=== PATIENT | female | born 1940 | race Caucasian/White ===

== ENCOUNTER 2018-05-04 11:16 | Emergency (ER) | payer OTHER, SELFPAY ==
[2018-05-04 11:30] VITALS: BP 158/88; PULSE 80; RESP 14; TEMP 37.4; O2SAT 98; BMI 21.2
--- NOTE | 2018-05-04 12:11 | ED.WEAKNESS ---
HPI - Weakness General Chief complaint: Weakness Stated complaint: tremors/weakness Time Seen by Provider: 05/04/18 12:08 Source: patient and family Mode of arrival: ambulatory Limitations: no limitations History of Present Illness HPI Narrative: Patient is a 77-year-old female here for evaluation of multiple issues. She states that she has been feeling very fatigued and not having a whole lot energy for several days now. She also has complaints of a tremor in her right upper extremity that she states has been there for a month and also here for evaluation of a sore on her left foot that has also been a 4 month. She does not have a primary care doctor. Has not tried anything for any of the symptoms prior to arrival. Related Data Home Medications Medication Instructions Recorded Confirmed latanoprost 1 drp EYE-BOTH BEDTIME 05/04/18 05/04/18 Previous Rx's Medication Instructions Recorded ciprofloxacin HCl [Cipro] 250 mg PO BID 3 Days #6 tab 05/04/18 Allergies Allergy/AdvReac Type Severity Reaction Status Date / Time Penicillins Allergy Unknown Verified 05/04/18 11:42 Review of Systems Constitutional Denies chills, Reports fatigue, Denies fever(s), Denies frequent falls, Reports lethargy and Reports malaise ENT Ears, Nose, Mouth, and Throat: Denies dizziness Cardiovascular Denies chest pain and Denies dyspnea Respiratory Denies dyspnea Gastrointestinal Gastrointestinal: Denies abdominal pain, Denies diarrhea, Denies nausea and Denies vomiting Genitourinary Reports urinary frequency, Denies dysuria, Denies urinary hesitancy and Reports urinary urgency Comments: Musculoskeletal Denies myalgias, Denies arthralgias, Denies numbness and Denies tingling Comments: Tremor in her right arm Integumentary/Breasts Reports lesions (Outside of her left foot) and Denies rash Neurologic Denies dizziness, Denies frequent falls, Denies memory loss, Denies numbness, Denies sensory deficit, Denies tingling and Reports tremor(s) (Right arm) Psychiatric Denies memory loss Endocrine Reports fatigue [facility] Medical History Healthy adult (Acute) Surgical History No pertinent past surgical history (Acute) Social History Smoking Status: Never smoker Exam Initial Vital Signs Initial Vital Signs: Vital Signs Temperature 99.3 F 05/04/18 11:30 Pulse Rate 80 05/04/18 11:30 Respiratory Rate 14 05/04/18 11:30 Blood Pressure 158/88 H 05/04/18 11:30 Pulse Oximetry 98 05/04/18 11:30 Const General: cooperative, comfortable, well developed, well groomed and No acute distress Orientation: alert, awake and oriented x3 HENMT Head: normal to inspection and normocephalic Resp Effort & Inspection: normal respiratory effort Auscultation: clear to auscultation bilaterally Cardio Rate: regular rate Rhythm: regular rhythm Pulses: radial pulses present GI Inspection: non-distended Palpation: soft, No firm and No tender Back/Spine/Pelvis Back: normal to inspection and No CVA tenderness Skin Other: Patient with a lump at the base of her 5th toe on her left foot. No surrounding erythema. No infection. No ulceration. Does appear to be a thickened callus that is tender. Neuro General: alert, awake and oriented x3 Cranial Nerves: CN's II-XI intact bilaterally Cognition: normal cognition Speech: speech normal Motor: muscle tone normal throughout Sensory Exam: no sensory deficits noted Other: Patient with a tremor in her right upper extremity that she is able to suppress very easily. Is rhythm make. Not pill rolling. Extrem General: normal to inspection and capillary refill normal Course Orders Ordered: ED Orders 05/04/18 11:48 Urine Culture Stat Urine Microscopic Stat 05/04/18 12:06 EKG-12 Lead Stat 05/04/18 12:50 Complete Blood Count AUTO DIFF Stat Comprehensive Metabolic Panel Stat Lipase Stat Partial Thromboplastin Time Stat Prothrombin Time INR Stat Troponin & CK Cardiac Panel Stat Vital Signs - 8 hr 05/04/18 11:30 05/04/18 13:28 05/04/18 14:50 Temperature 99.3 F 97.4 F L Pulse Rate 80 85 76 Respiratory Rate 14 14 15 Blood Pressure 158/88 H Blood Pressure [Left Arm] 148/81 H 144/87 H Pulse Oximetry 98 97 99 MDM - Weakness Lab Data Attestation: I reviewed the patient's lab results. Result diagrams: 05/04/18 12:50 05/04/18 12:50 Lab Results 0905/04/18 05/04/18 Range/Units 11:48 12:50 12:50 WBC 5.6 (4.5-11.0) X10^3/uL RBC 4.36 (4.0-5.2) X10^6/uL Hgb 13.7 (12.0-16.0) g/dL Hct 39.2 (36-46) % MCV 89.8 (80-100) fL MCH 31.4 (26-34) PG MCHC 35.0 (30-36) % RDW 13.7 (11.6-14.8) % Plt Count 188 (150-400) X10^3/uL Neut % (Auto) 71.5 (50-75) % Lymph % (Auto) 20.8 L (25-40) % [place] % (Auto) 7.0 (3-14) % Eos % (Auto) 0.3 L (2-4) % Baso % (Auto) 0.4 (0-2) % Neut # (Auto) 4000 (7649-2098) /uL PT 11.5 (10.1-12.7) SECONDS INR 1.1 (0.9-1.3) APTT 31 (26.4-36.2) SECONDS Sodium (137-145) mmol/L Potassium (3.4-5.1) mmol/L Chloride (98-107) mmol/L Carbon Dioxide (22-32) mmol/L BUN (7-17) mg/dL Creatinine (0.52-1.04) mg/dL Estimated GFR (>60) mL/min BUN/Creatinine Ratio (6-22) Glucose (80-110) mg/dL Calcium (8.4-10.2) mg/dL Total Bilirubin (0.2-1.3) mg/dL AST (14-36) IU/L ALT (9-52) IU/L Alkaline Phosphatase (38-126) U/L Total Creatine Kinase (30-135) U/L CK-MB (CK-2) (<2.37) ng/mL CK-MB (CK-2) Rel Index (1.5-5.0) % Troponin I (0.01-0.034) ng/mL Total Protein (6.3-8.2) g/dL Albumin (3.5-5.0) g/dL Globulin (1.7-4.1) g/dL Albumin/Globulin Ratio (1.0-2.8) Lipase (23-300) U/L Urine RBC 1-5/hpf (0-5/HPF) Urine WBC 5-10/hpf H (0-5/HPF) Ur Squamous Epith Cells 1-5 /hpf Urine Bacteria Many (>30) H (None) Ur Culture Indicated? Not Reportable Micro UA Comment Not Reportable 05/04/18 05/04/18 Range/Units 12:50 12:50 WBC (4.5-11.0) X10^3/uL RBC (4.0-5.2) X10^6/uL Hgb (12.0-16.0) g/dL Hct (36-46) % MCV (80-100) fL MCH (26-34) PG MCHC (30-36) % RDW (11.6-14.8) % Plt Count (150-400) X10^3/uL Neut % (Auto) (50-75) % Lymph % (Auto) (25-40) % [place] % (Auto) (3-14) % Eos % (Auto) (2-4) % Baso % (Auto) (0-2) % Neut # (Auto) (9720-4198) /uL PT (10.1-12.7) SECONDS INR (0.9-1.3) APTT (26.4-36.2) SECONDS Sodium 147 H (137-145) mmol/L Potassium 4.6 (3.4-5.1) mmol/L Chloride 104 (98-107) mmol/L Carbon Dioxide 32 (22-32) mmol/L BUN 19 H (7-17) mg/dL Creatinine 0.70 (0.52-1.04) mg/dL Estimated GFR > 60.0 (>60) mL/min BUN/Creatinine Ratio 27.1 H (6-22) Glucose 100 (80-110) mg/dL Calcium 9.8 (8.4-10.2) mg/dL Total Bilirubin 1.0 (0.2-1.3) mg/dL AST 28 (14-36) IU/L ALT 26 (9-52) IU/L Alkaline Phosphatase 73 (38-126) U/L Total Creatine Kinase 108 (30-135) U/L CK-MB (CK-2) 3.29 H (<2.37) ng/mL CK-MB (CK-2) Rel Index 3.0 (1.5-5.0) % Troponin I < 0.012 (0.01-0.034) ng/mL Total Protein 7.8 (6.3-8.2) g/dL Albumin 4.7 (3.5-5.0) g/dL Globulin 3.1 (1.7-4.1) g/dL Albumin/Globulin Ratio 1.5 (1.0-2.8) Lipase 253 (23-300) U/L Urine RBC (0-5/HPF) Urine WBC (0-5/HPF) Ur Squamous Epith Cells Urine Bacteria (None) Ur Culture Indicated? Micro UA Comment Urine Dip Bedside Urine Glucose Negative Bedside Urine Bilirubin - Negative Bedside Urine Ketone - Negative Urine Specific [place] 1.010 Bedside Urine Occult Blood + Bedside Urine pH 6.0 Bedside Urine Protein - Negative Bedside Urine Urobilinogen - Negative Bedside Urine Nitrite + Positive Bedside Urine Leukocytes + 70 Esterase ECG Data Attestation: I personally reviewed and interpreted this ECG as follows: Prior ECG tracings: not available for review Interpretation: Sinus rhythm Ventricular rate 80 for Left axis deviation Incomplete right bundle branch block Normal QRS Normal QTC MDM Narrative Medical decision making narrative: Patient's electrolytes were unremarkable. EKG is unremarkable. Does have nitrite positive urinalysis also with bacteria and white blood cells. Also complaining of urinary urgency and frequency. Her fatigue over the past couple days could be secondary to this urinary tract infection. Will send home with prescription for antibiotics. Patient has had a chronic right upper extremity tremor. Informed her that this is something that needs to be followed up by her primary care doctor. She does have what appears to be a thickened callus on the lateral aspect of her left foot. This appears to be worsened when she wear shoes and pressure over the area. We did discuss symptomatic treatment such as corn pads and items such as that. No signs of infection. No signs for antibiotics. No indication for acute admission to the hospital. We did discuss the importance of her finding a primary care doctor to discuss her chronic medical conditions. We did discuss return precautions. She expressed understanding and agreement with plan. Discharge Plan Departure Patient Disposition: Home Clinical Impression: Urinary tract infection, Tremor, Fatigue Discharge Date/Time: 05/04/18 15:27 Instructions: Benign Essential Tremor, DI for Urinary Tract Infection (UTI), DI for Fatigue Activity Restrictions/Additional Instructions: Highly recommend that you may contact with a primary care group here in town. Take the antibiotics as directed. Make sure your increasing your fluid intake. Return to the emergency department for any new or worsening symptoms Prescriptions: New ciprofloxacin HCl [Cipro] 250 mg tablet 250 mg PO BID 3 Days Qty: 6 RF: 0 No Action latanoprost 0.005 % Drops 1 drp EYE-BOTH BEDTIME RF: 0 Stand Alone Forms: Work/School Restrictions
[2018-05-04 13:03] LABS: Add Manual Diff / Slide Review NO; Basophils Percent Auto 0.4 % (0-2); Eosinophils Percent Auto 0.3 % (2-4); Hematocrit 39.2 % (36-46); Hemoglobin 13.7 g/dL (12.0-16.0); Lymphocytes Percent Auto 20.8 % (25-40); Mean Corpuscular Hemoglobin 31.4 PG (26-34); Mean Corpuscular Volume 89.8 fL (80-100); Neutrophils Absolute Auto 4000 /uL (3000-5900); Neutrophils Percent Auto 71.5 % (50-75); Platelet Count 188 X10^3/uL (150-400); Red Blood Cell Count 4.36 X10^6/uL (4.0-5.2); Red Cell Distribution Width 13.7 % (11.6-14.8); White Blood Cell Count 5.6 X10^3/uL (4.5-11.0)
[2018-05-04 13:11] LABS: INR 1.1 (0.9-1.3); Prothrombin Time 11.5 SECONDS (10.1-12.7)
[2018-05-04 13:13] LABS: Creatine Kinase 108 U/L (30-135); PTT Partial Thromboplastin Tim 31 SECONDS (26.4-36.2)
[2018-05-04 13:14] LABS: Alanine Aminotransferase 26 IU/L (9-52); Albumin 4.7 g/dL (3.5-5.0); Albumin Globulin Ratio 1.5 (1.0-2.8); Alkaline Phosphatase 73 U/L (38-126); Aspartate Aminotransferase 28 IU/L (14-36); BUN Creatinine Ratio 27.1 (6-22); Blood Urea Nitrogen 19 mg/dL (7-17); Calcium 9.8 mg/dL (8.4-10.2); Carbon Dioxide 32 mmol/L (22-32); Chloride 104 mmol/L (98-107); Estimated Glomerular Filt Rate > 60.0 mL/min (>60); Globulin 3.1 g/dL (1.7-4.1); Glucose 100 mg/dL (80-110); HEMOLYSIS 18 (0-50); Lipase 253 U/L (23-300); Potassium 4.6 mmol/L (3.4-5.1); Sodium 147 mmol/L (137-145); Total Protein 7.8 g/dL (6.3-8.2)
[2018-05-04 13:28] VITALS: BP 148/81; PULSE 85; RESP 14; O2SAT 97
[2018-05-04 13:29] LABS: Creatine Kinase MB 3.29 ng/mL (<2.37); Troponin I < 0.012 ng/mL (0.01-0.034)
[2018-05-04 14:11] LABS: Bacteria Urine Many (>30); RBC Urine 1-5/HPF (0-5/HPF); Squamous Epithelial Cell Urine 1-5 /HPF; WBC Urine 5-10/HPF (0-5/HPF)
[2018-05-04 14:50] VITALS: BP 144/87; PULSE 76; RESP 15; TEMP 36.3; O2SAT 99
== END 2018-05-04 15:27 | disposition home or self-care (01) ==
PROVIDERS: Nurse Practitioner Family; Emergency Provider Emergency Medicine
DX: N39.0 Urinary tract infection, site not specified (principal); R25.1 Tremor, unspecified; R53.83 Other fatigue
CPT/HCPCS: 36591; 80053; 81003; 81015; 82550; 82553; 83690; 84484; 85025; 85610; 85730; 87077; 87086; 87186; 93005; 93010; 99282; 99284

== ENCOUNTER → 2018-05-12 19:17 | Outpatient (CLI) | payer OTHER, SELFPAY | PROVIDERS: Visit Provider Physician Assistant | DX: N39.0 Urinary tract infection, site not specified (principal) | CPT/HCPCS: 87086 ==

== ENCOUNTER → 2020-12-30 08:41 | Outpatient (CLI) | payer OTHER, MEDICARE, SELFPAY ==
--- NOTE | 2020-12-30 | DI.MRI.S_ITS ---
PROCEDURE: MR HEAD/BRAIN WO CON INDICATIONS: Parkinson's disease. Abnormal weight loss TECHNIQUE: Non-contrast axial T1 spin echo, axial T2 fast spin echo, sagittal and axial FLAIR, coronal T2 fast spin echo, axial gradient echo, axial diffusion and ADC through the brain. COMPARISON: None. FINDINGS: Image quality: Diagnostic, with note made of motion artifact. CSF spaces: Ventricles appear symmetric in size and shape. Basal cisterns are patent. No extra-axial fluid collections. Brain: No intracranial bleeds or mass effects. There is cerebral volume loss for age. There are periventricular and deep white matter chronic small vessel ischemic changes. Brainstem appears normal. Diffusion-weighted images show no acute ischemic insults. No chronic ischemic insults. Normal intravascular flow voids are present. Note is made of a cavum septum pellucidum. When discovered in isolation, this is considered to be a developmental variant of no clinical consequence. Skull and face: Calvarial bone marrow is normal in signal. Orbits are normal. Note is made of bilateral lens replacements. Sinuses: Moderate mucosal thickening is seen within the posterior maxillary sinuses. Mild mucosal thickening is seen elsewhere within the paranasal sinuses. No abnormal fluid is seen within the mastoid air cells. IMPRESSION: Intracranial study within normal limits for age. No masses or mass effect. No findings of acute or subacute infarction can be seen. Paranasal sinus disease incidentally noted. Dictated by: Reilly Alfredo M.D. on 12/30/2020 at 8:50 Approved by: Reilly Alfredo M.D. on 12/30/2020 at 8:52
--- NOTE | 2020-12-30 | DI.CT.S_ITS ---
PROCEDURE: CT CHEST ABD PEL WO CON INDICATIONS: Parkinson's disease Abnormal weight loss TECHNIQUE: After the administration of oral contrast, 5 mm thick sections acquired from the lung apices to the symphysis pubis. 5 mm thick coronal and sagittal reformats acquired, with additional 7 mm coronal MIP reformats through the lungs. For radiation dose reduction, the following was used: automated exposure control, adjustment of mA and/or kV according to patient size. COMPARISON: None. FINDINGS: Image quality: Excellent. CHEST: Lungs and pleura: No acute pulmonary opacities. There is mild biapical pleural parenchymal scarring. Mild linear and dependent atelectasis or scarring is seen in the left lung base. No pleural effusions or pneumothorax. Central and peripheral airways are patent are normal in caliber. Mediastinum: Heart size is normal. Trace pericardial effusion is most likely physiologic. Moderate coronary artery atherosclerotic calcifications are seen. No mediastinal adenopathy by CT size criteria. Thoracic aorta and central pulmonary arteries are normal in size. Mild aortic atherosclerotic calcifications. Esophagus is mildly patulous. No hiatal hernia. Chest wall: No axillary or supraclavicular adenopathy by size criteria. Thyroid gland is unremarkable. ABDOMEN: Solid organs: Liver is normal in size. Multiple hypodense lesions are seen throughout the liver. The largest of which is seen in the superior right hepatic lobe and measures 2.4 cm with fluid attenuation, compatible with a cyst. Nonspecific coarse calcifications are seen in the left hepatic lobe near the hilum. Trace dependent calcifications in the gallbladder most likely represent tiny gallstones. A few scattered coarse calcifications in the pancreas that are more numerous in the tail may indicate chronic pancreatitis. Spleen is normal in size. No adrenal nodules. Both kidneys are normal in size, without hydronephrosis or nephrolithiasis. A 4.7 cm simple cyst is seen in the interpolar region of the right kidney. Peritoneum and bowel: Numerous diverticula are seen in the sigmoid colon without signs of acute diverticulitis. Surgical clips are seen in the right lower quadrant. The appendix is not definitely visualized. No ascites or pneumoperitoneum. Nodes and vessels: No retroperitoneal or mesenteric adenopathy by size criteria. Aorta and inferior vena cava are normal in size. Moderate aortic atherosclerotic calcifications. Miscellaneous: No ventral hernias. PELVIS: Genitourinary: Bladder wall thickness is normal. A coarse calcification in the uterus is most likely a degenerated fibroid. No suspicious adnexal mass is seen. Miscellaneous: No inguinal hernias or adenopathy. Bones: No suspicious bony lesions. No vertebral body compression fractures. There is levoconvex curvature of the lumbar spine. Multilevel degenerative changes are seen. IMPRESSION: 1. No acute abnormality. No explanation for patient's weight loss identified in the chest, abdomen, or pelvis. 2. A few coarse calcifications are seen in the pancreas that may represent mild chronic pancreatitis. Dedicated pancreatic MRI may be obtained if there is suspicion for a pancreatic neoplasm. 3. Cholelithiasis. 4. Sigmoid colonic diverticulosis. Dictated by: Andre Mehta M.D. on 12/30/2020 at 10:03 Approved by: Andre Mehta M.D. on 12/30/2020 at 10:22
== END ==
PROVIDERS: PCP Physician Assistant; Referring Provider Psychiatry & Neurology Neuromuscular Medicine; Visit Provider Psychiatry & Neurology Neuromuscular Medicine
DX: G20 Parkinson's disease (principal); R63.4 Abnormal weight loss; K80.20 Calculus of gallbladder without cholecystitis without obstruction; K57.30 Diverticulosis of large intestine without perforation or abscess without bleeding; J32.8 Other chronic sinusitis
CPT/HCPCS: 70551; 71250; 74176

== ENCOUNTER → 2021-03-24 09:42 | Outpatient (CLI) | payer OTHER, SELFPAY ==
--- NOTE | 2021-03-24 | DI.MRI.S_ITS ---
PROCEDURE: MR ABDOMEN WO/W CON INDICATIONS: Other specified diseases of pancreas TECHNIQUE: Coronal HASTE, axial 2D FLASH in- and [id number]; axial breath-hold T2 FSE with fat saturation from the hepatic dome to the iliac crests. Oblique coronal thin-slice and radial thick slab HASTE through the biliary system. Dynamic axial VIBE during administration of contrast. Post-contrast coronal VIBE or 2D FLASH with fat saturation from the hepatic dome to the iliac crests. Optional diffusion weighted imaging and ADC may be performed. COMPARISON: [facility], CT, CT CHEST ABD PEL WO CON, 12/30/2020, 9:51. FINDINGS: Image quality: There is motion artifact limiting evaluation. Pancreas and biliary system: No discrete solid pancreatic mass identified. The pancreatic duct is normal in caliber. Along the anterior aspect of the pancreatic head, there is a small thin-walled cyst measuring up to 0.9 x 0.6 cm in transverse dimension on series 4, image 22. More inferiorly within the pancreatic head, there is a smaller cyst measuring up to 0.6 x 0.6 cm in transverse dimension on series 6, image 19. These demonstrate no discrete solid internal components or internal enhancement following contrast administration. Solid organs: Multiple hepatic cysts are demonstrated in the liver. No discrete solid mass or definite suspicious enhancement. Spleen is normal in size and enhancement. No adrenal nodules. Kidneys demonstrate no hydronephrosis. Multiple bilateral renal cysts are demonstrated. Nodes and vessels: No retroperitoneal or mesenteric adenopathy by size criteria. Aorta and inferior vena cava are normal in size. Bowel and peritoneum: Visualized bowel loops are normal in caliber throughout. No free fluid. Lung bases: No basal pleural effusions. There is mild atelectasis in the left lower lobe. Heart size is normal. Bones and soft tissues: No ventral hernias. Bone marrow is normal in overall signal. IMPRESSION: 1. No discrete solid pancreatic mass identified. 2. Small thin-walled cystic lesions within the pancreatic head as described. 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 A follow-up study is recommended to demonstrate stability in 2 years if clinically indicated. Dictated by: Wilfredo Henning M.D. on 03/24/2021 at 15:06 Approved by: Wilfredo Henning M.D. on 03/24/2021 at 15:18
== END ==
PROVIDERS: Family Provider Physician Assistant; PCP Physician Assistant; Referring Provider Physician Assistant; Visit Provider Physician Assistant
DX: K86.89 Other specified diseases of pancreas (principal); R93.3 Abnormal findings on diagnostic imaging of other parts of digestive tract
CPT/HCPCS: 74183; A9579

== ENCOUNTER 2021-04-25 11:00 | Outpatient (RCR) | payer OTHER, MEDICARE, SELFPAY ==
--- NOTE | 2021-02-10 16:01 | PT.OIE ---
Current Diagnoses Parkinson's disease (02/10/21) Lumbago with sciatica, right side (02/10/21) Other abnormalities of gait and mobility (02/10/21) Past Medical History (Last Reviewed 05/04/18 @ 16:18 by Maximiliano White DO) Healthy adult Past Surgical History (Last Reviewed 05/04/18 @ 16:18 by Maximiliano White DO) No pertinent past surgical history Visit Care Team Role Provider Type Laney Damon PA-C Family Provider Non-Staff Primary Care Provider Specialty: Medical Address: [address] [place] [address], [id number] Email: Macho Silva MD Attending Provider Non-Staff Referring Provider Specialty: Neurology Psychiatry Address: [address] [place] [address] [place], [address] Email: Physical Therapy Initial Evaluation PT-OP-A Visit Information Start: 02/10/21 10:31 Freq: Status: Active Protocol: Document 02/10/21 11:00 AMB (Rec: 02/10/21 15:42 AMB [email or web address]) Out-Patient Physical Therapy Visit Information Visit Information Visit Type Initial Evaluation Visit Start Time 11:00 Visit Stop Time 12:00 Total Visit Minutes 60 Visit Number 1 PT-OP-B Current Condition Start: 02/10/21 10:31 Freq: Status: Active Protocol: Document 02/10/21 11:00 AMB (Rec: 02/10/21 11:21 AMB [id number]) Current Condition History of Current Condition Onset Date 1+ year ago Current Complaints Parkinsons- stiffness History of Current Condition Diagnosed a year ago, sx probably started longer than that. Still working at [employer] in the [place], notes R leg pain at the end of her shift. Attends with soon to be daughter in law Maite. Lives in a split level with son, DIL and 2 grandsons, her works away from home for multiple weeks at a time. States stairs are not a problem. 1 fall in the last 6 months: Tripped in the dark when feeding the ducks was icy , no other falls, does have blisters on top of toes from toes curling up, thinks that's why she's walking differently . Has questions about her medications. Reports recent onset weight loss, does have a hard time finding the time to eat with timing of meds and work. Is supposed to get MRI of pancreas because of weightloss hasn't happened yet . Still drives. Treatment Goals Patient/Caregiver Goals Getting dressed (takes a long time/stiffness). 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 Prior Functional Status Baseline Function- ADL's Independent Baseline Function- Mobility Independent Current Functional Impairments (Reported) Functional Limitations- ADL's Takes a long time to get dressed, do buttons. Personal Factors Other Personal Factors That May Effect Scoliosis, pt reported R Therapy/Recovery sciatica, hammer toes PT-OP-E Functional Tests Start: 02/10/21 10:31 Freq: Status: Active Protocol: Document 02/10/21 11:00 AMB (Rec: 02/10/21 15:42 AMB [email or web address]) Functional Tests 6 Minute Walk Test Distance 1162 Device Used none Five Times Sit to Stand Test Score 11 PT-OP-G Mobility & Gait Start: 02/10/21 10:31 Freq: Status: Active Protocol: Document 02/10/21 11:00 AMB (Rec: 02/10/21 15:42 AMB [email or web address]) OP Mobility Evaluation Bed Mobility Rolling I Supine to and from Sit I Transfers Sit to Stand I OP Gait Assessment Comments Gait Comments No trunk rotation or arm swing , R foot tends to slap towards end of 6 minutes PT-OP-M Strength Start: 02/10/21 10:31 Freq: Status: Active Protocol: Document 02/10/21 11:00 AMB (Rec: 02/10/21 15:42 AMB [email or web address]) Hip Strength Hip Manual Muscle Testing Right Flexion (L2) 4- Good- Extension (S1) 4- Good- Abduction 4- Good- Comments low back pain with R MMT Left Flexion (L2) 4 Good Extension (S1) 4 Good Abduction 4 Good Knee Strength Knee Manual Muscle Testing Right Flexion (S2) 4 Good Extension (L3) 4 Good Left Flexion (S2) 4 Good Extension (L3) 4+ Good+ Ankle/Foot Strength Ankle and Foot Manual Muscle Testing Left Dorsiflexion (L4) 4 Good Plantarflexion (S1) 4+ Good+ Right Dorsiflexion (L4) 4- Good- Plantarflexion (S1) 4+ Good+ PT-OP-T Assessment and Plan Start: 02/10/21 10:31 Freq: Status: Active Protocol: Document 02/10/21 11:00 AMB (Rec: 02/10/21 16:01 AMB [email or web address]) Physical Therapy Assessment Rehab Potential Rehabilitation Potential Good Evaluation Complexity Number of Personal Factors/Comorbidities 1-2 Number of Body Systems Impaired 4 or More Clinical Presentation at Evaluation Evolving Impairments Impairments Functional Activities,Gait, Pain,Strength Goals Three Impairment HEP Short Term Goal (STG) Kajal will be independent and consistent with a HEP for LSVT BIG. STG Duration 2 weeks Two Impairment ADLs Short Term Goal (STG) Kajal will improve her ability to dress so that she can easily get her right leg in her pant leg. STG Duration 2 weeks Fpc Goal (LTG) Kajal will move from sit to stand with good body mechanics and without back pain. LTG Duration 4 weeks One Impairment Gait Short Term Goal (STG) Kajal will ambulate with good trunk rotation and arm swing. STG Duration 2 weeks Food Specialist Goal (LTG) Kajal will increase her 6MWT distance to at least 1, 300 feet to meet norms for her age/gender. LTG Duration 4 weeks Assessment Summary Assessment Kajal attends physical therapy with recent diagnosis of Parkinson's, she does have right sided tremor, stiffness with her gait, and right sided pain and weakness related to back pain and what she describes as sciatica. She does have recent weightloss which sounds unrealated to her Parkinson's, but did encourage her to prioritize eating and to follow up with imaging that was ordered. LSVT BIG therapy will work to improve her gait, dynamic stability, dressing, and overall stiffness. She is not currently exercising so she should benefit significantly from the program. Physical Therapy Plan Frequency and Duration Frequency of Treatment 4x/Week Duration of Treatment 5 weeks Plan of Care Start Date 02/10/21 Plan of Care End Date 03/17/21 Therapeutic Interventions Therapeutic Interventions Balance Training,Gait Training ,Home Exercise Program,Manual Therapy,Neuromuscular Re- education,Self-Care/Home Management,Therapeutic Activities,Therapeutic Exercises Next Visit Focus/Plan Next Note Type Treatment Note Next Visit Plan Establish standard LSVT BIG exercise program.
--- NOTE | 2021-02-10 16:04 | PT.OPPOC ---
Physical, Occupational & Speech Therapy At [facility] Current Diagnoses Parkinson's disease (02/10/21) Lumbago with sciatica, right side (02/10/21) Other abnormalities of gait and mobility (02/10/21) Visit Care Team Role Provider Type Laney Damon PA-C Family Provider Non-Staff Primary Care Provider Specialty: Medical Address: [address] [place] [address], [address] Email: Macho Silva MD Attending Provider Non-Staff Referring Provider Specialty: Neurology Psychiatry Address: [address] [place] [address] [place], [address] Email: Plan Of Care PT-OP-T Assessment and Plan Start: 02/10/21 10:31 Freq: Status: Active Protocol: Document 02/10/21 11:00 AMB (Rec: 02/10/21 16:01 AMB [email or web address]) Physical Therapy Assessment Rehab Potential Rehabilitation Potential Good Evaluation Complexity Number of Personal Factors/Comorbidities 1-2 Number of Body Systems Impaired 4 or More Clinical Presentation at Evaluation Evolving Impairments Impairments Functional Activities,Gait, Pain,Strength Goals Three Impairment HEP Short Term Goal (STG) Kajal will be independent and consistent with a HEP for LSVT BIG. STG Duration 2 weeks Two Impairment ADLs Short Term Goal (STG) Kajal will improve her ability to dress so that she can easily get her right leg in her pant leg. 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 LTG Duration 4 weeks One Impairment Gait Short Term Goal (STG) Kajal will ambulate with good trunk rotation and arm swing. STG Duration 2 weeks Usp Goal (LTG) Kajal will increase her 6MWT distance to at least 1, 300 feet to meet norms for her age/gender. LTG Duration 4 weeks Assessment Summary Assessment Kajal attends physical therapy with recent diagnosis of Parkinson's, she does have right sided tremor, stiffness with her gait, and right sided pain and weakness related to back pain and what she describes as sciatica. She does have recent weightloss which sounds unrealated to her Parkinson's, but did encourage her to prioritize eating and to follow up with imaging that was ordered. LSVT BIG therapy will work to improve her gait, dynamic stability, dressing, and overall stiffness. She is not currently exercising so she should benefit significantly from the program. Physical Therapy Plan Frequency and Duration Frequency of Treatment 4x/Week Duration of Treatment 5 weeks Plan of Care Start Date 02/10/21 Plan of Care End Date 03/17/21 Therapeutic Interventions Therapeutic Interventions Balance Training,Gait Training ,Home Exercise Program,Manual Therapy,Neuromuscular Re- education,Self-Care/Home Management,Therapeutic Activities,Therapeutic Exercises Next Visit Focus/Plan Next Note Type Treatment Note Next Visit Plan Establish standard LSVT BIG exercise program. Plan of Care Dates Plan of Care Start Date 02/10/21 Plan of Care End Date 03/17/21 Electronically Signed by: Bhumi Kirby, PT 02/10/21 [id number] Please Sign and Return: I have reviewed this Plan of Care and certify that the skilled therapy services above are required to meet the patient?s needs. Physician Signature Date Printed Name and Credentials Clinical Instructor Signature Printed Name and Credentials
--- NOTE | 2021-02-13 13:00 | PT.OTN ---
Current Diagnoses Parkinson's disease (02/13/21) Lumbago with sciatica, right side (02/13/21) Other abnormalities of gait and mobility (02/13/21) Physical Therapy Treatment Note PT-OP-A Visit Information Start: 02/10/21 10:31 Freq: Status: Active Protocol: Document 02/13/21 12:47 MA (Rec: 02/13/21 13:00 MA [email or web address]) Out-Patient Physical Therapy Visit Information Visit Information Visit Type Treatment Note Visit Start Time 11:00 Visit Stop Time 11:55 Total Visit Minutes 55 Visit Number 2 Number of BUHR DRESSER Visits 1 PT-OP-B Current Condition Start: 02/10/21 10:31 Freq: Status: Active Protocol: Document 02/10/21 11:00 AMB (Rec: 02/10/21 11:21 AMB [id number]) Current Condition History of Current Condition Onset Date 1+ year ago Current Complaints Parkinsons- stiffness History of Current Condition Diagnosed a year ago, sx probably started longer than that. Still working at [email or web address] in the [facility], notes R leg pain at the end of her shift. Attends with soon to be daughter in law Maite. Lives in a split level with son, RENUKA and 2 grandsons, her works away from home for multiple weeks at a time. States stairs are not a problem. 1 fall in the last 6 months: Tripped in the dark when feeding the ducks was icy , no other falls, does have blisters on top of toes from toes curling up, thinks that's why she's walking differently . Has questions about her medications. Reports recent onset weight loss, does have a hard time finding the time to eat with timing of meds and work. Is supposed to get MRI of pancreas because of weightloss hasn't happened yet . Still drives. Treatment Goals Patient/Caregiver Goals Getting dressed (takes a long time/stiffness). 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 Prior Functional Status Baseline Function- ADL's Independent Baseline Function- Mobility Independent Current Functional Impairments (Reported) Functional Limitations- ADL's Takes a long time to get dressed, do buttons. Personal Factors Other Personal Factors That May Effect Scoliosis, pt reported R Therapy/Recovery sciatica, hammer toes PT-OP-C Subjective Start: 02/10/21 10:31 Freq: Status: Active Protocol: Document 02/13/21 12:47 MA (Rec: 02/13/21 13:00 MA [email or web address]) OP-PT Subjective Patient Comments Patient Comments Pt is ready to start program. She arrives with her soon-to- be [id number]. PT-OP-E Functional Tests Start: 02/10/21 10:31 Freq: Status: Active Protocol: Document 02/10/21 11:00 AMB (Rec: 02/10/21 15:42 AMB [email or web address]) Functional Tests 6 Minute Walk Test Distance 1162 Device Used none Five Times Sit to Stand Test Score 11 PT-OP-G Mobility & Gait Start: 02/10/21 10:31 Freq: Status: Active Protocol: Document 02/10/21 11:00 AMB (Rec: 02/10/21 15:42 AMB [email or web address]) OP Mobility Evaluation Bed Mobility Rolling I Supine to and from Sit I Transfers Sit to Stand I OP Gait Assessment Comments Gait Comments No trunk rotation or arm swing , R foot tends to slap towards end of 6 minutes PT-OP-M Strength Start: 02/10/21 10:31 Freq: Status: Active Protocol: Document 02/10/21 11:00 AMB (Rec: 02/10/21 15:42 AMB [email or web address]) Hip Strength Hip Manual Muscle Testing Right Flexion (L2) 4- Good- Extension (S1) 4- Good- Abduction 4- Good- Comments low back pain with R MMT Left Flexion (L2) 4 Good Extension (S1) 4 Good Abduction 4 Good Knee Strength Knee Manual Muscle Testing Right Flexion (S2) 4 Good Extension (L3) 4 Good Left Flexion (S2) 4 Good Extension (L3) 4+ Good+ Ankle/Foot Strength Ankle and Foot Manual Muscle Testing Left Dorsiflexion (L4) 4 Good Plantarflexion (S1) 4+ Good+ Right Dorsiflexion (L4) 4- Good- Plantarflexion (S1) 4+ Good+ PT-OP-Q Treatments Start: 02/10/21 10:31 Freq: Status: Active Protocol: Document 02/13/21 12:47 MA (Rec: 02/13/21 13:00 MA [email or web address]) Therapeutic Activity Therapeutic Activity Handwriting Reps/Minutes 5 min Comments breaks for finger flicks Gait Training Gait Activity Walking Description BIG walking Device Used none Surface smooth Distance/Duration 300 ft Treatment Focus big arm swings Neuro Re-Education Treatment Other Activities Sit<>Stand Details standard height chair Reps/Duration x10 Sideways Rock & Reach Details chair for balance Reps/Duration x10 each Fwd Rock & reach Details chair for balance Reps/Duration x10 ea Backwards Step & Reach Details chair for balance Reps/Duration x8 ea Sideways step & reach Details chair for balance Reps/Duration x8 ea Fwd Step & Reach Details chair for balance Reps/Duration x8 ea Side to Side Reps/Duration x8 ea Comments with finger flicks Floor to Ceiling Details standard chair Reps/Duration x8 Comments with finger flicks Self-Care/Home Management Treatment Education Caregiver Education Explained the goal of the BIG program to [id number] and pt. Reviewed functional task form and how we can practice tasks in therapy to improve at home. PT-OP-T Assessment and Plan Start: 02/10/21 10:31 Freq: Status: Active Protocol: Document 02/13/21 12:47 MA (Rec: 02/13/21 13:00 MA [email or web address]) Physical Therapy Assessment Goals Three Impairment HEP Short Term Goal (STG) Kajal will be independent and consistent with a HEP for LSVT BIG. STG Duration 2 weeks Two Impairment ADLs Short Term Goal (STG) Kajal will improve her ability to dress so that she can easily get her right leg in her pant leg. STG Duration 2 weeks Intermediate Goal (LTG) Kajal will move from sit to stand with good body mechanics and without back pain. LTG Duration 4 weeks One Impairment Gait Short Term Goal (STG) Kajal will ambulate with good trunk rotation and arm swing. STG Duration 2 weeks Washing And Screening Plant Supervisor Goal (LTG) Kajal will increase her 6MWT distance to at least 1, 300 feet to meet norms for her age/gender. LTG Duration 4 weeks Assessment Summary Assessment Kajal attends with her [id number] who will be doing the exercises at home with pt. Discussed the BIG program with pt and reviewed functional task form. Pt has the most difficulty making her bed and buttoning her shirt due to needing better hand dexterity. Talked about finger flicking before and during activities that involve fine motor tasks with hands. Pt needed to modify standing exercises by holding back of chair with one hand during BIG exercises. She needed frequent breaks, stopping after each exercise to sit and rest. Pt would benefit from BIG program for increasing endurance, amplitude, and improving gait. Physical Therapy Plan Frequency and Duration Frequency of Treatment 4x/Week Duration of Treatment 5 weeks Plan of Care Start Date 02/10/21 Plan of Care End Date 03/17/21 Therapeutic Interventions Therapeutic Interventions Balance Training,Gait Training ,Home Exercise Program,Manual Therapy,Neuromuscular Re- education,Self-Care/Home Management,Therapeutic Activities,Therapeutic Exercises Next Visit Focus/Plan Next Note Type Treatment Note Next Visit Plan Continue working on BIG exercises. Begin BIG walking outside, work on buttoning/ unbottoning, and bed mobility.
--- NOTE | 2021-02-14 15:43 | PT.OTN ---
Current Diagnoses Parkinson's disease (02/14/21) Lumbago with sciatica, right side (02/14/21) Other abnormalities of gait and mobility (02/14/21) Physical Therapy Treatment Note PT-OP-A Visit Information Start: 02/10/21 10:31 Freq: Status: Active Protocol: Document 02/14/21 11:00 AMB (Rec: 02/14/21 12:01 AMB [id number]) Out-Patient Physical Therapy Visit Information Visit Information Visit Type Treatment Note Visit Start Time 11:00 Visit Stop Time 12:00 Total Visit Minutes 60 Visit Number 3 PT-OP-B Current Condition Start: 02/10/21 10:31 Freq: Status: Active Protocol: Document 02/10/21 11:00 AMB (Rec: 02/10/21 11:21 AMB [id number]) Current Condition History of Current Condition Onset Date 1+ year ago Current Complaints Parkinsons- stiffness History of Current Condition Diagnosed a year ago, sx probably started longer than that. Still working at [employer] in the [facility], notes R leg pain at the end of her shift. Attends with soon to be daughter in law Maite. Lives in a split level with son, RENUKA and 2 grandsons, her works away from home for multiple weeks at a time. States stairs are not a problem. 1 fall in the last 6 months: Tripped in the dark when feeding the ducks was icy , no other falls, does have blisters on top of toes from toes curling up, thinks that's why she's walking differently . Has questions about her medications. Reports recent onset weight loss, does have a hard time finding the time to eat with timing of meds and work. Is supposed to get MRI of pancreas because of weightloss hasn't happened yet . Still drives. Treatment Goals Patient/Caregiver Goals Getting dressed (takes a long time/stiffness). 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 Prior Functional Status Baseline Function- ADL's Independent Baseline Function- Mobility Independent Current Functional Impairments (Reported) Functional Limitations- ADL's Takes a long time to get dressed, do buttons. Personal Factors Other Personal Factors That May Effect Scoliosis, pt reported R Therapy/Recovery sciatica, hammer toes PT-OP-C Subjective Start: 02/10/21 10:31 Freq: Status: Active Protocol: Document 02/14/21 11:00 AMB (Rec: 02/14/21 15:43 AMB [email or web address]) OP-PT Subjective Patient Comments Patient Comments Pt and DIL state that they did the exercises yesterday on the deck and that they aren't sure if they're doing them correctly but that they did them, and she felt good after PT, a bit energized. PT-OP-E Functional Tests Start: 02/10/21 10:31 Freq: Status: Active Protocol: Document 02/10/21 11:00 AMB (Rec: 02/10/21 15:42 AMB [email or web address]) Functional Tests 6 Minute Walk Test Distance 1162 Device Used none Five Times Sit to Stand Test Score 11 PT-OP-G Mobility & Gait Start: 02/10/21 10:31 Freq: Status: Active Protocol: Document 02/10/21 11:00 AMB (Rec: 02/10/21 15:42 AMB [email or web address]) OP Mobility Evaluation Bed Mobility Rolling I Supine to and from Sit I Transfers Sit to Stand I OP Gait Assessment Comments Gait Comments No trunk rotation or arm swing , R foot tends to slap towards end of 6 minutes PT-OP-M Strength Start: 02/10/21 10:31 Freq: Status: Active Protocol: Document 02/10/21 11:00 AMB (Rec: 02/10/21 15:42 AMB [email or web address]) Hip Strength Hip Manual Muscle Testing Right Flexion (L2) 4- Good- Extension (S1) 4- Good- Abduction 4- Good- Comments low back pain with R MMT Left Flexion (L2) 4 Good Extension (S1) 4 Good Abduction 4 Good Knee Strength Knee Manual Muscle Testing Right Flexion (S2) 4 Good Extension (L3) 4 Good Left Flexion (S2) 4 Good Extension (L3) 4+ Good+ Ankle/Foot Strength Ankle and Foot Manual Muscle Testing Left Dorsiflexion (L4) 4 Good Plantarflexion (S1) 4+ Good+ Right Dorsiflexion (L4) 4- Good- Plantarflexion (S1) 4+ Good+ PT-OP-Q Treatments Start: 02/10/21 10:31 Freq: Status: Active Protocol: Document 02/14/21 11:00 AMB (Rec: 02/14/21 15:43 AMB [email or web address]) Therapeutic Activity Therapeutic Activity 1 Name folding hand towel Reps/Minutes 5 min Gait Training Gait Activity Walking Description BIG walking Device Used none Surface smooth Distance/Duration 300 ft Treatment Focus big arm swings Comments difficult while holding purse Neuro Re-Education Treatment Other Activities Sit<>Stand Details standard height chair Reps/Duration x10 Sideways Rock & Reach Details chair for balance Reps/Duration x10 each Fwd Rock & reach Details chair for balance Reps/Duration x10 ea Backwards Step & Reach Details chair for balance Reps/Duration x8 ea Sideways step & reach Details chair for balance Reps/Duration x8 ea Fwd Step & Reach Details chair for balance Reps/Duration x8 ea Side to Side Reps/Duration x8 ea Comments with finger flicks- modified for back pain Floor to Ceiling Details standard chair Reps/Duration x8 Comments with finger flicks PT-OP-T Assessment and Plan Start: 02/10/21 10:31 Freq: Status: Active Protocol: Document 02/14/21 11:00 AMB (Rec: 02/14/21 15:43 AMB [email or web address]) Physical Therapy Assessment Goals Three Impairment HEP Short Term Goal (STG) Kajal will be independent and consistent with a HEP for LSVT BIG. STG Duration 2 weeks Two Impairment ADLs Short Term Goal (STG) Kajal will improve her ability to dress so that she can easily get her right leg in her pant leg. STG Duration 2 weeks R&D Lab Technician Goal (LTG) Kajal will move from sit to stand with good body mechanics and without back pain. LTG Duration 4 weeks One Impairment Gait Short Term Goal (STG) Kajal will ambulate with good trunk rotation and arm swing. STG Duration 2 weeks R&D Lab Technician Goal (LTG) Kajal will increase her 6MWT distance to at least 1, 300 feet to meet norms for her age/gender. LTG Duration 4 weeks Assessment Summary Assessment Kajal's back pain bothered her with rotational exercises but otherwise [facility] was able to tolerate them well. 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 Physical Therapy Plan Frequency and Duration Frequency of Treatment 4x/Week Duration of Treatment 5 weeks Plan of Care Start Date 02/10/21 Plan of Care End Date 03/17/21 Therapeutic Interventions Therapeutic Interventions Balance Training,Gait Training ,Home Exercise Program,Manual Therapy,Neuromuscular Re- education,Self-Care/Home Management,Therapeutic Activities,Therapeutic Exercises Next Visit Focus/Plan Next Note Type Treatment Note Next Visit Plan Continue working on BIG exercises. Begin BIG walking outside, work on buttoning/ unbottoning, and bed mobility.
--- NOTE | 2021-02-15 11:59 | PT.OTN ---
Current Diagnoses Parkinson's disease (02/15/21) Lumbago with sciatica, right side (02/15/21) Other abnormalities of gait and mobility (02/15/21) Physical Therapy Treatment Note PT-OP-A Visit Information Start: 02/10/21 10:31 Freq: Status: Active Protocol: Document 02/15/21 11:15 MA (Rec: 02/15/21 11:59 MA [id number]) Out-Patient Physical Therapy Visit Information Visit Information Visit Type Treatment Note Visit Start Time 11:00 Visit Stop Time 11:55 Total Visit Minutes 55 Visit Number 4 Number of DIESEL ENGINE ENGINEER Visits 1 PT-OP-B Current Condition Start: 02/10/21 10:31 Freq: Status: Active Protocol: Document 02/10/21 11:00 AMB (Rec: 02/10/21 11:21 AMB [id number]) Current Condition History of Current Condition Onset Date 1+ year ago Current Complaints Parkinsons- stiffness History of Current Condition Diagnosed a year ago, sx probably started longer than that. Still working at [employer] in the [facility], notes R leg pain at the end of her shift. Attends with soon to be daughter in law Maite. Lives in a split level with son, RENUKA and 2 grandsons, her works away from home for multiple weeks at a time. States stairs are not a problem. 1 fall in the last 6 months: Tripped in the dark when feeding the ducks was icy , no other falls, does have blisters on top of toes from toes curling up, thinks that's why she's walking differently . Has questions about her medications. Reports recent onset weight loss, does have a hard time finding the time to eat with timing of meds and work. Is supposed to get MRI of pancreas because of weightloss hasn't happened yet . Still drives. Treatment Goals Patient/Caregiver Goals Getting dressed (takes a long time/stiffness). 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 Prior Functional Status Baseline Function- ADL's Independent Baseline Function- Mobility Independent Current Functional Impairments (Reported) Functional Limitations- ADL's Takes a long time to get dressed, do buttons. Personal Factors Other Personal Factors That May Effect Scoliosis, pt reported R Therapy/Recovery sciatica, hammer toes PT-OP-C Subjective Start: 02/10/21 10:31 Freq: Status: Active Protocol: Document 02/15/21 11:15 MA (Rec: 02/15/21 11:59 MA [id number]) OP-PT Subjective Patient Comments Patient Comments Pt states she was in a bad mood yesterday and was having a hard time with everything but is better today. She has already noticed she takes bigger steps since starting on Saturday PT-OP-E Functional Tests Start: 02/10/21 10:31 Freq: Status: Active Protocol: Document 02/10/21 11:00 AMB (Rec: 02/10/21 15:42 AMB [email or web address]) Functional Tests 6 Minute Walk Test Distance 1162 Device Used none Five Times Sit to Stand Test Score 11 PT-OP-G Mobility & Gait Start: 02/10/21 10:31 Freq: Status: Active Protocol: Document 02/10/21 11:00 AMB (Rec: 02/10/21 15:42 AMB [email or web address]) OP Mobility Evaluation Bed Mobility Rolling I Supine to and from Sit I Transfers Sit to Stand I OP Gait Assessment Comments Gait Comments No trunk rotation or arm swing , R foot tends to slap towards end of 6 minutes PT-OP-M Strength Start: 02/10/21 10:31 Freq: Status: Active Protocol: Document 02/10/21 11:00 AMB (Rec: 02/10/21 15:42 AMB [email or web address]) Hip Strength Hip Manual Muscle Testing Right Flexion (L2) 4- Good- Extension (S1) 4- Good- Abduction 4- Good- Comments low back pain with R MMT Left Flexion (L2) 4 Good Extension (S1) 4 Good Abduction 4 Good Knee Strength Knee Manual Muscle Testing Right Flexion (S2) 4 Good Extension (L3) 4 Good Left Flexion (S2) 4 Good Extension (L3) 4+ Good+ Ankle/Foot Strength Ankle and Foot Manual Muscle Testing Left Dorsiflexion (L4) 4 Good Plantarflexion (S1) 4+ Good+ Right Dorsiflexion (L4) 4- Good- Plantarflexion (S1) 4+ Good+ PT-OP-Q Treatments Start: 02/10/21 10:31 Freq: Status: Active Protocol: Document 02/15/21 11:15 MA (Rec: 02/15/21 11:59 MA [id number]) Therapeutic Activity Therapeutic Activity 1 Name folding hand towel & pillow cases Reps/Minutes 5 min Gait Training Gait Activity Walking Description BIG walking Device Used none Surface Smooth & uneven Distance/Duration 300 ft Treatment Focus big arm swings Comments 5 min outdoor walking over curbs, grass, gravel 2x gym laps focusing on BIG arm swing Neuro Re-Education Treatment Other Activities Sit<>Stand Details standard height chair Reps/Duration x10 Sideways Rock & Reach Details chair for balance Reps/Duration x10 each Fwd Rock & reach Details chair for balance Reps/Duration 10 Backwards Step & Reach Details chair for balance Reps/Duration 10 Sideways step & reach Details chair for balance Reps/Duration 10 Fwd Step & Reach Details chair for balance Reps/Duration 10 Side to Side Reps/Duration 10 Comments with finger flicks- modified for back pain Floor to Ceiling Details standard chair Reps/Duration 10 Comments with finger flicks PT-OP-T Assessment and Plan Start: 02/10/21 10:31 Freq: Status: Active Protocol: Document 02/15/21 11:15 MA (Rec: 02/15/21 11:59 MA [id number]) Physical Therapy Assessment Goals Three Impairment HEP Short Term Goal (STG) Kajal will be independent and consistent with a HEP for LSVT BIG. STG Duration 2 weeks Two Impairment ADLs Short Term Goal (STG) Kajal will improve her ability to dress so that she can easily get her right leg in her pant leg. STG Duration 2 weeks Fpc Goal (LTG) Kajal will move from sit to stand with good body mechanics and without back pain. LTG Duration 4 weeks One Impairment Gait Short Term Goal (STG) Kajal will ambulate with good trunk rotation and arm swing. STG Duration 2 weeks Lighting Technician Goal (LTG) Kajal will increase her 6MWT distance to at least 1, 300 feet to meet norms for her age/gender. LTG Duration 4 weeks Assessment Summary Assessment Kajal was more motivated and in a better head space today than yesterday's session . Her back did not bother her during session today and she was able to complete all BIG exercises in 35 min vs 45 min the first day. After big exercises Kajal has a longer stride during gait training. She was able to complete outdoor walkin gtoday with no LOB, SBA with ocassional CGA for grass hills and curbs. Physical Therapy Plan Frequency and Duration Frequency of Treatment 4x/Week Duration of Treatment 5 weeks Plan of Care Start Date 02/10/21 Plan of Care End Date 03/17/21 Therapeutic Interventions Therapeutic Interventions Balance Training,Gait Training ,Home Exercise Program,Manual Therapy,Neuromuscular Re- education,Self-Care/Home Management,Therapeutic Activities,Therapeutic Exercises Next Visit Focus/Plan Next Note Type Treatment Note Next Visit Plan Continue working on BIG exercises. Begin BIG walking outside, work on buttoning/ unbottoning, and bed mobility.
--- NOTE | 2021-02-17 15:15 | PT.OTN ---
Current Diagnoses Parkinson's disease (02/17/21) Lumbago with sciatica, right side (02/17/21) Other abnormalities of gait and mobility (02/17/21) Physical Therapy Treatment Note PT-OP-A Visit Information Start: 02/10/21 10:31 Freq: Status: Active Protocol: Document 02/17/21 11:00 AMB (Rec: 02/17/21 12:01 AMB [id number]) Out-Patient Physical Therapy Visit Information Visit Information Visit Type Treatment Note Visit Start Time 11:00 Visit Stop Time 12:00 Total Visit Minutes 60 Visit Number 5 PT-OP-B Current Condition Start: 02/10/21 10:31 Freq: Status: Active Protocol: Document 02/10/21 11:00 AMB (Rec: 02/10/21 11:21 AMB [id number]) Current Condition History of Current Condition Onset Date 1+ year ago Current Complaints Parkinsons- stiffness History of Current Condition Diagnosed a year ago, sx probably started longer than that. Still working at [employer] in the [facility], notes R leg pain at the end of her shift. Attends with soon to be daughter in law Maite. Lives in a split level with son, RENUKA and 2 grandsons, her works away from home for multiple weeks at a time. States stairs are not a problem. 1 fall in the last 6 months: Tripped in the dark when feeding the ducks was icy , no other falls, does have blisters on top of toes from toes curling up, thinks that's why she's walking differently . Has questions about her medications. Reports recent onset weight loss, does have a hard time finding the time to eat with timing of meds and work. Is supposed to get MRI of pancreas because of weightloss hasn't happened yet . Still drives. Treatment Goals Patient/Caregiver Goals Getting dressed (takes a long time/stiffness). 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 Prior Functional Status Baseline Function- ADL's Independent Baseline Function- Mobility Independent Current Functional Impairments (Reported) Functional Limitations- ADL's Takes a long time to get dressed, do buttons. Personal Factors Other Personal Factors That May Effect Scoliosis, pt reported R Therapy/Recovery sciatica, hammer toes PT-OP-C Subjective Start: 02/10/21 10:31 Freq: Status: Active Protocol: Document 02/17/21 11:00 AMB (Rec: 02/17/21 12:01 AMB [id number]) OP-PT Subjective Patient Comments Patient Comments Pt states she is having a tired day today, but they did the exercises two times yesterday. Overall she feels exercises are helping. PT-OP-E Functional Tests Start: 02/10/21 10:31 Freq: Status: Active Protocol: Document 02/10/21 11:00 AMB (Rec: 02/10/21 15:42 AMB [email or web address]) Functional Tests 6 Minute Walk Test Distance 1162 Device Used none Five Times Sit to Stand Test Score 11 PT-OP-G Mobility & Gait Start: 02/10/21 10:31 Freq: Status: Active Protocol: Document 02/10/21 11:00 AMB (Rec: 02/10/21 15:42 AMB [email or web address]) OP Mobility Evaluation Bed Mobility Rolling I Supine to and from Sit I Transfers Sit to Stand I OP Gait Assessment Comments Gait Comments No trunk rotation or arm swing , R foot tends to slap towards end of 6 minutes PT-OP-M Strength Start: 02/10/21 10:31 Freq: Status: Active Protocol: Document 02/10/21 11:00 AMB (Rec: 02/10/21 15:42 AMB [email or web address]) Hip Strength Hip Manual Muscle Testing Right Flexion (L2) 4- Good- Extension (S1) 4- Good- Abduction 4- Good- Comments low back pain with R MMT Left Flexion (L2) 4 Good Extension (S1) 4 Good Abduction 4 Good Knee Strength Knee Manual Muscle Testing Right Flexion (S2) 4 Good Extension (L3) 4 Good Left Flexion (S2) 4 Good Extension (L3) 4+ Good+ Ankle/Foot Strength Ankle and Foot Manual Muscle Testing Left Dorsiflexion (L4) 4 Good Plantarflexion (S1) 4+ Good+ Right Dorsiflexion (L4) 4- Good- Plantarflexion (S1) 4+ Good+ PT-OP-Q Treatments Start: 02/10/21 10:31 Freq: Status: Active Protocol: Document 02/17/21 11:00 AMB (Rec: 02/17/21 15:15 AMB [email or web address]) Therapeutic Activity Therapeutic Activity 2 Name buttons Comments good unbuttoning, buttoning shirt button took 25-30 seconds Gait Training Gait Activity Walking Description BIG walking Device Used none Surface smooth Distance/Duration 300 ft Treatment Focus big arm swings Comments able to dual task ( conversation) and maintain big walking Neuro Re-Education Treatment Other Activities Sit<>Stand Details standard height chair Reps/Duration x10 Comments 3 reps with airex mat under feet for increased balance challenge--very challenged Sideways Rock & Reach Details chair for balance Reps/Duration x10 each Fwd Rock & reach Details chair for balance Reps/Duration 10 Backwards Step & Reach Details chair for balance Reps/Duration 10 Sideways step & reach Details chair for balance Reps/Duration 10 Fwd Step & Reach Details chair for balance Reps/Duration 10 Side to Side Reps/Duration 10 Comments with finger flicks- modified for back pain Floor to Ceiling Details standard chair Reps/Duration 10 Comments with finger flicks PT-OP-T Assessment and Plan Start: 02/10/21 10:31 Freq: Status: Active Protocol: Document 02/17/21 11:00 AMB (Rec: 02/17/21 15:15 AMB [email or web address]) Physical Therapy Assessment Goals Three Impairment HEP Short Term Goal (STG) Kajal will be independent and consistent with a HEP for LSVT BIG. STG Duration 2 weeks Two Impairment ADLs Short Term Goal (STG) Kajal will improve her ability to dress so that she can easily get her right leg in her pant leg. STG Duration 2 weeks Recycle Driver Goal (LTG) Kajal will move from sit to stand with good body mechanics and without back pain. LTG Duration 4 weeks One Impairment Gait Short Term Goal (STG) Kajal will ambulate with good trunk rotation and arm swing. STG Duration 2 weeks Recycle Driver Goal (LTG) Kajal will increase her 6MWT distance to at least 1, 300 feet to meet norms for her age/gender. LTG Duration 4 weeks Assessment Summary Assessment Kajal had a hard time with buttoning, but BIG walking is going quite well. Did have a bit of back pain with rotational exercises again, but not as bad. Physical Therapy Plan Next Visit Focus/Plan Next Note Type Treatment Note Next Visit Plan Continue working on BIG exercises. Begin BIG walking outside, work on buttoning/ unbottoning, and bed mobility.
--- NOTE | 2021-02-20 12:35 | PT.OTN ---
Current Diagnoses Parkinson's disease (02/20/21) Lumbago with sciatica, right side (02/20/21) Other abnormalities of gait and mobility (02/20/21) Physical Therapy Treatment Note PT-OP-A Visit Information Start: 02/10/21 10:31 Freq: Status: Active Protocol: Document 02/20/21 12:06 MA (Rec: 02/20/21 12:11 MA [id number]) Out-Patient Physical Therapy Visit Information Visit Information Visit Type Treatment Note Visit Start Time 11:00 Visit Stop Time 11:58 Total Visit Minutes 58 Visit Number 6 Number of PRODUCE INSPECTOR Visits 1 PT-OP-B Current Condition Start: 02/10/21 10:31 Freq: Status: Active Protocol: Document 02/10/21 11:00 AMB (Rec: 02/10/21 11:21 AMB [id number]) Current Condition History of Current Condition Onset Date 1+ year ago Current Complaints Parkinsons- stiffness History of Current Condition Diagnosed a year ago, sx probably started longer than that. Still working at [email or web address] in the [facility], notes R leg pain at the end of her shift. Attends with soon to be daughter in law Maite. Lives in a split level with son, RENUKA and 2 grandsons, her works away from home for multiple weeks at a time. States stairs are not a problem. 1 fall in the last 6 months: Tripped in the dark when feeding the ducks was icy , no other falls, does have blisters on top of toes from toes curling up, thinks that's why she's walking differently . Has questions about her medications. Reports recent onset weight loss, does have a hard time finding the time to eat with timing of meds and work. Is supposed to get MRI of pancreas because of weightloss hasn't happened yet . Still drives. Treatment Goals Patient/Caregiver Goals Getting dressed (takes a long time/stiffness). 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 Prior Functional Status Baseline Function- ADL's Independent Baseline Function- Mobility Independent Current Functional Impairments (Reported) Functional Limitations- ADL's Takes a long time to get dressed, do buttons. Personal Factors Other Personal Factors That May Effect Scoliosis, pt reported R Therapy/Recovery sciatica, hammer toes PT-OP-C Subjective Start: 02/10/21 10:31 Freq: Status: Active Protocol: Document 02/20/21 12:06 MA (Rec: 02/20/21 12:11 MA [id number]) OP-PT Subjective Patient Comments Patient Comments Pt states she has bad a rough couple days and called out of work last night. She thinks it 's just the heat. Daughter-in- law says they are working on her medication dosage still but have started tracking meals and pill taking times. PT-OP-E Functional Tests Start: 02/10/21 10:31 Freq: Status: Active Protocol: Document 02/10/21 11:00 AMB (Rec: 02/10/21 15:42 AMB [email or web address]) Functional Tests 6 Minute Walk Test Distance 1162 Device Used none Five Times Sit to Stand Test Score 11 PT-OP-G Mobility & Gait Start: 02/10/21 10:31 Freq: Status: Active Protocol: Document 02/10/21 11:00 AMB (Rec: 02/10/21 15:42 AMB [email or web address]) OP Mobility Evaluation Bed Mobility Rolling I Supine to and from Sit I Transfers Sit to Stand I OP Gait Assessment Comments Gait Comments No trunk rotation or arm swing , R foot tends to slap towards end of 6 minutes PT-OP-M Strength Start: 02/10/21 10:31 Freq: Status: Active Protocol: Document 02/10/21 11:00 AMB (Rec: 02/10/21 15:42 AMB [email or web address]) Hip Strength Hip Manual Muscle Testing Right Flexion (L2) 4- Good- Extension (S1) 4- Good- Abduction 4- Good- Comments low back pain with R MMT Left Flexion (L2) 4 Good Extension (S1) 4 Good Abduction 4 Good Knee Strength Knee Manual Muscle Testing Right Flexion (S2) 4 Good Extension (L3) 4 Good Left Flexion (S2) 4 Good Extension (L3) 4+ Good+ Ankle/Foot Strength Ankle and Foot Manual Muscle Testing Left Dorsiflexion (L4) 4 Good Plantarflexion (S1) 4+ Good+ Right Dorsiflexion (L4) 4- Good- Plantarflexion (S1) 4+ Good+ PT-OP-Q Treatments Start: 02/10/21 10:31 Freq: Status: Active Protocol: Document 02/20/21 12:06 MA (Rec: 02/20/21 12:11 MA [id number]) Gym Equipment Shuttle Balance Red Clips Comments WBOS, NBOS-with EO/EC Blue Clips Comments WBOS, NBOS, staggered stance Gait Training Gait Activity Stairs Description Lobby Stairs Device Used Single rail Distance/Duration 2x Treatment Focus BIG stepping Walking Description BIG walking Device Used none Surface smooth Distance/Duration 300 ft Treatment Focus big arm swings Comments able to dual task ( conversation) and maintain big walking Neuro Re-Education Treatment Other Activities Sit<>Stand Details standard height chair Reps/Duration x10 Comments 3 reps with airex mat under feet for increased balance challenge--very challenged Sideways Rock & Reach Details chair for balance Reps/Duration x10 each Fwd Rock & reach Details chair for balance Reps/Duration 10 Backwards Step & Reach Details chair for balance Reps/Duration 10 Sideways step & reach Details chair for balance Reps/Duration 10 Fwd Step & Reach Details chair for balance Reps/Duration 10 Side to Side Reps/Duration 10 Comments with finger flicks- modified for back pain Floor to Ceiling Details standard chair Reps/Duration 10 Comments with finger flicks PT-OP-T Assessment and Plan Start: 02/10/21 10:31 Freq: Status: Active Protocol: Document 02/20/21 12:06 MA (Rec: 02/20/21 12:11 MA [id number]) Physical Therapy Assessment Goals Three Impairment HEP Short Term Goal (STG) Kajal will be independent and consistent with a HEP for LSVT BIG. STG Duration 2 weeks Two Impairment ADLs Short Term Goal (STG) Kajal will improve her ability to dress so that she can easily get her right leg in her pant leg. STG Duration 2 weeks Traveling Sales Executive Goal (LTG) Kajal will move from sit to stand with good body mechanics and without back pain. LTG Duration 4 weeks One Impairment Gait Short Term Goal (STG) Kajal will ambulate with good trunk rotation and arm swing. STG Duration 2 weeks Traveling Sales Executive Goal (LTG) Kajal will increase her 6MWT distance to at least 1, 300 feet to meet norms for her age/gender. LTG Duration 4 weeks Assessment Summary Assessment Kajal needed frequent breaks today due to feeling too hot. She is able to complete BIG exercises in 27 minutes today. She is able to ascend/descend stairs reciprocally with single hand rail. When cued to turn during BIG walking, pt loses balance 2x needing Min A to avoid falling. She has no back pain during today's session. Physical Therapy Plan Frequency and Duration Frequency of Treatment 4x/Week Duration of Treatment 5 weeks Plan of Care Start Date 02/10/21 Plan of Care End Date 03/17/21 Therapeutic Interventions Therapeutic Interventions Balance Training,Gait Training ,Home Exercise Program,Manual Therapy,Neuromuscular Re- education,Self-Care/Home Management,Therapeutic Activities,Therapeutic Exercises Next Visit Focus/Plan Next Note Type Treatment Note Next Visit Plan Continue working on BIG exercises. Begin BIG walking outside, work on buttoning/ unbottoning, and bed mobility.
--- NOTE | 2021-02-22 13:49 | PT.OTN ---
Current Diagnoses Parkinson's disease (02/22/21) Lumbago with sciatica, right side (02/22/21) Other abnormalities of gait and mobility (02/22/21) Physical Therapy Treatment Note PT-OP-A Visit Information Start: 02/10/21 10:31 Freq: Status: Active Protocol: Document 02/22/21 13:41 MA (Rec: 02/22/21 13:49 MA [email or web address]) Out-Patient Physical Therapy Visit Information Visit Information Visit Type Treatment Note Visit Start Time 11:00 Visit Stop Time 11:55 Total Visit Minutes 55 Visit Number 7 Number of WARD SECRETARY Visits 2 PT-OP-B Current Condition Start: 02/10/21 10:31 Freq: Status: Active Protocol: Document 02/10/21 11:00 AMB (Rec: 02/10/21 11:21 AMB [id number]) Current Condition History of Current Condition Onset Date 1+ year ago Current Complaints Parkinsons- stiffness History of Current Condition Diagnosed a year ago, sx probably started longer than that. Still working at [employer] in the [facility], notes R leg pain at the end of her shift. Attends with soon to be daughter in law Maite. Lives in a split level with son, RENUKA and 2 grandsons, her works away from home for multiple weeks at a time. States stairs are not a problem. 1 fall in the last 6 months: Tripped in the dark when feeding the ducks was icy , no other falls, does have blisters on top of toes from toes curling up, thinks that's why she's walking differently . Has questions about her medications. Reports recent onset weight loss, does have a hard time finding the time to eat with timing of meds and work. Is supposed to get MRI of pancreas because of weightloss hasn't happened yet . Still drives. Treatment Goals Patient/Caregiver Goals Getting dressed (takes a long time/stiffness). 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 Prior Functional Status Baseline Function- ADL's Independent Baseline Function- Mobility Independent Current Functional Impairments (Reported) Functional Limitations- ADL's Takes a long time to get dressed, do buttons. Personal Factors Other Personal Factors That May Effect Scoliosis, pt reported R Therapy/Recovery sciatica, hammer toes PT-OP-C Subjective Start: 02/10/21 10:31 Freq: Status: Active Protocol: Document 02/22/21 13:41 MA (Rec: 02/22/21 13:49 MA [email or web address]) OP-PT Subjective Patient Comments Patient Comments Pt misunderstood automated text about appt times and missed yesterday's appt. They have rescheduled the missed appt for the end of the BIG program . PT-OP-E Functional Tests Start: 02/10/21 10:31 Freq: Status: Active Protocol: Document 02/10/21 11:00 AMB (Rec: 02/10/21 15:42 AMB [email or web address]) Functional Tests 6 Minute Walk Test Distance 1162 Device Used none Five Times Sit to Stand Test Score 11 PT-OP-G Mobility & Gait Start: 02/10/21 10:31 Freq: Status: Active Protocol: Document 02/10/21 11:00 AMB (Rec: 02/10/21 15:42 AMB [email or web address]) OP Mobility Evaluation Bed Mobility Rolling I Supine to and from Sit I Transfers Sit to Stand I OP Gait Assessment Comments Gait Comments No trunk rotation or arm swing , R foot tends to slap towards end of 6 minutes PT-OP-M Strength Start: 02/10/21 10:31 Freq: Status: Active Protocol: Document 02/10/21 11:00 AMB (Rec: 02/10/21 15:42 AMB [email or web address]) Hip Strength Hip Manual Muscle Testing Right Flexion (L2) 4- Good- Extension (S1) 4- Good- Abduction 4- Good- Comments low back pain with R MMT Left Flexion (L2) 4 Good Extension (S1) 4 Good Abduction 4 Good Knee Strength Knee Manual Muscle Testing Right Flexion (S2) 4 Good Extension (L3) 4 Good Left Flexion (S2) 4 Good Extension (L3) 4+ Good+ Ankle/Foot Strength Ankle and Foot Manual Muscle Testing Left Dorsiflexion (L4) 4 Good Plantarflexion (S1) 4+ Good+ Right Dorsiflexion (L4) 4- Good- Plantarflexion (S1) 4+ Good+ PT-OP-Q Treatments Start: 02/10/21 10:31 Freq: Status: Active Protocol: Document 02/22/21 13:41 MA (Rec: 02/22/21 13:49 MA [email or web address]) Gym Equipment Shuttle Balance Red Clips Comments fwd and lateral: WBOS, NBOS while tossing balloon Gait Training Gait Activity Walking Description BIG walking Device Used none Surface uneven terrain Distance/Duration 300 ft Treatment Focus big arm swings Comments able to dual task ( conversation) and maintain big walking on gravel, curbs, grass, and sidewalks Neuro Re-Education Treatment Balance Activities Tandem Equipment blue foam Reps/Duration 2 min Other Activities Sit<>Stand Details standard height chair Reps/Duration 2x10 Sideways Rock & Reach Details chair for balance Reps/Duration x10 each Fwd Rock & reach Details chair for balance Reps/Duration 10 Backwards Step & Reach Details chair for balance Reps/Duration 10 Sideways step & reach Details chair for balance Reps/Duration 10 Fwd Step & Reach Details chair for balance Reps/Duration 10 Side to Side Reps/Duration 10 Comments with finger flicks- modified for back pain Floor to Ceiling Details standard chair Reps/Duration 10 Comments with finger flicks PT-OP-T Assessment and Plan Start: 02/10/21 10:31 Freq: Status: Active Protocol: Document 02/22/21 13:41 MA (Rec: 02/22/21 13:49 MA [email or web address]) Physical Therapy Assessment Goals Three Impairment HEP Short Term Goal (STG) Kajal will be independent and consistent with a HEP for LSVT BIG. STG Duration 2 weeks Two Impairment ADLs Short Term Goal (STG) Kajal will improve her ability to dress so that she can easily get her right leg in her pant leg. STG Duration 2 weeks Senior Corporate Strategy Manager Goal (LTG) Kajal will move from sit to stand with good body mechanics and without back pain. LTG Duration 4 weeks One Impairment Gait Short Term Goal (STG) Kajal will ambulate with good trunk rotation and arm swing. STG Duration 2 weeks Senior Corporate Strategy Manager Goal (LTG) Kajal will increase her 6MWT distance to at least 1, 300 feet to meet norms for her age/gender. LTG Duration 4 weeks Assessment Summary Assessment Pt was able to complete BIG exercises in 25 minutes today. She enjoys the sit<>stand exercise stating I feel energized after it. Worked on pt's balance with red clips on shuttle balance with pt having increased difficulty today having to move to hit balloon and maintain balance. Her gait has improved and she takes bigger steps and has started swinging her arms more at home according to her [id number]. Physical Therapy Plan Frequency and Duration Frequency of Treatment 4x/Week Duration of Treatment 5 weeks Plan of Care Start Date 02/10/21 Plan of Care End Date 03/17/21 Therapeutic Interventions Therapeutic Interventions Balance Training,Gait Training ,Home Exercise Program,Manual Therapy,Neuromuscular Re- education,Self-Care/Home Management,Therapeutic Activities,Therapeutic Exercises Next Visit Focus/Plan Next Note Type Treatment Note Next Visit Plan Continue working on BIG exercises. Begin BIG walking outside, work on buttoning/ unbottoning, and bed mobility.
--- NOTE | 2021-02-24 14:00 | PT.OTN ---
Current Diagnoses Parkinson's disease (02/24/21) Lumbago with sciatica, right side (02/24/21) Other abnormalities of gait and mobility (02/24/21) Physical Therapy Treatment Note PT-OP-A Visit Information Start: 02/10/21 10:31 Freq: Status: Active Protocol: Document 02/24/21 11:00 AMB (Rec: 02/24/21 11:51 AMB [id number]) Out-Patient Physical Therapy Visit Information Visit Information Visit Type Treatment Note Visit Start Time 11:00 Visit Stop Time 11:55 Total Visit Minutes 55 Visit Number 8 Number of CHEMIST INTERN Visits 0 PT-OP-B Current Condition Start: 02/10/21 10:31 Freq: Status: Active Protocol: Document 02/10/21 11:00 AMB (Rec: 02/10/21 11:21 AMB [id number]) Current Condition History of Current Condition Onset Date 1+ year ago Current Complaints Parkinsons- stiffness History of Current Condition Diagnosed a year ago, sx probably started longer than that. Still working at [employer] in the [facility], notes R leg pain at the end of her shift. Attends with soon to be daughter in law Maite. Lives in a split level with son, RENUKA and 2 grandsons, her works away from home for multiple weeks at a time. States stairs are not a problem. 1 fall in the last 6 months: Tripped in the dark when feeding the ducks was icy , no other falls, does have blisters on top of toes from toes curling up, thinks that's why she's walking differently . Has questions about her medications. Reports recent onset weight loss, does have a hard time finding the time to eat with timing of meds and work. Is supposed to get MRI of pancreas because of weightloss hasn't happened yet . Still drives. Treatment Goals Patient/Caregiver Goals Getting dressed (takes a long time/stiffness). 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 Prior Functional Status Baseline Function- ADL's Independent Baseline Function- Mobility Independent Current Functional Impairments (Reported) Functional Limitations- ADL's Takes a long time to get dressed, do buttons. Personal Factors Other Personal Factors That May Effect Scoliosis, pt reported R Therapy/Recovery sciatica, hammer toes PT-OP-C Subjective Start: 02/10/21 10:31 Freq: Status: Active Protocol: Document 02/24/21 11:00 AMB (Rec: 02/24/21 14:00 AMB [email or web address]) OP-PT Subjective Patient Comments Patient Comments Kajal reports she is pretty fatigued she has been really busy at work this week. PT-OP-E Functional Tests Start: 02/10/21 10:31 Freq: Status: Active Protocol: Document 02/10/21 11:00 AMB (Rec: 02/10/21 15:42 AMB [email or web address]) Functional Tests 6 Minute Walk Test Distance 1162 Device Used none Five Times Sit to Stand Test Score 11 PT-OP-G Mobility & Gait Start: 02/10/21 10:31 Freq: Status: Active Protocol: Document 02/10/21 11:00 AMB (Rec: 02/10/21 15:42 AMB [email or web address]) OP Mobility Evaluation Bed Mobility Rolling I Supine to and from Sit I Transfers Sit to Stand I OP Gait Assessment Comments Gait Comments No trunk rotation or arm swing , R foot tends to slap towards end of 6 minutes PT-OP-M Strength Start: 02/10/21 10:31 Freq: Status: Active Protocol: Document 02/10/21 11:00 AMB (Rec: 02/10/21 15:42 AMB [email or web address]) Hip Strength Hip Manual Muscle Testing Right Flexion (L2) 4- Good- Extension (S1) 4- Good- Abduction 4- Good- Comments low back pain with R MMT Left Flexion (L2) 4 Good Extension (S1) 4 Good Abduction 4 Good Knee Strength Knee Manual Muscle Testing Right Flexion (S2) 4 Good Extension (L3) 4 Good Left Flexion (S2) 4 Good Extension (L3) 4+ Good+ Ankle/Foot Strength Ankle and Foot Manual Muscle Testing Left Dorsiflexion (L4) 4 Good Plantarflexion (S1) 4+ Good+ Right Dorsiflexion (L4) 4- Good- Plantarflexion (S1) 4+ Good+ PT-OP-Q Treatments Start: 02/10/21 10:31 Freq: Status: Active Protocol: Document 02/24/21 11:00 AMB (Rec: 02/24/21 14:00 AMB [email or web address]) Therapeutic Activity Therapeutic Activity Handwriting Name check and signature Reps/Minutes 5 min Comments breaks for finger flicks Gait Training Gait Activity Stairs Description outdoor stairs Comments without railing 2, then landing then 6 x 2 Walking Description BIG walking Device Used none Surface uneven terrain Distance/Duration 300 ft Treatment Focus big arm swings Comments able to dual task ( conversation) and maintain big walking on gravel, curbs, grass, and sidewalks Neuro Re-Education Treatment Other Activities Sit<>Stand Details bench Reps/Duration 1x10 Comments focus on arms for forward lean Sideways Rock & Reach Details no UE support Reps/Duration x10 each Comments alternating sides Fwd Rock & reach Details no UE support Reps/Duration 10 Backwards Step & Reach Details chair for balance Reps/Duration 10 Sideways step & reach Details chair for balance Reps/Duration 10 Fwd Step & Reach Details chair for balance Reps/Duration 10 Side to Side Reps/Duration 10 Comments with finger flicks- modified for back pain Floor to Ceiling Details standard chair Reps/Duration 10 Comments with finger flicks PT-OP-T Assessment and Plan Start: 02/10/21 10:31 Freq: Status: Active Protocol: Document 02/24/21 11:00 AMB (Rec: 02/24/21 14:00 AMB [email or web address]) Physical Therapy Assessment Goals Three Impairment HEP Short Term Goal (STG) Kajal will be independent and consistent with a HEP for LSVT BIG. STG Duration 2 weeks Two Impairment ADLs Short Term Goal (STG) Kajal will improve her ability to dress so that she can easily get her right leg in her pant leg. STG Duration 2 weeks Integration Software Developer Goal (LTG) Kajal will move from sit to stand with good body mechanics and without back pain. LTG Duration 4 weeks One Impairment Gait Short Term Goal (STG) Kajal will ambulate with good trunk rotation and arm swing. STG Duration 2 weeks [facility] Goal (LTG) Kajal will increase her 6MWT distance to at least 1, 300 feet to meet norms for her age/gender. LTG Duration 4 weeks Assessment Summary Assessment Approximately half of exercises today were done outside due to pt feeling better with fresh air. Gait is improving, handwriting was more challenged by check writing -having to have handwriting small to fit in box- than when she can write as big as possible. Physical Therapy Plan Next Visit Focus/Plan Next Note Type Treatment Note Next Visit Plan Can continue outdoor exercises as tolerated, working on decreasing need for UE support as long as amplitude is improved.
--- NOTE | 2021-02-28 13:33 | PT.OTN ---
Current Diagnoses Parkinson's disease (02/28/21) Lumbago with sciatica, right side (02/28/21) Other abnormalities of gait and mobility (02/28/21) Physical Therapy Treatment Note PT-OP-A Visit Information Start: 02/10/21 10:31 Freq: Status: Active Protocol: Document 02/28/21 11:00 AMB (Rec: 02/28/21 13:33 AMB [email or web address]) Out-Patient Physical Therapy Visit Information Visit Information Visit Type Treatment Note Visit Start Time 11:00 Visit Stop Time 12:00 Total Visit Minutes 60 Visit Number 9 PT-OP-B Current Condition Start: 02/10/21 10:31 Freq: Status: Active Protocol: Document 02/10/21 11:00 AMB (Rec: 02/10/21 11:21 AMB [id number]) Current Condition History of Current Condition Onset Date 1+ year ago Current Complaints Parkinsons- stiffness History of Current Condition Diagnosed a year ago, sx probably started longer than that. Still working at [employer] in the [facility], notes R leg pain at the end of her shift. Attends with soon to be daughter in law Maite. Lives in a split level with son, RENUKA and 2 grandsons, her works away from home for multiple weeks at a time. States stairs are not a problem. 1 fall in the last 6 months: Tripped in the dark when feeding the ducks was icy , no other falls, does have blisters on top of toes from toes curling up, thinks that's why she's walking differently . Has questions about her medications. Reports recent onset weight loss, does have a hard time finding the time to eat with timing of meds and work. Is supposed to get MRI of pancreas because of weightloss hasn't happened yet . Still drives. Treatment Goals Patient/Caregiver Goals Getting dressed (takes a long time/stiffness). 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 Prior Functional Status Baseline Function- ADL's Independent Baseline Function- Mobility Independent Current Functional Impairments (Reported) Functional Limitations- ADL's Takes a long time to get dressed, do buttons. Personal Factors Other Personal Factors That May Effect Scoliosis, pt reported R Therapy/Recovery sciatica, hammer toes PT-OP-C Subjective Start: 02/10/21 10:31 Freq: Status: Active Protocol: Document 02/28/21 11:00 AMB (Rec: 02/28/21 13:33 AMB [email or web address]) OP-PT Subjective Patient Comments Patient Comments Kajal walked over grass in the evening after the fireworks and was glad her son and DIL were there, but did not stumble or notice any real difficulty. She is continuing to have difficulty pulling on the seatbelt. PT-OP-E Functional Tests Start: 02/10/21 10:31 Freq: Status: Active Protocol: Document 02/10/21 11:00 AMB (Rec: 02/10/21 15:42 AMB [email or web address]) Functional Tests 6 Minute Walk Test Distance 1162 Device Used none Five Times Sit to Stand Test Score 11 PT-OP-G Mobility & Gait Start: 02/10/21 10:31 Freq: Status: Active Protocol: Document 02/10/21 11:00 AMB (Rec: 02/10/21 15:42 AMB [email or web address]) OP Mobility Evaluation Bed Mobility Rolling I Supine to and from Sit I Transfers Sit to Stand I OP Gait Assessment Comments Gait Comments No trunk rotation or arm swing , R foot tends to slap towards end of 6 minutes PT-OP-M Strength Start: 02/10/21 10:31 Freq: Status: Active Protocol: Document 02/10/21 11:00 AMB (Rec: 02/10/21 15:42 AMB [email or web address]) Hip Strength Hip Manual Muscle Testing Right Flexion (L2) 4- Good- Extension (S1) 4- Good- Abduction 4- Good- Comments low back pain with R MMT Left Flexion (L2) 4 Good Extension (S1) 4 Good Abduction 4 Good Knee Strength Knee Manual Muscle Testing Right Flexion (S2) 4 Good Extension (L3) 4 Good Left Flexion (S2) 4 Good Extension (L3) 4+ Good+ Ankle/Foot Strength Ankle and Foot Manual Muscle Testing Left Dorsiflexion (L4) 4 Good Plantarflexion (S1) 4+ Good+ Right Dorsiflexion (L4) 4- Good- Plantarflexion (S1) 4+ Good+ PT-OP-Q Treatments Start: 02/10/21 10:31 Freq: Status: Active Protocol: Document 02/28/21 11:00 AMB (Rec: 02/28/21 13:33 AMB [email or web address]) Therapeutic Activity Therapeutic Activity 2 Name buttons Comments good unbuttoning, buttoning shirt button took 15 seconds 1 Name folding hand towel & pillow cases Reps/Minutes 5 min Gait Training Gait Activity Stairs Description outdoor stairs Comments without railing 2, then landing then 6 x 2 Walking Description BIG walking Device Used none Surface uneven terrain Distance/Duration 300 ft Treatment Focus big arm swings Comments able to dual task ( conversation) and maintain big walking on gravel, curbs, grass, and sidewalks Neuro Re-Education Treatment Other Activities Sit<>Stand Details bench Reps/Duration 1x10 Comments focus on arms for forward lean Sideways Rock & Reach Details no UE support Reps/Duration x10 each Comments alternating sides Fwd Rock & reach Details no UE support Reps/Duration 10 Backwards Step & Reach Details chair for balance Reps/Duration 10 Comments UE support needed Sideways step & reach Details no UE support- chair close by Reps/Duration 10 Fwd Step & Reach Details no UE support chair close by Reps/Duration 10 Side to Side Reps/Duration 10 Comments with finger flicks- modified for back pain Floor to Ceiling Details standard chair Reps/Duration 10 Comments with finger flicks PT-OP-T Assessment and Plan Start: 02/10/21 10:31 Freq: Status: Active Protocol: Document 02/28/21 11:00 AMB (Rec: 02/28/21 13:33 AMB [email or web address]) Physical Therapy Assessment Goals Three Impairment HEP Short Term Goal (STG) Kajal will be independent and consistent with a HEP for LSVT BIG. STG Duration 2 weeks Two Impairment ADLs Short Term Goal (STG) Kajal will improve her ability to dress so that she can easily get her right leg in her pant leg. STG Duration 2 weeks Chief Accounting Officer Goal (LTG) Kajal will move from sit to stand with good body mechanics and without back pain. LTG Duration 4 weeks One Impairment Gait Short Term Goal (STG) Kajal will ambulate with good trunk rotation and arm swing. STG Duration 2 weeks [facility] Goal (LTG) Kajal will increase her 6MWT distance to at least 1, 300 feet to meet norms for her age/gender. LTG Duration 4 weeks Assessment Summary Assessment Kajal did alright with less UE support today, but did encourage her to use UE support if she needs it and keep it close by. Will need to continue to work on seatbelt, buttoning seemed improved today. Physical Therapy Plan Next Visit Focus/Plan Next Note Type Progress Note Next Visit Plan Can continue outdoor exercises as tolerated, working on decreasing need for UE support as long as amplitude is improved.
--- NOTE | 2021-03-01 12:00 | PT.OTN ---
Current Diagnoses Parkinson's disease (03/01/21) Lumbago with sciatica, right side (03/01/21) Other abnormalities of gait and mobility (03/01/21) Physical Therapy Treatment Note PT-OP-A Visit Information Start: 02/10/21 10:31 Freq: Status: Active Protocol: Document 03/01/21 11:55 MA (Rec: 03/01/21 12:00 MA [email or web address]) Out-Patient Physical Therapy Visit Information Visit Information Visit Type Treatment Note Visit Start Time 11:00 Visit Stop Time 11:53 Total Visit Minutes 53 Visit Number 10 Number of BEHAVIORAL SCIENCES INSTRUCTOR Visits 1 PT-OP-B Current Condition Start: 02/10/21 10:31 Freq: Status: Active Protocol: Document 02/10/21 11:00 AMB (Rec: 02/10/21 11:21 AMB [email or web address]) Current Condition History of Current Condition Onset Date 1+ year ago Current Complaints Parkinsons- stiffness History of Current Condition Diagnosed a year ago, sx probably started longer than that. Still working at [employer] in the [facility], notes R leg pain at the end of her shift. Attends with soon to be daughter in law Maite. Lives in a split level with son, RENUKA and 2 grandsons, her works away from home for multiple weeks at a time. States stairs are not a problem. 1 fall in the last 6 months: Tripped in the dark when feeding the ducks was icy , no other falls, does have blisters on top of toes from toes curling up, thinks that's why she's walking differently . Has questions about her medications. Reports recent onset weight loss, does have a hard time finding the time to eat with timing of meds and work. Is supposed to get MRI of pancreas because of weightloss hasn't happened yet . Still drives. Treatment Goals Patient/Caregiver Goals Getting dressed (takes a long time/stiffness). 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 Prior Functional Status Baseline Function- ADL's Independent Baseline Function- Mobility Independent Current Functional Impairments (Reported) Functional Limitations- ADL's Takes a long time to get dressed, do buttons. Personal Factors Other Personal Factors That May Effect Scoliosis, pt reported R Therapy/Recovery sciatica, hammer toes PT-OP-C Subjective Start: 02/10/21 10:31 Freq: Status: Active Protocol: Document 03/01/21 11:55 MA (Rec: 03/01/21 12:00 MA [email or web address]) OP-PT Subjective Patient Comments Patient Comments Kajal feels she is moving much better outside on grass and at work since starting BIG program PT-OP-E Functional Tests Start: 02/10/21 10:31 Freq: Status: Active Protocol: Document 02/10/21 11:00 AMB (Rec: 02/10/21 15:42 AMB [email or web address]) Functional Tests 6 Minute Walk Test Distance 1162 Device Used none Five Times Sit to Stand Test Score 11 PT-OP-G Mobility & Gait Start: 02/10/21 10:31 Freq: Status: Active Protocol: Document 02/10/21 11:00 AMB (Rec: 02/10/21 15:42 AMB [email or web address]) OP Mobility Evaluation Bed Mobility Rolling I Supine to and from Sit I Transfers Sit to Stand I OP Gait Assessment Comments Gait Comments No trunk rotation or arm swing , R foot tends to slap towards end of 6 minutes PT-OP-M Strength Start: 02/10/21 10:31 Freq: Status: Active Protocol: Document 02/10/21 11:00 AMB (Rec: 02/10/21 15:42 AMB [email or web address]) Hip Strength Hip Manual Muscle Testing Right Flexion (L2) 4- Good- Extension (S1) 4- Good- Abduction 4- Good- Comments low back pain with R MMT Left Flexion (L2) 4 Good Extension (S1) 4 Good Abduction 4 Good Knee Strength Knee Manual Muscle Testing Right Flexion (S2) 4 Good Extension (L3) 4 Good Left Flexion (S2) 4 Good Extension (L3) 4+ Good+ Ankle/Foot Strength Ankle and Foot Manual Muscle Testing Left Dorsiflexion (L4) 4 Good Plantarflexion (S1) 4+ Good+ Right Dorsiflexion (L4) 4- Good- Plantarflexion (S1) 4+ Good+ PT-OP-Q Treatments Start: 02/10/21 10:31 Freq: Status: Active Protocol: Document 03/01/21 11:55 MA (Rec: 03/01/21 12:00 MA [email or web address]) Therapeutic Activity Therapeutic Activity 1 Name folding hand towel & pillow cases Reps/Minutes 5 min Gait Training Gait Activity Stairs Description Lobby Stairs Level of Assistance rail prn for descent Distance/Duration 2x Treatment Focus rail prn Walking Description BIG walking Device Used none Surface uneven terrain Distance/Duration 300 ft Treatment Focus big arm swings Comments able to dual task ( conversation) and maintain big walking on gravel, curbs, grass, and sidewalks Neuro Re-Education Treatment Other Activities Sit<>Stand Details bench Reps/Duration 2x10 Comments focus on arms for forward lean Sideways Rock & Reach Details no UE support Reps/Duration x10 each Comments alternating sides Fwd Rock & reach Details no UE support Reps/Duration 10 Backwards Step & Reach Details chair for balance Reps/Duration 10 Comments UE support needed Sideways step & reach Details no UE support- chair close by Reps/Duration 10 Fwd Step & Reach Details no UE support chair close by Reps/Duration 10 Side to Side Reps/Duration 10 Comments with finger flicks- modified for back pain Floor to Ceiling Details standard chair Reps/Duration 10 Comments with finger flicks PT-OP-T Assessment and Plan Start: 02/10/21 10:31 Freq: Status: Active Protocol: Document 03/01/21 11:55 MA (Rec: 03/01/21 12:00 MA [email or web address]) Physical Therapy Assessment Goals Three Impairment HEP Short Term Goal (STG) Kajal will be independent and consistent with a HEP for LSVT BIG. STG Duration 2 weeks Two Impairment ADLs Short Term Goal (STG) Kajal will improve her ability to dress so that she can easily get her right leg in her pant leg. STG Duration 2 weeks Taxonomist Goal (LTG) Kajal will move from sit to stand with good body mechanics and without back pain. LTG Duration 4 weeks One Impairment Gait Short Term Goal (STG) Kajal will ambulate with good trunk rotation and arm swing. STG Duration 2 weeks Taxonomist Goal (LTG) Kajal will increase her 6MWT distance to at least 1, 300 feet to meet norms for her age/gender. LTG Duration 4 weeks Assessment Summary Assessment Kajal was able to complete BIG exercises in 22 minutes today showing great improvement in movement velocity and amplitude. She continues to need verbal and manual cues for LE movement during side to side exercise seated in chair but can properly move LEs during standing twist. Physical Therapy Plan Frequency and Duration Frequency of Treatment 4x/Week Duration of Treatment 5 weeks Plan of Care Start Date 02/10/21 Plan of Care End Date 03/17/21 Therapeutic Interventions Therapeutic Interventions Balance Training,Gait Training ,Home Exercise Program,Manual Therapy,Neuromuscular Re- education,Self-Care/Home Management,Therapeutic Activities,Therapeutic Exercises Next Visit Focus/Plan Next Note Type Progress Note Next Visit Plan Can continue outdoor exercises as tolerated, working on decreasing need for UE support as long as amplitude is improved.
--- NOTE | 2021-03-03 14:13 | PT.OTN ---
Current Diagnoses Parkinson's disease (03/03/21) Lumbago with sciatica, right side (03/03/21) Other abnormalities of gait and mobility (03/03/21) Physical Therapy Treatment Note PT-OP-A Visit Information Start: 02/10/21 10:31 Freq: Status: Active Protocol: Document 03/03/21 11:00 AMB (Rec: 03/03/21 14:13 AMB [email or web address]) Out-Patient Physical Therapy Visit Information Visit Information Visit Type Progress Note Visit Start Time 11:00 Visit Stop Time 12:00 Total Visit Minutes 60 Visit Number 11 Number of NIP WRAPPER Visits 0 PT-OP-B Current Condition Start: 02/10/21 10:31 Freq: Status: Active Protocol: Document 02/10/21 11:00 AMB (Rec: 02/10/21 11:21 AMB [id number]) Current Condition History of Current Condition Onset Date 1+ year ago Current Complaints Parkinsons- stiffness History of Current Condition Diagnosed a year ago, sx probably started longer than that. Still working at [employer] in the [facility], notes R leg pain at the end of her shift. Attends with soon to be daughter in law Maite. Lives in a split level with son, RENUKA and 2 grandsons, her works away from home for multiple weeks at a time. States stairs are not a problem. 1 fall in the last 6 months: Tripped in the dark when feeding the ducks was icy , no other falls, does have blisters on top of toes from toes curling up, thinks that's why she's walking differently . Has questions about her medications. Reports recent onset weight loss, does have a hard time finding the time to eat with timing of meds and work. Is supposed to get MRI of pancreas because of weightloss hasn't happened yet . Still drives. Treatment Goals Patient/Caregiver Goals Getting dressed (takes a long time/stiffness). 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 Prior Functional Status Baseline Function- ADL's Independent Baseline Function- Mobility Independent Current Functional Impairments (Reported) Functional Limitations- ADL's Takes a long time to get dressed, do buttons. Personal Factors Other Personal Factors That May Effect Scoliosis, pt reported R Therapy/Recovery sciatica, hammer toes PT-OP-C Subjective Start: 02/10/21 10:31 Freq: Status: Active Protocol: Document 03/03/21 11:00 AMB (Rec: 03/03/21 14:13 AMB [email or web address]) OP-PT Subjective Patient Comments Patient Comments Kajal notes back pain today , she says work has been busy and that is the reason for the increased back pain. PT-OP-E Functional Tests Start: 02/10/21 10:31 Freq: Status: Active Protocol: Document 02/10/21 11:00 AMB (Rec: 02/10/21 15:42 AMB [email or web address]) Functional Tests 6 Minute Walk Test Distance 1162 Device Used none Five Times Sit to Stand Test Score 11 PT-OP-G Mobility & Gait Start: 02/10/21 10:31 Freq: Status: Active Protocol: Document 02/10/21 11:00 AMB (Rec: 02/10/21 15:42 AMB [email or web address]) OP Mobility Evaluation Bed Mobility Rolling I Supine to and from Sit I Transfers Sit to Stand I OP Gait Assessment Comments Gait Comments No trunk rotation or arm swing , R foot tends to slap towards end of 6 minutes PT-OP-M Strength Start: 02/10/21 10:31 Freq: Status: Active Protocol: Document 02/10/21 11:00 AMB (Rec: 02/10/21 15:42 AMB [email or web address]) Hip Strength Hip Manual Muscle Testing Right Flexion (L2) 4- Good- Extension (S1) 4- Good- Abduction 4- Good- Comments low back pain with R MMT Left Flexion (L2) 4 Good Extension (S1) 4 Good Abduction 4 Good Knee Strength Knee Manual Muscle Testing Right Flexion (S2) 4 Good Extension (L3) 4 Good Left Flexion (S2) 4 Good Extension (L3) 4+ Good+ Ankle/Foot Strength Ankle and Foot Manual Muscle Testing Left Dorsiflexion (L4) 4 Good Plantarflexion (S1) 4+ Good+ Right Dorsiflexion (L4) 4- Good- Plantarflexion (S1) 4+ Good+ PT-OP-Q Treatments Start: 02/10/21 10:31 Freq: Status: Active Protocol: Document 03/03/21 11:00 AMB (Rec: 03/03/21 14:13 AMB [email or web address]) Therapeutic Exercises Sitting Exercises 1 Sitting Exercise Name theraputty yellow and red Comments pinching, gripping Gait Training Gait Activity Walking Description BIG walking Device Used none Surface uneven terrain Distance/Duration 1453 ft Treatment Focus big arm swings Comments able to dual task ( conversation) and maintain big walking on sidewalks Neuro Re-Education Treatment Other Activities Sit<>Stand Details bench Reps/Duration 2x10 Comments focus on arms for forward lean Sideways Rock & Reach Details chair for balance Reps/Duration x10 each Comments alternating sides Fwd Rock & reach Details chair for balance Reps/Duration 10 Backwards Step & Reach Details chair for balance Reps/Duration 10 Comments UE support needed Sideways step & reach Details chair for balance Reps/Duration 10 Fwd Step & Reach Details chair for balance Reps/Duration 10 Side to Side Reps/Duration 3 Comments with finger flicks- modified for back pain Floor to Ceiling Details standard chair Reps/Duration 10 Comments with finger flicks PT-OP-T Assessment and Plan Start: 02/10/21 10:31 Freq: Status: Active Protocol: Document 03/03/21 11:00 AMB (Rec: 03/03/21 14:13 AMB [email or web address]) Physical Therapy Assessment Goals Three Impairment HEP Short Term Goal (STG) Kajal will be independent and consistent with a HEP for LSVT BIG. STG Duration 2 weeks Two Impairment ADLs Short Term Goal (STG) Kajal will improve her ability to dress so that she can easily get her right leg in her pant leg. STG Duration 2 weeks Group Home Goal (LTG) Kajal will move from sit to stand with good body mechanics and without back pain. LTG Duration 4 weeks One Impairment Gait Short Term Goal (STG) Kajal will ambulate with good trunk rotation and arm swing. STG Duration 2 weeks Benefits Assistant Goal (LTG) Kajal will increase her 6MWT distance to at least 1, 300 feet to meet norms for her age/gender. LTG Duration MET Assessment Summary Assessment Pt had pain with seated rotation exercise, so will modify in the future. Her 6MWT improved significantly since eval. She continues to need cues to use her maximum amplitude, especially on days when she is having more pain. Physical Therapy Plan Frequency and Duration Frequency of Treatment 4x/Week Duration of Treatment 5 weeks Plan of Care Start Date 02/10/21 Plan of Care End Date 07/23/21 Therapeutic Interventions Therapeutic Interventions Balance Training,Gait Training ,Home Exercise Program,Manual Therapy,Neuromuscular Re- education,Self-Care/Home Management,Therapeutic Activities,Therapeutic Exercises Next Visit Focus/Plan Next Note Type Treatment Note Next Visit Plan Can continue outdoor exercises as tolerated, working on decreasing need for UE support as long as amplitude is improved.
--- NOTE | 2021-03-06 11:59 | PT.OTN ---
Current Diagnoses Parkinson's disease (03/06/21) Lumbago with sciatica, right side (03/06/21) Other abnormalities of gait and mobility (03/06/21) Physical Therapy Treatment Note PT-OP-A Visit Information Start: 02/10/21 10:31 Freq: Status: Active Protocol: Document 03/06/21 11:45 MA (Rec: 03/06/21 11:58 MA [id number]) Out-Patient Physical Therapy Visit Information Visit Information Visit Type Treatment Note Visit Start Time 11:00 Visit Stop Time 11:55 Total Visit Minutes 55 Visit Number 12 Number of WALL COVERING INSTALLER Visits 1 PT-OP-B Current Condition Start: 02/10/21 10:31 Freq: Status: Active Protocol: Document 02/10/21 11:00 AMB (Rec: 02/10/21 11:21 AMB [id number]) Current Condition History of Current Condition Onset Date 1+ year ago Current Complaints Parkinsons- stiffness History of Current Condition Diagnosed a year ago, sx probably started longer than that. Still working at [employer] in the [facility], notes R leg pain at the end of her shift. Attends with soon to be daughter in law Maite. Lives in a split level with son, RENUKA and 2 grandsons, her works away from home for multiple weeks at a time. States stairs are not a problem. 1 fall in the last 6 months: Tripped in the dark when feeding the ducks was icy , no other falls, does have blisters on top of toes from toes curling up, thinks that's why she's walking differently . Has questions about her medications. Reports recent onset weight loss, does have a hard time finding the time to eat with timing of meds and work. Is supposed to get MRI of pancreas because of weightloss hasn't happened yet . Still drives. Treatment Goals Patient/Caregiver Goals Getting dressed (takes a long time/stiffness). 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 Prior Functional Status Baseline Function- ADL's Independent Baseline Function- Mobility Independent Current Functional Impairments (Reported) Functional Limitations- ADL's Takes a long time to get dressed, do buttons. Personal Factors Other Personal Factors That May Effect Scoliosis, pt reported R Therapy/Recovery sciatica, hammer toes PT-OP-C Subjective Start: 02/10/21 10:31 Freq: Status: Active Protocol: Document 03/06/21 11:45 MA (Rec: 03/06/21 11:58 MA [id number]) OP-PT Subjective Patient Comments Patient Comments Kajal has noticed she moves better at work since starting BIG PT-OP-E Functional Tests Start: 02/10/21 10:31 Freq: Status: Active Protocol: Document 02/10/21 11:00 AMB (Rec: 02/10/21 15:42 AMB [email or web address]) Functional Tests 6 Minute Walk Test Distance 1162 Device Used none Five Times Sit to Stand Test Score 11 PT-OP-G Mobility & Gait Start: 02/10/21 10:31 Freq: Status: Active Protocol: Document 02/10/21 11:00 AMB (Rec: 02/10/21 15:42 AMB [email or web address]) OP Mobility Evaluation Bed Mobility Rolling I Supine to and from Sit I Transfers Sit to Stand I OP Gait Assessment Comments Gait Comments No trunk rotation or arm swing , R foot tends to slap towards end of 6 minutes PT-OP-M Strength Start: 02/10/21 10:31 Freq: Status: Active Protocol: Document 02/10/21 11:00 AMB (Rec: 02/10/21 15:42 AMB [email or web address]) Hip Strength Hip Manual Muscle Testing Right Flexion (L2) 4- Good- Extension (S1) 4- Good- Abduction 4- Good- Comments low back pain with R MMT Left Flexion (L2) 4 Good Extension (S1) 4 Good Abduction 4 Good Knee Strength Knee Manual Muscle Testing Right Flexion (S2) 4 Good Extension (L3) 4 Good Left Flexion (S2) 4 Good Extension (L3) 4+ Good+ Ankle/Foot Strength Ankle and Foot Manual Muscle Testing Left Dorsiflexion (L4) 4 Good Plantarflexion (S1) 4+ Good+ Right Dorsiflexion (L4) 4- Good- Plantarflexion (S1) 4+ Good+ PT-OP-Q Treatments Start: 02/10/21 10:31 Freq: Status: Active Protocol: Document 03/06/21 11:45 MA (Rec: 03/06/21 11:58 MA [id number]) Gait Training Gait Activity Obstacle Course Level of Assistance rail prn Distance/Duration 6x10 ft Comments over hurdles, on boxes, and blue foam Walking Description BIG walking Device Used none Surface uneven terrain Distance/Duration 1453 ft Treatment Focus big arm swings Comments able to dual task ( conversation) and maintain big walking on sidewalks Neuro Re-Education Treatment Other Activities Sit<>Stand Details bench Reps/Duration 2x10 Comments focus on arms for forward lean Sideways Rock & Reach Details chair for balance Reps/Duration x10 each Comments alternating sides Fwd Rock & reach Details chair for balance Reps/Duration 10 Backwards Step & Reach Details chair for balance Reps/Duration 10 Comments UE support needed Sideways step & reach Details chair for balance Reps/Duration 10 Fwd Step & Reach Details chair for balance Reps/Duration 10 Side to Side Reps/Duration 3 Comments with finger flicks- modified for back pain Floor to Ceiling Details standard chair Reps/Duration 10 Comments with finger flicks PT-OP-T Assessment and Plan Start: 02/10/21 10:31 Freq: Status: Active Protocol: Document 03/06/21 11:45 MA (Rec: 03/06/21 11:58 MA [id number]) Physical Therapy Assessment Goals Three Impairment HEP Short Term Goal (STG) Kajal will be independent and consistent with a HEP for LSVT BIG. STG Duration 2 weeks Two Impairment ADLs Short Term Goal (STG) Kajal will improve her ability to dress so that she can easily get her right leg in her pant leg. STG Duration 2 weeks Transferrer Goal (LTG) Kajal will move from sit to stand with good body mechanics and without back pain. LTG Duration 4 weeks One Impairment Gait Short Term Goal (STG) Kajal will ambulate with good trunk rotation and arm swing. STG Duration 2 weeks Transferrer Goal (LTG) Kajal will increase her 6MWT distance to at least 1, 300 feet to meet norms for her age/gender. LTG Duration MET Assessment Summary Assessment Kajal is moving better during gait and no longer leans laterally when turning corners and does not show hesitation when crossing thresholds between carpet and tile in gym. She as able to step over 6 hurdles only catching foot on / hurdles. Pt struggles when alternating her BIG exercises and shows some minor LOB throughout exercises but uses back of chair prn to catch balance. She has no back pain today during session. Physical Therapy Plan Frequency and Duration Frequency of Treatment 4x/Week Duration of Treatment 5 weeks Plan of Care Start Date 02/10/21 Plan of Care End Date 03/17/21 Therapeutic Interventions Therapeutic Interventions Balance Training,Gait Training ,Home Exercise Program,Manual Therapy,Neuromuscular Re- education,Self-Care/Home Management,Therapeutic Activities,Therapeutic Exercises Next Visit Focus/Plan Next Note Type Treatment Note Next Visit Plan Can continue outdoor exercises as tolerated, working on decreasing need for UE support as long as amplitude is improved.
--- NOTE | 2021-03-07 14:56 | PT.OTN ---
Current Diagnoses Parkinson's disease (03/07/21) Lumbago with sciatica, right side (03/07/21) Other abnormalities of gait and mobility (03/07/21) Physical Therapy Treatment Note PT-OP-A Visit Information Start: 02/10/21 10:31 Freq: Status: Active Protocol: Document 03/07/21 11:00 AMB (Rec: 03/07/21 11:39 AMB [id number]) Out-Patient Physical Therapy Visit Information Visit Information Visit Type Treatment Note Visit Start Time 11:00 Visit Stop Time 12:00 Total Visit Minutes 60 Visit Number 13 Number of STEAM DRIER TENDER Visits 0 PT-OP-B Current Condition Start: 02/10/21 10:31 Freq: Status: Active Protocol: Document 02/10/21 11:00 AMB (Rec: 02/10/21 11:21 AMB [id number]) Current Condition History of Current Condition Onset Date 1+ year ago Current Complaints Parkinsons- stiffness History of Current Condition Diagnosed a year ago, sx probably started longer than that. Still working at [employer] in the [facility], notes R leg pain at the end of her shift. Attends with soon to be daughter in law Maite. Lives in a split level with son, RENUKA and 2 grandsons, her works away from home for multiple weeks at a time. States stairs are not a problem. 1 fall in the last 6 months: Tripped in the dark when feeding the ducks was icy , no other falls, does have blisters on top of toes from toes curling up, thinks that's why she's walking differently . Has questions about her medications. Reports recent onset weight loss, does have a hard time finding the time to eat with timing of meds and work. Is supposed to get MRI of pancreas because of weightloss hasn't happened yet . Still drives. Treatment Goals Patient/Caregiver Goals Getting dressed (takes a long time/stiffness). 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 Prior Functional Status Baseline Function- ADL's Independent Baseline Function- Mobility Independent Current Functional Impairments (Reported) Functional Limitations- ADL's Takes a long time to get dressed, do buttons. Personal Factors Other Personal Factors That May Effect Scoliosis, pt reported R Therapy/Recovery sciatica, hammer toes PT-OP-C Subjective Start: 02/10/21 10:31 Freq: Status: Active Protocol: Document 03/07/21 11:00 AMB (Rec: 03/07/21 14:56 AMB [email or web address]) OP-PT Subjective Patient Comments Patient Comments Overall doing well, feeling a bit more flexible, still weak in hands, exercises are going well, no back pain today. PT-OP-E Functional Tests Start: 02/10/21 10:31 Freq: Status: Active Protocol: Document 02/10/21 11:00 AMB (Rec: 02/10/21 15:42 AMB [email or web address]) Functional Tests 6 Minute Walk Test Distance 1162 Device Used none Five Times Sit to Stand Test Score 11 PT-OP-G Mobility & Gait Start: 02/10/21 10:31 Freq: Status: Active Protocol: Document 02/10/21 11:00 AMB (Rec: 02/10/21 15:42 AMB [email or web address]) OP Mobility Evaluation Bed Mobility Rolling I Supine to and from Sit I Transfers Sit to Stand I OP Gait Assessment Comments Gait Comments No trunk rotation or arm swing , R foot tends to slap towards end of 6 minutes PT-OP-M Strength Start: 02/10/21 10:31 Freq: Status: Active Protocol: Document 02/10/21 11:00 AMB (Rec: 02/10/21 15:42 AMB [email or web address]) Hip Strength Hip Manual Muscle Testing Right Flexion (L2) 4- Good- Extension (S1) 4- Good- Abduction 4- Good- Comments low back pain with R MMT Left Flexion (L2) 4 Good Extension (S1) 4 Good Abduction 4 Good Knee Strength Knee Manual Muscle Testing Right Flexion (S2) 4 Good Extension (L3) 4 Good Left Flexion (S2) 4 Good Extension (L3) 4+ Good+ Ankle/Foot Strength Ankle and Foot Manual Muscle Testing Left Dorsiflexion (L4) 4 Good Plantarflexion (S1) 4+ Good+ Right Dorsiflexion (L4) 4- Good- Plantarflexion (S1) 4+ Good+ PT-OP-Q Treatments Start: 02/10/21 10:31 Freq: Status: Active Protocol: Document 03/07/21 11:00 AMB (Rec: 03/07/21 14:56 AMB [email or web address]) Therapeutic Activity Therapeutic Activity 1 Name folding hand towel & pillow cases Reps/Minutes 5 min Handwriting Name check and signature Reps/Minutes 5 min Comments breaks for finger flicks Gait Training Gait Activity Walking Description BIG walking Device Used none Surface uneven terrain Distance/Duration 600 ft Treatment Focus big arm swings Comments able to dual task ( conversation) and maintain big walking on sidewalks, stairs, curbs Neuro Re-Education Treatment Other Activities Sit<>Stand Details chair Reps/Duration 2x10 Comments focus on arms for forward lean Sideways Rock & Reach Details no UE support Reps/Duration x10 each Comments alternating sides Fwd Rock & reach Details no UE support Reps/Duration 10 Backwards Step & Reach Details chair for balance Reps/Duration 10 Comments UE support needed Sideways step & reach Details chair for balance Reps/Duration 10 Fwd Step & Reach Details no UE support Reps/Duration 10 Side to Side Reps/Duration 10 Comments with finger flicks- modified for back pain Floor to Ceiling Details standard chair Reps/Duration 10 Comments with finger flicks PT-OP-T Assessment and Plan Start: 02/10/21 10:31 Freq: Status: Active Protocol: Document 03/07/21 11:00 AMB (Rec: 03/07/21 14:56 AMB [email or web address]) Physical Therapy Assessment Goals Three Impairment HEP Short Term Goal (STG) Kajal will be independent and consistent with a HEP for LSVT BIG. STG Duration 2 weeks Two Impairment ADLs Short Term Goal (STG) Kajal will improve her ability to dress so that she can easily get her right leg in her pant leg. STG Duration 2 weeks [facility] Goal (LTG) Kajal will move from sit to stand with good body mechanics and without back pain. LTG Duration 4 weeks One Impairment Gait Short Term Goal (STG) Kajal will ambulate with good trunk rotation and arm swing. STG Duration 2 weeks [facility] Goal (LTG) Kajal will increase her 6MWT distance to at least 1, 300 feet to meet norms for her age/gender. LTG Duration MET Assessment Summary Assessment Kajal did well with less UE support, but does need cues to maintain amplitude. Handwriting and folding do appear to be improving. Physical Therapy Plan Next Visit Focus/Plan Next Note Type Treatment Note Next Visit Plan Can continue outdoor exercises as tolerated, working on decreasing need for UE support as long as amplitude is improved.
--- NOTE | 2021-03-08 11:57 | PT.OTN ---
Current Diagnoses Parkinson's disease (03/08/21) Lumbago with sciatica, right side (03/08/21) Other abnormalities of gait and mobility (03/08/21) Physical Therapy Treatment Note PT-OP-A Visit Information Start: 02/10/21 10:31 Freq: Status: Active Protocol: Document 03/08/21 11:43 MA (Rec: 03/08/21 11:53 MA [id number]) Out-Patient Physical Therapy Visit Information Visit Information Visit Type Treatment Note Visit Start Time 11:00 Visit Stop Time 11:55 Total Visit Minutes 55 Visit Number 14 Number of MANAGEMENT DEPARTMENT CHAIR Visits 1 PT-OP-B Current Condition Start: 02/10/21 10:31 Freq: Status: Active Protocol: Document 02/10/21 11:00 AMB (Rec: 02/10/21 11:21 AMB [id number]) Current Condition History of Current Condition Onset Date 1+ year ago Current Complaints Parkinsons- stiffness History of Current Condition Diagnosed a year ago, sx probably started longer than that. Still working at [employer] in the [facility], notes R leg pain at the end of her shift. Attends with soon to be daughter in law Maite. Lives in a split level with son, RENUKA and 2 grandsons, her works away from home for multiple weeks at a time. States stairs are not a problem. 1 fall in the last 6 months: Tripped in the dark when feeding the ducks was icy , no other falls, does have blisters on top of toes from toes curling up, thinks that's why she's walking differently . Has questions about her medications. Reports recent onset weight loss, does have a hard time finding the time to eat with timing of meds and work. Is supposed to get MRI of pancreas because of weightloss hasn't happened yet . Still drives. Treatment Goals Patient/Caregiver Goals Getting dressed (takes a long time/stiffness). 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 Prior Functional Status Baseline Function- ADL's Independent Baseline Function- Mobility Independent Current Functional Impairments (Reported) Functional Limitations- ADL's Takes a long time to get dressed, do buttons. Personal Factors Other Personal Factors That May Effect Scoliosis, pt reported R Therapy/Recovery sciatica, hammer toes PT-OP-C Subjective Start: 02/10/21 10:31 Freq: Status: Active Protocol: Document 03/08/21 11:43 MA (Rec: 03/08/21 11:53 MA [id number]) OP-PT Subjective Patient Comments Patient Comments Pt is feeling good about all her exercises PT-OP-E Functional Tests Start: 02/10/21 10:31 Freq: Status: Active Protocol: Document 02/10/21 11:00 AMB (Rec: 02/10/21 15:42 AMB [email or web address]) Functional Tests 6 Minute Walk Test Distance 1162 Device Used none Five Times Sit to Stand Test Score 11 PT-OP-G Mobility & Gait Start: 02/10/21 10:31 Freq: Status: Active Protocol: Document 02/10/21 11:00 AMB (Rec: 02/10/21 15:42 AMB [email or web address]) OP Mobility Evaluation Bed Mobility Rolling I Supine to and from Sit I Transfers Sit to Stand I OP Gait Assessment Comments Gait Comments No trunk rotation or arm swing , R foot tends to slap towards end of 6 minutes PT-OP-M Strength Start: 02/10/21 10:31 Freq: Status: Active Protocol: Document 02/10/21 11:00 AMB (Rec: 02/10/21 15:42 AMB [email or web address]) Hip Strength Hip Manual Muscle Testing Right Flexion (L2) 4- Good- Extension (S1) 4- Good- Abduction 4- Good- Comments low back pain with R MMT Left Flexion (L2) 4 Good Extension (S1) 4 Good Abduction 4 Good Knee Strength Knee Manual Muscle Testing Right Flexion (S2) 4 Good Extension (L3) 4 Good Left Flexion (S2) 4 Good Extension (L3) 4+ Good+ Ankle/Foot Strength Ankle and Foot Manual Muscle Testing Left Dorsiflexion (L4) 4 Good Plantarflexion (S1) 4+ Good+ Right Dorsiflexion (L4) 4- Good- Plantarflexion (S1) 4+ Good+ PT-OP-Q Treatments Start: 02/10/21 10:31 Freq: Status: Active Protocol: Document 03/08/21 11:43 MA (Rec: 03/08/21 11:53 MA [id number]) Therapeutic Activity Therapeutic Activity 1 Name folding hand towel & pillow cases Reps/Minutes 5 min Handwriting Name signature & sentences Reps/Minutes 5 min Comments breaks for finger flicks Gait Training Gait Activity Walking Description BIG walking Device Used none Surface uneven terrain Distance/Duration 600 ft Treatment Focus big arm swings Comments able to dual task ( conversation) and maintain big walking on sidewalks, stairs, curbs Neuro Re-Education Treatment Other Activities Sit<>Stand Details chair Reps/Duration 2x10 Comments focus on arms for forward lean Sideways Rock & Reach Details no UE support Reps/Duration x10 each Comments alternating sides Fwd Rock & reach Details no UE support Reps/Duration 10 Backwards Step & Reach Details chair for balance Reps/Duration 10 Comments UE support needed Sideways step & reach Details chair for balance Reps/Duration 10 Fwd Step & Reach Details no UE support Reps/Duration 10 Side to Side Reps/Duration 10 Comments with finger flicks- modified for back pain Floor to Ceiling Details standard chair Reps/Duration 10 Comments with finger flicks PT-OP-T Assessment and Plan Start: 02/10/21 10:31 Freq: Status: Active Protocol: Document 03/08/21 11:43 MA (Rec: 03/08/21 11:53 MA [id number]) Physical Therapy Assessment Goals Three Impairment HEP Short Term Goal (STG) Kajal will be independent and consistent with a HEP for LSVT BIG. STG Duration 2 weeks Two Impairment ADLs Short Term Goal (STG) Kajal will improve her ability to dress so that she can easily get her right leg in her pant leg. STG Duration 2 weeks Professional Services Manager Goal (LTG) Kajal will move from sit to stand with good body mechanics and without back pain. LTG Duration 4 weeks One Impairment Gait Short Term Goal (STG) Kajal will ambulate with good trunk rotation and arm swing. STG Duration 2 weeks Retirement Goal (LTG) Kajal will increase her 6MWT distance to at least 1, 300 feet to meet norms for her age/gender. LTG Duration MET Assessment Summary Assessment Kajal did excellent alternating sides during BIG exercises today and was able to do all exercises without holding onto chair back for balance. She has improved her endurance and can walk for 10 minutes outside on uneven terrain before c/o of fatigue. As she fatigues she needs more frequent cues for amplitude with her arm swings. Physical Therapy Plan Frequency and Duration Frequency of Treatment 4x/Week Duration of Treatment 5 weeks Plan of Care Start Date 02/10/21 Plan of Care End Date 03/17/21 Therapeutic Interventions Therapeutic Interventions Balance Training,Gait Training ,Home Exercise Program,Manual Therapy,Neuromuscular Re- education,Self-Care/Home Management,Therapeutic Activities,Therapeutic Exercises Next Visit Focus/Plan Next Note Type Treatment Note Next Visit Plan Work on balance after BIG exercises Can continue outdoor exercises as tolerated, working on decreasing need for UE support as long as amplitude is improved.
--- NOTE | 2021-03-10 14:57 | PT.OTN ---
Current Diagnoses Parkinson's disease (03/10/21) Lumbago with sciatica, right side (03/10/21) Other abnormalities of gait and mobility (03/10/21) Physical Therapy Treatment Note PT-OP-A Visit Information Start: 02/10/21 10:31 Freq: Status: Active Protocol: Document 03/10/21 11:00 AMB (Rec: 03/10/21 14:57 AMB [email or web address]) Out-Patient Physical Therapy Visit Information Visit Information Visit Type Treatment Note Visit Start Time 11:00 Visit Stop Time 11:55 Total Visit Minutes 55 Visit Number 15 PT-OP-B Current Condition Start: 02/10/21 10:31 Freq: Status: Active Protocol: Document 02/10/21 11:00 AMB (Rec: 02/10/21 11:21 AMB [id number]) Current Condition History of Current Condition Onset Date 1+ year ago Current Complaints Parkinsons- stiffness History of Current Condition Diagnosed a year ago, sx probably started longer than that. Still working at [employer] in the [facility], notes R leg pain at the end of her shift. Attends with soon to be daughter in law Maite. Lives in a split level with son, RENUKA and 2 grandsons, her works away from home for multiple weeks at a time. States stairs are not a problem. 1 fall in the last 6 months: Tripped in the dark when feeding the ducks was icy , no other falls, does have blisters on top of toes from toes curling up, thinks that's why she's walking differently . Has questions about her medications. Reports recent onset weight loss, does have a hard time finding the time to eat with timing of meds and work. Is supposed to get MRI of pancreas because of weightloss hasn't happened yet . Still drives. Treatment Goals Patient/Caregiver Goals Getting dressed (takes a long time/stiffness). 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 Prior Functional Status Baseline Function- ADL's Independent Baseline Function- Mobility Independent Current Functional Impairments (Reported) Functional Limitations- ADL's Takes a long time to get dressed, do buttons. Personal Factors Other Personal Factors That May Effect Scoliosis, pt reported R Therapy/Recovery sciatica, hammer toes PT-OP-C Subjective Start: 02/10/21 10:31 Freq: Status: Active Protocol: Document 03/10/21 11:00 AMB (Rec: 03/10/21 14:57 AMB [email or web address]) OP-PT Subjective Patient Comments Patient Comments Pt states she is doing well with her functional activities , not having too much difficulty with handwriting, buttoning is still a bit challenging. PT-OP-E Functional Tests Start: 02/10/21 10:31 Freq: Status: Active Protocol: Document 02/10/21 11:00 AMB (Rec: 02/10/21 15:42 AMB [email or web address]) Functional Tests 6 Minute Walk Test Distance 1162 Device Used none Five Times Sit to Stand Test Score 11 PT-OP-G Mobility & Gait Start: 02/10/21 10:31 Freq: Status: Active Protocol: Document 02/10/21 11:00 AMB (Rec: 02/10/21 15:42 AMB [email or web address]) OP Mobility Evaluation Bed Mobility Rolling I Supine to and from Sit I Transfers Sit to Stand I OP Gait Assessment Comments Gait Comments No trunk rotation or arm swing , R foot tends to slap towards end of 6 minutes PT-OP-M Strength Start: 02/10/21 10:31 Freq: Status: Active Protocol: Document 02/10/21 11:00 AMB (Rec: 02/10/21 15:42 AMB [email or web address]) Hip Strength Hip Manual Muscle Testing Right Flexion (L2) 4- Good- Extension (S1) 4- Good- Abduction 4- Good- Comments low back pain with R MMT Left Flexion (L2) 4 Good Extension (S1) 4 Good Abduction 4 Good Knee Strength Knee Manual Muscle Testing Right Flexion (S2) 4 Good Extension (L3) 4 Good Left Flexion (S2) 4 Good Extension (L3) 4+ Good+ Ankle/Foot Strength Ankle and Foot Manual Muscle Testing Left Dorsiflexion (L4) 4 Good Plantarflexion (S1) 4+ Good+ Right Dorsiflexion (L4) 4- Good- Plantarflexion (S1) 4+ Good+ PT-OP-Q Treatments Start: 02/10/21 10:31 Freq: Status: Active Protocol: Document 03/10/21 11:00 AMB (Rec: 03/10/21 14:57 AMB [email or web address]) Therapeutic Exercises Standing Exercises 1 Standing Exercise Name calf stretch Reps/Minutes 30x3 Gait Training Gait Activity Obstacle Course Distance/Duration 6x10 ft Comments over hurdles, forward and lateral- lateral significantly more challenging Stairs Comments tapping alternating without UE support Walking Description BIG walking Device Used none Surface uneven terrain Distance/Duration 600 ft Treatment Focus big arm swings Comments able to dual task ( conversation) and maintain big walking on sidewalks, stairs, curbs Neuro Re-Education Treatment Other Activities Sit<>Stand Details chair Reps/Duration 2x10 Comments focus on arms for forward lean Sideways Rock & Reach Details no UE support Reps/Duration x10 each Comments alternating sides Fwd Rock & reach Details no UE support Reps/Duration 10 Backwards Step & Reach Details no UE support Reps/Duration 10 Comments no UE support Sideways step & reach Details chair for balance Reps/Duration 10 Fwd Step & Reach Details no UE support Reps/Duration 10 Side to Side Reps/Duration 10 Comments with finger flicks- modified for back pain Floor to Ceiling Details standard chair Reps/Duration 10 Comments with finger flicks PT-OP-T Assessment and Plan Start: 02/10/21 10:31 Freq: Status: Active Protocol: Document 03/10/21 11:00 AMB (Rec: 03/10/21 14:57 AMB [email or web address]) Physical Therapy Assessment Goals Three Impairment HEP Short Term Goal (STG) Kajal will be independent and consistent with a HEP for LSVT BIG. STG Duration 2 weeks Two Impairment ADLs Short Term Goal (STG) Kajal will improve her ability to dress so that she can easily get her right leg in her pant leg. STG Duration 2 weeks Licensed Prosthetist/Orthotist Goal (LTG) Kajal will move from sit to stand with good body mechanics and without back pain. LTG Duration 4 weeks One Impairment Gait Short Term Goal (STG) Kajal will ambulate with good trunk rotation and arm swing. STG Duration 2 weeks Longterm Goal (LTG) Kajal will increase her 6MWT distance to at least 1, 300 feet to meet norms for her age/gender. LTG Duration MET Assessment Summary Assessment Yvonne did all exercises without needing UE support, but was challenged with keeping her amplitude up, especially with the backwards step. She was especially challenged by sidestepping over hurdles today. Physical Therapy Plan Next Visit Focus/Plan Next Note Type Treatment Note Next Visit Plan Work on balance after BIG exercises Can continue outdoor exercises as tolerated, working on decreasing need for UE support as long as amplitude is improved.
--- NOTE | 2021-03-28 15:42 | PT.OTN ---
Current Diagnoses Parkinson's disease (03/28/21) Lumbago with sciatica, right side (03/28/21) Other abnormalities of gait and mobility (03/28/21) Physical Therapy Treatment Note PT-OP-A Visit Information Start: 02/10/21 10:31 Freq: Status: Active Protocol: Document 03/28/21 11:00 AMB (Rec: 03/28/21 15:41 AMB [email or web address]) Out-Patient Physical Therapy Visit Information Visit Information Visit Type Progress Note Visit Start Time 11:00 Visit Stop Time 12:00 Total Visit Minutes 60 Visit Number 16 PT-OP-B Current Condition Start: 02/10/21 10:31 Freq: Status: Active Protocol: Document 02/10/21 11:00 AMB (Rec: 02/10/21 11:21 AMB [id number]) Current Condition History of Current Condition Onset Date 1+ year ago Current Complaints Parkinsons- stiffness History of Current Condition Diagnosed a year ago, sx probably started longer than that. Still working at [employer] in the [facility], notes R leg pain at the end of her shift. Attends with soon to be daughter in law Maite. Lives in a split level with son, RENUKA and 2 grandsons, her works away from home for multiple weeks at a time. States stairs are not a problem. 1 fall in the last 6 months: Tripped in the dark when feeding the ducks was icy , no other falls, does have blisters on top of toes from toes curling up, thinks that's why she's walking differently . Has questions about her medications. Reports recent onset weight loss, does have a hard time finding the time to eat with timing of meds and work. Is supposed to get MRI of pancreas because of weightloss hasn't happened yet . Still drives. Treatment Goals Patient/Caregiver Goals Getting dressed (takes a long time/stiffness). 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 Prior Functional Status Baseline Function- ADL's Independent Baseline Function- Mobility Independent Current Functional Impairments (Reported) Functional Limitations- ADL's Takes a long time to get dressed, do buttons. Personal Factors Other Personal Factors That May Effect Scoliosis, pt reported R Therapy/Recovery sciatica, hammer toes PT-OP-C Subjective Start: 02/10/21 10:31 Freq: Status: Active Protocol: Document 03/28/21 11:00 AMB (Rec: 03/28/21 15:41 AMB [email or web address]) OP-PT Subjective Patient Comments Patient Comments Pt returns to PT after a weeklong vertigo attack, feels pretty much back to normal today, antibiotics helped. PT-OP-E Functional Tests Start: 02/10/21 10:31 Freq: Status: Active Protocol: Document 02/10/21 11:00 AMB (Rec: 02/10/21 15:42 AMB [email or web address]) Functional Tests 6 Minute Walk Test Distance 1162 Device Used none Five Times Sit to Stand Test Score 11 PT-OP-G Mobility & Gait Start: 02/10/21 10:31 Freq: Status: Active Protocol: Document 02/10/21 11:00 AMB (Rec: 02/10/21 15:42 AMB [email or web address]) OP Mobility Evaluation Bed Mobility Rolling I Supine to and from Sit I Transfers Sit to Stand I OP Gait Assessment Comments Gait Comments No trunk rotation or arm swing , R foot tends to slap towards end of 6 minutes PT-OP-M Strength Start: 02/10/21 10:31 Freq: Status: Active Protocol: Document 02/10/21 11:00 AMB (Rec: 02/10/21 15:42 AMB [email or web address]) Hip Strength Hip Manual Muscle Testing Right Flexion (L2) 4- Good- Extension (S1) 4- Good- Abduction 4- Good- Comments low back pain with R MMT Left Flexion (L2) 4 Good Extension (S1) 4 Good Abduction 4 Good Knee Strength Knee Manual Muscle Testing Right Flexion (S2) 4 Good Extension (L3) 4 Good Left Flexion (S2) 4 Good Extension (L3) 4+ Good+ Ankle/Foot Strength Ankle and Foot Manual Muscle Testing Left Dorsiflexion (L4) 4 Good Plantarflexion (S1) 4+ Good+ Right Dorsiflexion (L4) 4- Good- Plantarflexion (S1) 4+ Good+ PT-OP-Q Treatments Start: 02/10/21 10:31 Freq: Status: Active Protocol: Document 03/28/21 11:00 AMB (Rec: 03/28/21 15:41 AMB [email or web address]) Gait Training Gait Activity Walking Description BIG walking Device Used none Surface uneven terrain Distance/Duration 1400 Treatment Focus big arm swings Comments able to dual task ( conversation) and maintain big walking on sidewalks, stairs, curbs Neuro Re-Education Treatment Other Activities Sit<>Stand Details chair Reps/Duration 2x10 Comments focus on arms for forward lean Sideways Rock & Reach Details no UE support Reps/Duration x10 each Comments alternating sides Fwd Rock & reach Details no UE support Reps/Duration 10 Backwards Step & Reach Details no UE support Reps/Duration 10 Comments no UE support Sideways step & reach Details chair for balance Reps/Duration 10 Fwd Step & Reach Details no UE support Reps/Duration 10 Side to Side Reps/Duration 10 Comments with finger flicks- modified for back pain Floor to Ceiling Details standard chair Reps/Duration 10 Comments with finger flicks PT-OP-T Assessment and Plan Start: 02/10/21 10:31 Freq: Status: Active Protocol: Document 03/28/21 11:00 AMB (Rec: 03/28/21 15:41 AMB [email or web address]) Physical Therapy Assessment Goals Three Impairment HEP Short Term Goal (STG) Kajal will be independent and consistent with a HEP for LSVT BIG. STG Duration 2 weeks Two Impairment ADLs Short Term Goal (STG) Kajal will improve her ability to dress so that she can easily get her right leg in her pant leg. STG Duration 2 weeks Statistics Teacher Goal (LTG) Kajal will move from sit to stand with good body mechanics and without back pain. LTG Duration 4 weeks One Impairment Gait Short Term Goal (STG) Kajal will ambulate with good trunk rotation and arm swing. STG Duration 2 weeks Detention Goal (LTG) Kajal will increase her 6MWT distance to at least 1, 300 feet to meet norms for her age/gender. LTG Duration MET Assessment Summary Assessment Kajal didn't need UE support with her exercises today. Gait speed was similar to last progress note. Will see for one more visit to finishe BIG program, but won't be for a couple of weeks due to therapist/patient schedule due to her recent illness. Physical Therapy Plan Frequency and Duration Frequency of Treatment 1x/Week Duration of Treatment 4 weeks Plan of Care Start Date 03/28/21 Plan of Care End Date 04/25/21 Therapeutic Interventions Therapeutic Interventions Balance Training,Gait Training ,Home Exercise Program,Manual Therapy,Neuromuscular Re- education,Self-Care/Home Management,Therapeutic Activities,Therapeutic Exercises Next Visit Focus/Plan Next Note Type Treatment Note Next Visit Plan Work on balance after BIG exercises Can continue outdoor exercises as tolerated, working on decreasing need for UE support as long as amplitude is improved.
--- NOTE | 2021-03-28 15:42 | PT.OPPOC ---
Physical, Occupational & Speech Therapy At [facility] Current Diagnoses Parkinson's disease (03/28/21) Lumbago with sciatica, right side (03/28/21) Other abnormalities of gait and mobility (03/28/21) Visit Care Team Role Provider Type Laney Damon PA-C Family Provider Non-Staff Primary Care Provider Specialty: Medical Address: [address] [place] [address], [id number] Email: Macho Silva MD Attending Provider Non-Staff Referring Provider Specialty: Neurology Psychiatry Address: [address] [place] [address] [place], [address] Email: Plan Of Care PT-OP-T Assessment and Plan Start: 02/10/21 10:31 Freq: Status: Active Protocol: Document 03/28/21 11:00 AMB (Rec: 03/28/21 15:41 AMB [email or web address]) Physical Therapy Assessment Goals Three Impairment HEP Short Term Goal (STG) Kajal will be independent and consistent with a HEP for LSVT BIG. STG Duration 2 weeks Two Impairment ADLs Short Term Goal (STG) Kajal will improve her ability to dress so that she can easily get her right leg in her pant leg. STG Duration 2 weeks Tank Terminal Gauger Goal (LTG) Kajal will move from sit to stand with good body mechanics and without back pain. LTG Duration 4 weeks One Impairment Gait Short Term Goal (STG) Kajal will ambulate with good trunk rotation and arm swing. STG Duration 2 weeks Penitentiary Goal (LTG) Kajal will increase her 6MWT distance to at least 1, 300 feet to meet norms for her age/gender. LTG Duration MET Assessment Summary Assessment Kajal didn't need UE support with her exercises today. Gait speed was similar to last progress note. Will see for one more visit to finishe BIG program, but won't be for a couple of weeks due to therapist/patient schedule due to her recent illness. Physical Therapy Plan Frequency and Duration Frequency of Treatment 1x/Week Duration of Treatment 4 weeks Plan of Care Start Date 03/28/21 Plan of Care End Date 04/25/21 Therapeutic Interventions Therapeutic Interventions Balance Training,Gait Training ,Home Exercise Program,Manual Therapy,Neuromuscular Re- education,Self-Care/Home Management,Therapeutic Activities,Therapeutic Exercises Next Visit Focus/Plan Next Note Type Treatment Note Next Visit Plan Work on balance after BIG exercises Can continue outdoor exercises as tolerated, working on decreasing need for UE support as long as amplitude is improved. Plan of Care Dates Plan of Care Start Date 03/28/21 Plan of Care End Date 04/25/21 Electronically Signed by: Bhumi Kirby, PT 03/28/21 [id number] Please Sign and Return: I have reviewed this Plan of Care and certify that the skilled therapy services above are required to meet the patient?s needs. Physician Signature Date Printed Name and Credentials Clinical Instructor Signature Printed Name and Credentials
--- NOTE | 2021-04-25 15:04 | PT.OTN ---
Current Diagnoses Parkinson's disease (04/25/21) Lumbago with sciatica, right side (04/25/21) Other abnormalities of gait and mobility (04/25/21) Physical Therapy Treatment Note PT-OP-A Visit Information Start: 02/10/21 10:31 Freq: Status: Active Protocol: Document 04/25/21 11:00 AMB (Rec: 04/25/21 15:04 AMB [email or web address]) Out-Patient Physical Therapy Visit Information Visit Information Visit Type Discharge Summary Visit Start Time 11:00 Visit Stop Time 12:00 Total Visit Minutes 60 Visit Number 17 PT-OP-B Current Condition Start: 02/10/21 10:31 Freq: Status: Active Protocol: Document 02/10/21 11:00 AMB (Rec: 02/10/21 11:21 AMB [email or web address]) Current Condition History of Current Condition Onset Date 1+ year ago Current Complaints Parkinsons- stiffness History of Current Condition Diagnosed a year ago, sx probably started longer than that. Still working at [employer] (now [employer]) in the [facility], notes R leg pain at the end of her shift. Attends with soon to be daughter in law Maite. Lives in a split level with son, RENUKA and 2 grandsons, her works away from home for multiple weeks at a time. States stairs are not a problem. 1 fall in the last 6 months: Tripped in the dark when feeding the ducks was icy , no other falls, does have blisters on top of toes from toes curling up, thinks that's why she's walking differently . Has questions about her medications. Reports recent onset weight loss, does have a hard time finding the time to eat with timing of meds and work. Is supposed to get MRI of pancreas because of weightloss hasn't happened yet . Still drives. Treatment Goals Patient/Caregiver Goals Getting dressed (takes a long time/stiffness). 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 Prior Functional Status Baseline Function- ADL's Independent Baseline Function- Mobility Independent Current Functional Impairments (Reported) Functional Limitations- ADL's Takes a long time to get dressed, do buttons. Personal Factors Other Personal Factors That May Effect Scoliosis, pt reported R Therapy/Recovery sciatica, hammer toes PT-OP-C Subjective Start: 02/10/21 10:31 Freq: Status: Active Protocol: Document 04/25/21 11:00 AMB (Rec: 04/25/21 15:04 AMB [email or web address]) OP-PT Subjective Patient Comments Patient Comments Pt reports she is doing well with exercises, she has been having some fatigue but otherwise is doing well. PT-OP-E Functional Tests Start: 02/10/21 10:31 Freq: Status: Active Protocol: Document 02/10/21 11:00 AMB (Rec: 02/10/21 15:42 AMB [email or web address]) Functional Tests 6 Minute Walk Test Distance 1162 Device Used none Five Times Sit to Stand Test Score 11 PT-OP-G Mobility & Gait Start: 02/10/21 10:31 Freq: Status: Active Protocol: Document 02/10/21 11:00 AMB (Rec: 02/10/21 15:42 AMB [email or web address]) OP Mobility Evaluation Bed Mobility Rolling I Supine to and from Sit I Transfers Sit to Stand I OP Gait Assessment Comments Gait Comments No trunk rotation or arm swing , R foot tends to slap towards end of 6 minutes PT-OP-M Strength Start: 02/10/21 10:31 Freq: Status: Active Protocol: Document 02/10/21 11:00 AMB (Rec: 02/10/21 15:42 AMB [email or web address]) Hip Strength Hip Manual Muscle Testing Right Flexion (L2) 4- Good- Extension (S1) 4- Good- Abduction 4- Good- Comments low back pain with R MMT Left Flexion (L2) 4 Good Extension (S1) 4 Good Abduction 4 Good Knee Strength Knee Manual Muscle Testing Right Flexion (S2) 4 Good Extension (L3) 4 Good Left Flexion (S2) 4 Good Extension (L3) 4+ Good+ Ankle/Foot Strength Ankle and Foot Manual Muscle Testing Left Dorsiflexion (L4) 4 Good Plantarflexion (S1) 4+ Good+ Right Dorsiflexion (L4) 4- Good- Plantarflexion (S1) 4+ Good+ PT-OP-Q Treatments Start: 02/10/21 10:31 Freq: Status: Active Protocol: Document 04/25/21 11:00 AMB (Rec: 04/25/21 15:04 AMB [email or web address]) Gait Training Gait Activity Walking Description BIG walking Device Used none Surface uneven terrain Distance/Duration 1450 Treatment Focus big arm swings Comments able to dual task ( conversation) and maintain big walking on sidewalks, stairs, curbs Neuro Re-Education Treatment Other Activities Sit<>Stand Details chair Reps/Duration 2x10 Comments focus on arms for forward lean Sideways Rock & Reach Details no UE support Reps/Duration x10 each Comments alternating sides Fwd Rock & reach Details no UE support Reps/Duration 10 Backwards Step & Reach Details no UE support Reps/Duration 10 Comments no UE support Sideways step & reach Details no chair for balance Reps/Duration 10 Fwd Step & Reach Details no UE support Reps/Duration 10 Side to Side Reps/Duration 10 Comments with finger flicks- modified for back pain Floor to Ceiling Details standard chair Reps/Duration 10 Comments with finger flicks PT-OP-T Assessment and Plan Start: 02/10/21 10:31 Freq: Status: Active Protocol: Document 04/25/21 11:00 AMB (Rec: 04/25/21 15:04 AMB [email or web address]) Physical Therapy Assessment Goals Three Impairment HEP Short Term Goal (STG) Kajal will be independent and consistent with a HEP for LSVT BIG. STG Duration MET Two Impairment ADLs Short Term Goal (STG) Kajal will improve her ability to dress so that she can easily get her right leg in her pant leg. STG Duration MET Senior Living Goal (LTG) Kajal will move from sit to stand with good body mechanics and without back pain. LTG Duration MET One Impairment Gait Short Term Goal (STG) Kajal will ambulate with good trunk rotation and arm swing. STG Duration PARTIALLY MET Ca[place] Puller Goal (LTG) Kajal will increase her 6MWT distance to at least 1, 300 feet to meet norms for her age/gender. LTG Duration MET Assessment Summary Assessment Kajal overall has improved well with BIG PT. She continues to be stiff in her gait, but is walking better as shown by decreased stiffness and improved 6 minute walk test. She notes improved buttoning and dressing, although continues to be slower than she would like. She was able to do her exercises well with her daughter in law, and should be able to continue to progress independently. Physical Therapy Plan Discharge Physical Therapy Discharge Reasons Goals Met
== END 2021-04-26 10:36 | disposition home or self-care (01) ==
LOC: PHYS 11:00
PROVIDERS: Family Provider Physician Assistant; PCP Physician Assistant; Referring Provider Psychiatry & Neurology Neuromuscular Medicine; Visit Provider Psychiatry & Neurology Neuromuscular Medicine
DX: G20 Parkinson's disease (principal); R26.89 Other abnormalities of gait and mobility; M54.41 Lumbago with sciatica, right side
CPT/HCPCS: 97110; 97112; 97116; 97162; 97530; 97535

== ENCOUNTER 2023-03-24 00:59 | Inpatient (IN) | payer OTHER, MEDICARE, SELFPAY ==
[2023-03-24] VITALS (15 sets, daily range): BP systolic 93–192; BP diastolic 47–90; PULSE 70–88; RESP 14–18; TEMP 35.8–36.6; O2SAT 92–99; BMI 22.6
[2023-03-24] MEDS: ONDANSETRON 4 MG/2 ML INJ IV (01:13)
[2023-03-24 01:22] LABS: Alanine Aminotransferase 22 IU/L (<35); Albumin 4.6 g/dL (3.5-5.0); Albumin Globulin Ratio 1.2 (1.0-2.8); Alkaline Phosphatase 118 U/L (38-126); Aspartate Aminotransferase 28 IU/L (14-36); BUN Creatinine Ratio 33.3 (6-22); Bilirubin Total 0.9 mg/dL (0.2-1.3); Blood Urea Nitrogen 23 mg/dL (7-17); Calcium 9.7 mg/dL (8.4-10.2); Carbon Dioxide 28 mmol/L (22-32); Chloride 100 mmol/L (98-107); Estimated Glomerular Filt Rate > 60 mL/min (>60); Globulin 3.8 g/dL (1.7-4.1); Glucose 214 mg/dL (80-110); HEMOLYSIS < 15 (0-50); Lipase 131 U/L (23-300); Potassium 3.2 mmol/L (3.4-5.1); Sodium 141 mmol/L (137-145); Total Protein 8.4 g/dL (6.3-8.2)
[2023-03-24] MEDS: MORPHINE 4 MG/ML INJ IV (01:23)
[2023-03-24 01:25] LABS: Add Manual Diff / Slide Review NO; Basophils Absolute Auto 0 /uL (0-100); Basophils Percent Auto 0.3 % (0-2); Eosinophils Absolute Auto 0 /uL (0-450); Hematocrit 40.8 % (36-46); Hemoglobin 13.8 g/dL (12.0-16.0); Lymphocytes Absolute Auto 2100 /uL (1100-4500); Lymphocytes Percent Auto 17.9 % (25-40); Mean Corpuscular HGB Conc 33.8 % (30-36); Mean Corpuscular Hemoglobin 30.1 PG (26-34); Mean Corpuscular Volume 88.8 fL (80-100); Monocytes Absolute Auto 400 /uL (0-900); Monocytes Percent Auto 3.3 % (3-14); Neutrophils Absolute Auto 9300 /uL (1500-7000); Neutrophils Percent Auto 78.5 % (50-75); Platelet Count 237 X10^3/uL (150-400); Red Blood Cell Count 4.59 X10^6/uL (4.0-5.2); Red Cell Distribution Width 13.5 % (11.6-14.8); White Blood Cell Count 11.9 X10^3/uL (4.5-11.0)
--- NOTE | 2023-03-24 01:33 | ED.ABDPAIN ---
HPI - Abdominal Pain General Chief Complaint: Abdominal Pain Stated Complaint: abd/back pain Time Seen by Provider: 03/24/23 01:14 Source: patient and EMS Mode of arrival: EMS History of Present Illness HPI narrative: This is a 82-year-old female with history of Parkinson's disease on carbidopa levodopa and sertraline. Patient states about 8:00 a.m. this evening she started having pain in her stomach area and felt like her belly was swelling up. She states pain continued to increase. She is had chills but no fever. She describes pain more on the right side than left and in the right flank. She states it was sort of gradually worsening over time. She is had nausea and vomiting with 3 episodes of emesis. She states she has diarrhea and constipation intermittently but her last bowel movement was yesterday. She has not appreciated any melena or hematochezia. She denies dysuria, urgency or frequency. No incontinence. No vaginal bleeding or discharge. She denies any chest pain or new shortness of breath. She denies any syncope or lightheadedness. She notes that her neighbors recently had illness where they both had some vomiting 2 or 3 days ago. 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 She denies other surgeries. States she is allergic to penicillin. No tobacco, rare alcohol, no illicit. Laney Damon is her PCP. She is accompanied by her son and his fiance. Related Data Home Medications Medication Instructions Recorded Confirmed latanoprost 0.005 % eye drops 1 drp EYE-BOTH BEDTIME 05/04/18 05/12/18 carbidopa ER 50 mg-levodopa 200 mg 1 tab PO BID 03/24/23 03/24/23 tablet,extended release sertraline 50 mg tablet 50 mg PO DAILY 03/24/23 03/24/23 Allergies Allergy/AdvReac Type Severity Reaction Status Date / Time Penicillins Allergy Unknown Verified 03/24/23 01:10 Review of Systems Review of Systems ROS Unobtainable: All systems reviewed & are unremarkable except as noted in HPI and below Patient History Medical History (Updated 03/24/23 @ 02:44 by Josephine Monteiro DO) Healthy adult Surgical History No pertinent past surgical history Social History Smoking Status: Never smoker Smoking Status: Never smoker alcohol intake frequency: 0-2 drinks per day Substance Use Type: does not use Exam Narrative Exam Narrative: GENERAL: Alert and oriented x three, elderly female in moderate distress. HEENT: Head normocephalic, atraumatic, EOMI, pupils reactive, face symmetric, moist mucous membranes NECK: Supple, full range of motion CARDIOVASCULAR: Regular rate and rhythm without murmurs, rubs or gallops. No JVD. No swelling bilateral lower extremities. RESPIRATORY: Breath sounds equal bilaterally, no wheezes rales or rhonchi. No tachypnea or accessory muscle use. ABDOMEN: Soft, nontender. Normoactive bowel sounds all 4 quadrants. No guarding or rebound, rigidity, no mass, no pulsatile mass or bruit. Patient has large midline vertical incision that appears healed. : No CVA tenderness EXTREMITIES: Normal range of motion, no clubbing or edema. 2+ pulses bilateral lower extremities. Neurovascularly intact NEUROLOGICAL: Cranial nerves II through XII grossly intact. Moving all extremities SKIN: Warm, dry, no petechiae, no rashes or lesions. Initial Vital Signs Initial Vital Signs: Vital Signs Pulse Rate 80 03/24/23 01:04 Respiratory Rate 16 03/24/23 01:04 Pulse Oximetry 99 03/24/23 01:04 Course Orders Ordered: ED Orders 03/24/23 01:04 Complete Blood Count AUTO DIFF Stat Comprehensive Metabolic Panel Stat Lactate (Lactic Acid) Stat Lipase Stat Procalcitonin Stat 03/24/23 01:13 EKG-12 Lead Stat 03/24/23 01:43 CT abdomen pelvis w con Stat 03/24/23 02:11 Blood Culture Stat 03/24/23 02:35 UA Complete [Urinalysis and Microscopic] Stat Urine Culture Stat Hydromorphone HCl (Hydromorphone 0.5 Mg Inj) 0.5 mg IV Q2H PRN PRN Reason: Pain, Moderate (4-6) Last Admin: 03/24/23 03:33 Dose: 0.5 mg Documented By: Hydromorphone HCl (Hydromorphone 0.5 Mg Inj) 0.5 mg IV Q2H PRN PRN Reason: Pain, Severe (7-10) Sodium Chloride (Normal Saline 0.9%) 1,000 mls @ 150 mls/hr IV CONT CHRIS Last Admin: 03/24/23 02:49 Dose: 150 mls/hr Documented By: Lactated Ringer's (Lactated Ringers) 1,000 mls @ 100 mls/hr IV CONT CHRIS Naloxone HCl (Naloxone 0.4 Mg/Ml Vial) 0.2 mg IV Q2MIN PRN PRN Reason: Opiate Reversal Ondansetron HCl (Ondansetron 4 Mg Odt) 4 mg PO NOW PRN PRN Reason: Nausea And Vomiting Ondansetron HCl (Ondansetron 4 Mg/2 Ml Inj) 4 mg IV NOW PRN PRN Reason: Nausea And Vomiting Last Admin: 03/24/23 01:13 Dose: 4 mg Documented By: Ondansetron HCl (Ondansetron 4 Mg/2 Ml Inj) 4 mg IV Q8HR PRN PRN Reason: Nausea And Vomiting Ondansetron HCl (Ondansetron 4 Mg Odt) 4 mg PO Q8HR PRN PRN Reason: Nausea And Vomiting Discontinued Medications Hydromorphone HCl (Hydromorphone 0.5 Mg Inj) 0.5 mg IV NOW ONE Stop: 03/24/23 01:44 Last Admin: 03/24/23 02:04 Dose: 0.5 mg Documented By: Sodium Chloride (Normal Saline 0.9%) 1,000 mls @ 1,000 mls/hr IV BOLUS ONE Stop: 03/24/23 02:42 Last Infusion: 03/24/23 02:46 Dose: 0 mls/hr Documented By: Admin: 03/24/23 01:54 Dose: 1,000 mls/hr Documented By: Morphine Sulfate (Morphine 4 Mg/Ml Inj) 4 mg IV NOW ONE Stop: 03/24/23 01:19 Last Admin: 03/24/23 01:23 Dose: 4 mg Documented By: Vital Signs Vital signs: Vital Signs - 8 hr 03/24/23 01:07 03/24/23 01:04 03/24/23 01:30 Temperature 97.8 F Pulse Rate 84 80 Respiratory Rate 18 16 Blood Pressure 192/90 H 168/77 H Pulse Oximetry 97 99 Oxygen Delivery Method Room Air 03/24/23 01:30 03/24/23 02:08 03/24/23 02:31 Temperature Pulse Rate 81 81 88 Respiratory Rate Blood Pressure Pulse Oximetry 96 95 Oxygen Delivery Method 03/24/23 02:50 03/24/23 02:50 Temperature Pulse Rate 72 Respiratory Rate 14 Blood Pressure 123/62 Pulse Oximetry 96 Oxygen Delivery Method MDM - Abdominal Pain Lab Data 03/24/23 01:04 03/24/23 01:04 Labs: Lab Results 03/24/23 03/24/23 03/24/23 Range/Units 01:04 01:04 01:04 WBC 11.9 H (4.5-11.0) X10^3/uL RBC 4.59 (4.0-5.2) X10^6/uL Hgb 13.8 (12.0-16.0) g/dL Hct 40.8 (36-46) % MCV 88.8 (80-100) fL MCH 30.1 (26-34) PG MCHC 33.8 (30-36) % RDW 13.5 (11.6-14.8) % Plt Count 237 (150-400) X10^3/uL Neut % (Auto) 78.5 H (50-75) % Lymph % (Auto) 17.9 L (25-40) % [place] % (Auto) 3.3 (3-14) % Eos % (Auto) 0.0 L (2-4) % Baso % (Auto) 0.3 (0-2) % Neut # (Auto) 9300 H (2037-5549) /uL Lymph # (Auto) 2100 (8896-6788) /uL [place] # (Auto) 400 (0-900) /uL Eos # (Auto) 0 (0-450) /uL Baso # (Auto) 0 (0-100) /uL Sodium 141 (137-145) mmol/L Potassium 3.2 L (3.4-5.1) mmol/L Chloride 100 (98-107) mmol/L Carbon Dioxide 28 (22-32) mmol/L BUN 23 H (7-17) mg/dL Creatinine 0.69 (0.52-1.04) mg/dL Estimated GFR > 60 (>60) mL/min BUN/Creatinine Ratio 33.3 H (6-22) Glucose 214 H (80-110) mg/dL Lactate 3.9 H (0.7-2.1) mmol/L Calcium 9.7 (8.4-10.2) mg/dL Total Bilirubin 0.9 (0.2-1.3) mg/dL AST 28 (14-36) IU/L ALT 22 (<35) IU/L Alkaline Phosphatase 118 (38-126) U/L Total Protein 8.4 H (6.3-8.2) g/dL Albumin 4.6 (3.5-5.0) g/dL Globulin 3.8 (1.7-4.1) g/dL Albumin/Globulin Ratio 1.2 (1.0-2.8) Lipase 131 (23-300) U/L Procalcitonin (<0.5) ng/mL Urine Color Urine Appearance Urine pH (4.5-8.0) Ur Specific [place] (1.000-1.035) Urine Protein (Negative) Urine Glucose (UA) (Negative) g/dL Urine Ketones (NEGATIVE) Urine Occult Blood (Negative) Urine Nitrate (Negative) Urine Bilirubin (NEGATIVE) Urine Urobilinogen (0.2) E.U./dL Ur Leukocyte Esterase (NEGATIVE) Urine RBC (0-5/HPF) Urine WBC (0-5/HPF) Ur Squamous Epith Cells (0-5/HPF) Urine Bacteria (None) Ur Culture Indicated? 03/24/23 03/24/23 Range/Units 01:04 02:35 WBC (4.5-11.0) X10^3/uL RBC (4.0-5.2) X10^6/uL Hgb (12.0-16.0) g/dL Hct (36-46) % MCV (80-100) fL MCH (26-34) PG MCHC (30-36) % RDW (11.6-14.8) % Plt Count (150-400) X10^3/uL Neut % (Auto) (50-75) % Lymph % (Auto) (25-40) % [place] % (Auto) (3-14) % Eos % (Auto) (2-4) % Baso % (Auto) (0-2) % Neut # (Auto) (7299-9705) /uL Lymph # (Auto) (0920-0592) /uL [place] # (Auto) (0-900) /uL Eos # (Auto) (0-450) /uL Baso # (Auto) (0-100) /uL Sodium (137-145) mmol/L Potassium (3.4-5.1) mmol/L Chloride (98-107) mmol/L Carbon Dioxide (22-32) mmol/L BUN (7-17) mg/dL Creatinine (0.52-1.04) mg/dL Estimated GFR (>60) mL/min BUN/Creatinine Ratio (6-22) Glucose (80-110) mg/dL Lactate (0.7-2.1) mmol/L Calcium (8.4-10.2) mg/dL Total Bilirubin (0.2-1.3) mg/dL AST (14-36) IU/L ALT (<35) IU/L Alkaline Phosphatase (38-126) U/L Total Protein (6.3-8.2) g/dL Albumin (3.5-5.0) g/dL Globulin (1.7-4.1) g/dL Albumin/Globulin Ratio (1.0-2.8) Lipase (23-300) U/L Procalcitonin 0.04 (<0.5) ng/mL Urine Color Yellow Urine Appearance Clear Urine pH 6.5 (4.5-8.0) Ur Specific [place] 1.010 (1.000-1.035) Urine Protein Negative (Negative) Urine Glucose (UA) 1+ H (Negative) g/dL Urine Ketones Trace H (NEGATIVE) Urine Occult Blood Negative (Negative) Urine Nitrate Negative (Negative) Urine Bilirubin Negative (NEGATIVE) Urine Urobilinogen 0.2 (0.2) E.U./dL Ur Leukocyte Esterase 1+ H (NEGATIVE) Urine RBC None seen (0-5/HPF) Urine WBC 1-5/hpf (0-5/HPF) Ur Squamous Epith Cells None seen (0-5/HPF) Urine Bacteria None seen (None) Ur Culture Indicated? Specimen cultured Point of care testing: Urine Dip Bedside Urine Glucose 100 mg/dl Bedside Urine Bilirubin - Negative Bedside Urine Ketone +/- 5 Urine Specific [place] 1.010 Bedside Urine Occult Blood - Negative Bedside Urine pH 6.0 Bedside Urine Protein - Negative Bedside Urine Urobilinogen - Negative Bedside Urine Nitrite - Negative Bedside Urine Leukocytes +/- [address] scan - abdomen/pelvis: Radiologist's Impression: Stable right renal cyst. Markedly distended loops of small bowel in a clustered centered in the lower abdomen and upper pelvis consistent with mechanical obstruction there is extensive adjacent mesenteric edema there is distinct transition distally and distal ileum is decompressed as in the colon. No: While abnormality no pneumatosis or pneumoperitoneum evidence sigmoid and diverticula are incidentally noted. Small calcified uterine fibroid. ECG Data Attestation: I personally reviewed and interpreted this ECG as follows: Prior ECG tracings: available for review Interpretation: Sinus rhythm with marked sinus arrhythmia, left axis deviation and right bundle-branch block. Rate 87 MT 200, QRS of 144 QTC of 529. No acute ST elevation or depression appreciated patient has prior from 05/04/2018 that appears similar although voltage for QRS complexes was lower MDM Narrative Medical decision making narrative: This is an 82-year-old female with gradually worsening abdominal pain that started earlier this evening. She has had recent sick contacts, she is hypertensive. She describes generalized abdominal pain but more on the right and extending to the right flank. Nausea vomiting, no syncope but generally feels quite unwell. She would a dose of morphine which was helpful but still quite painful. Labs including CBC, CMP, lipase were obtained patient's vitals do not reflect sepsis but patient appears unwell so lactate, procalcitonin and cultures were obtained. EKG appears fairly similar to prior from 2018. Symptoms and patient's history including resection of a large peritoneal tumor no bowel movement in 24 hours with nausea vomiting worsening abdominal pain imaging to evaluate for obstruction versus colitis, appendicitis, kidney stone or other causes. Patient had additional dose of pain medication. She does state nausea is improved with Zofran. Patient given 1L of NS. Labs show leukocytosis with leftward shift, with WBC count of 11.9. Coags are negative. CMP shows a potassium of 3.2, BUN 23 with normal renal function, sodium is 141 and CO2 is 28. Glucose is 214, LFTs are negative with a negative lipase. Lactate show is elevated at 3.9 this was repeated and is 2.2 Procalcitonin is negative. Patient's urine sample some some leuks. CT imaging shows changes consistent with mechanical obstruction with a distinct transition point distally. Case was discussed with Dr. Renee for general surgery who was happy to see the patient asked for the hospitalist for admission secondary to patient's medical issues and age. He will see patient this morning. Spoke with Dr. Terry, telehospitalist: Accepts for inpatient admission. Asks for NG tube to be placed. Discussed general surgery plans to see this morning for possible OR. Nursing placed NG tube, Abd xray ordered and appears in place. Discharge Plan Departure Patient Disposition: Admitted As Inpatient Clinical Impression: Bowel obstruction, Hypokalemia Admit Date/Time: 03/24/23 02:57 Admit Provider: [place] Terry
--- NOTE | 2023-03-24 01:43 | DI.CT.S_ITS ---
PROCEDURE: CT ABDOMEN PELVIS W CON INDICATIONS: abd pain, r>L, n+v and r flank pain TECHNIQUE: After the administration of intravenous contrast, axial sections acquired from the lung bases to the pubic symphysis. Coronal and sagittal reformats were performed. For radiation dose reduction, the following was used: automated exposure control, adjustment of mA and/or kV according to patient size. COMPARISON: [facility], CT, CT CHEST ABD PEL WO CON, 12/30/2020, 9:51. FINDINGS: Image quality: Excellent. Lung bases: Unremarkable. Heart: No significant findings. ABDOMEN: Liver: Numerous incidental liver cysts. No solid masses.. Gallbladder: Unremarkable. Biliary ducts: Unremarkable. Pancreas: Unremarkable. Spleen: Unremarkable. Adrenal Glands: Unremarkable. Kidneys and Ureters: Unremarkable. Stomach and Bowel: Distal small bowel is dilated inflamed and fluid filled, with some swirling of the mesentery and focal transition point. Consider closed loop obstruction. There is extensive inflammatory change and edema in the adjacent mesentery extending to the root of the mesentery, with development of mild abdominal ascites. Extensive sigmoid diverticulosis without evidence of diverticulitis. Peritoneum: No abnormal intraperitoneal fluid. No free air. Ventral Wall: No hernias. Abdominal Nodes: No retroperitoneal or mesenteric adenopathy by size criteria. Vessels: Aorta and inferior vena cava are normal in size. PELVIS: Pelvic Organs: Incidental calcified uterine fibroid.. Bladder: Unremarkable. Pelvic Nodes: No enlarged lymph nodes. Miscellaneous: No hernias are seen. Bones: Scoliotic curvature and degenerative change of the lumbar spine. No lytic or blastic bony lesions. No compression fractures. IMPRESSION: 1. Markedly abnormal appearance of small bowel with distal obstruction and extensive inflammatory change and edema in the root of the mesentery and mild ascites. Consider closed loop obstruction. Comment: Final report is concordant with preliminary interpretation provided by [facility]. A preliminary called report was provided to the emergency department on 03/24/2023 at 0238 hours Dictated by: Long Hernandez M.D. on 03/24/2023 at 8:23 Approved by: Long Hernandez M.D. on 03/24/2023 at 8:29
[2023-03-24] MEDS: SODIUM CHLORIDE 0.9% 1,000 ML 1000 ML IV (01:54)
[2023-03-24 01:56] LABS: Lactate (Lactic Acid) 3.9 mmol/L (0.7-2.1)
[2023-03-24] MEDS: HYDROMORPHONE 0.5 MG INJ IV ×2 (02:04→03:33)
[2023-03-24 02:13] LABS: Procalcitonin 0.04 ng/mL (<0.5)
[2023-03-24] MEDS: SODIUM CHLORIDE 0.9% 1,000 ML 150 ML IV (02:49)
[2023-03-24 02:50] LABS: Appearance Urine UA CLEAR; Bilirubin Urine UA NEGATIVE (NEGATIVE); Color Urine UA YELLOW; Glucose Urine UA 1+ g/dL (Negative); Ketones Urine UA TRACE (NEGATIVE); Leukocyte Esterase Urine UA 1+ (NEGATIVE); Nitrite Urine UA NEGATIVE (Negative); Occult Blood Urine UA NEGATIVE (Negative); Protein Urine UA NEGATIVE (Negative); Urobilinogen Urine UA 0.2 E.U./dL (0.2)
[2023-03-24 02:53] LABS: pH Urine UA 6.5 (4.5-8.0)
[2023-03-24 03:04] LABS: Bacteria Urine None Seen; Culture Indicated Urine Specimen Cultured; RBC Urine None Seen (0-5/HPF); Squamous Epithelial Cell Urine None Seen (0-5/HPF); WBC Urine 1-5/HPF (0-5/HPF)
--- NOTE | 2023-03-24 03:20 | DI.RAD.S_ITS ---
PROCEDURE: XR ABDOMEN 1V INDICATIONS: NG tube placement TECHNIQUE: One view of the abdomen acquired. COMPARISON: [facility], CT, CT ABDOMEN PELVIS W CON, 03/24/2023, 2:03. FINDINGS: Surgical changes and devices: NG tube projects to the fundus of the stomach.. Bowel: No dilated visualized bowel loops. However, the bowel abnormality on CT involves the distal small bowel. Soft tissues: No suspicious abdominal calcifications. Visualized solid organ contours appear normal in size. Bones: No suspicious bony lesions. IMPRESSION: NG tube tip projects to the stomach Dictated by: Long Hernandez M.D. on 03/24/2023 at 9:05 Approved by: Long Hernandez M.D. on 03/24/2023 at 9:09
[2023-03-24 03:47] LABS: Reflexed Lactate in 2 Hours Y
[2023-03-24 03:51] LABS: Lactate 2HR (Lactic Acid Rflx) 2.2 mmol/L (0.7-2.1)
--- NOTE | 2023-03-24 04:10 | PM.HP.1 ---
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 Prior to that she had few days of alternating diarrhea and constipation. In the ED diagnosed with SBO. [facility] Medical History Healthy adult Surgical History No pertinent past surgical history Social History Smoking Status: Never smoker Meds Home Medications and Allergies Home Medications Medication Instructions Recorded Confirmed Type latanoprost 0.005 % eye drops 1 drp EYE-BOTH BEDTIME 05/04/18 03/24/23 History carbidopa ER 50 mg-levodopa 200 mg 1 tab PO BID 03/24/23 03/24/23 History tablet,extended release sertraline 50 mg tablet 50 mg PO DAILY 03/24/23 03/24/23 History Allergies Allergy/AdvReac Type Severity Reaction Status Date / Time Penicillins Allergy Unknown Verified 03/24/23 01:10 Review of Systems Cardiovascular Comments: w/o chest pain or palpitations Respiratory Comments: w/o shortness of breath Gastrointestinal Comments: distension, pain, nausea, vomiting last BM on 03/22 Genitourinary Comments: w/o dysuria Exam Vital Signs (past 8 hours): - 03/24/23 01:07 03/24/23 01:04 03/24/23 01:30 Temperature 97.8 F Pulse Rate 84 80 Respiratory Rate 18 16 Blood Pressure 192/90 H 168/77 H Pulse Oximetry 97 99 Oxygen Delivery Method Room Air 03/24/23 01:30 03/24/23 02:08 03/24/23 02:31 Temperature Pulse Rate 81 81 88 Respiratory Rate Blood Pressure Pulse Oximetry 96 95 Oxygen Delivery Method 03/24/23 02:50 03/24/23 02:50 03/24/23 03:00 Temperature Pulse Rate 72 Respiratory Rate 14 Blood Pressure 123/62 113/58 L Pulse Oximetry 96 Oxygen Delivery Method 03/24/23 03:00 03/24/23 03:30 03/24/23 03:35 Temperature Pulse Rate 72 71 Respiratory Rate 15 16 Blood Pressure 93/52 L Pulse Oximetry 97 95 Oxygen Delivery Method 03/24/23 03:35 Temperature Pulse Rate 71 Respiratory Rate 14 Blood Pressure Pulse Oximetry 96 Oxygen Delivery Method Oxygen Delivery Method Room Air Objective Imaging CT scan - abdomen: Radiologist's impression: SBO Labs 03/24/23 01:04 03/24/23 01:04 Labs: Laboratory Results - last 24 hr 03/24/23 03/24/23 03/24/23 01:04 01:04 01:04 WBC 11.9 H RBC 4.59 Hgb 13.8 Hct 40.8 MCV 88.8 MCH 30.1 MCHC 33.8 RDW 13.5 Plt Count 237 Neut % (Auto) 78.5 H Lymph % (Auto) 17.9 L [place] % (Auto) 3.3 Eos % (Auto) 0.0 L Baso % (Auto) 0.3 Neut # (Auto) 9300 H Lymph # (Auto) 2100 [place] # (Auto) 400 Eos # (Auto) 0 Baso # (Auto) 0 Sodium 141 Potassium 3.2 L Chloride 100 Carbon Dioxide 28 BUN 23 H Creatinine 0.69 Estimated GFR > 60 BUN/Creatinine Ratio 33.3 H Glucose 214 H Lactate 3.9 H Calcium 9.7 Total Bilirubin 0.9 AST 28 ALT 22 Alkaline Phosphatase 118 Total Protein 8.4 H Albumin 4.6 Globulin 3.8 Albumin/Globulin Ratio 1.2 Lipase 131 Procalcitonin Urine Color Urine Appearance Urine pH Ur Specific [place] Urine Protein Urine Glucose (UA) Urine Ketones Urine Occult Blood Urine Nitrate Urine Bilirubin Urine Urobilinogen Ur Leukocyte Esterase Urine RBC Urine WBC Ur Squamous Epith Cells Urine Bacteria Ur Culture Indicated? 03/24/23 03/24/23 03/24/23 01:04 02:35 03:26 WBC RBC Hgb Hct MCV MCH MCHC RDW Plt Count Neut % (Auto) Lymph % (Auto) [place] % (Auto) Eos % (Auto) Baso % (Auto) Neut # (Auto) Lymph # (Auto) [place] # (Auto) Eos # (Auto) Baso # (Auto) Sodium Potassium Chloride Carbon Dioxide BUN Creatinine Estimated GFR BUN/Creatinine Ratio Glucose Lactate Cancelled Calcium Total Bilirubin AST ALT Alkaline Phosphatase Total Protein Albumin Globulin Albumin/Globulin Ratio Lipase Procalcitonin 0.04 Urine Color Yellow Urine Appearance Clear Urine pH 6.5 Ur Specific [place] 1.010 Urine Protein Negative Urine Glucose (UA) 1+ H Urine Ketones Trace H Urine Occult Blood Negative Urine Nitrate Negative Urine Bilirubin Negative Urine Urobilinogen 0.2 Ur Leukocyte Esterase 1+ H Urine RBC None seen Urine WBC 1-5/hpf Ur Squamous Epith Cells None seen Urine Bacteria None seen Ur Culture Indicated? Specimen cultured 03/24/23 03:26 WBC RBC Hgb Hct MCV MCH MCHC RDW Plt Count Neut % (Auto) Lymph % (Auto) [place] % (Auto) Eos % (Auto) Baso % (Auto) Neut # (Auto) Lymph # (Auto) [place] # (Auto) Eos # (Auto) Baso # (Auto) Sodium Potassium Chloride Carbon Dioxide BUN Creatinine Estimated GFR BUN/Creatinine Ratio Glucose Lactate 2.2 H Calcium Total Bilirubin AST ALT Alkaline Phosphatase Total Protein Albumin Globulin Albumin/Globulin Ratio Lipase Procalcitonin Urine Color Urine Appearance Urine pH Ur Specific [place] Urine Protein Urine Glucose (UA) Urine Ketones Urine Occult Blood Urine Nitrate Urine Bilirubin Urine Urobilinogen Ur Leukocyte Esterase Urine RBC Urine WBC Ur Squamous Epith Cells Urine Bacteria Ur Culture Indicated? Assessment & Plan Assessment & Plan narrative: 1. SBO - NPO, NGT for suction - antiemetics, pain management, IVFs - Sx evaluating this morning for OR - likely adhesions from prior laparotomy 2. Parkinson's Disease - Sinemet 50/200 bid - restart postop 3. Glaucoma - Latanoprost drops 4. Depression - Zoloft 50 mg daily - restart postop
--- NOTE | 2023-03-24 04:50 | PM.HP.1 ---
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 Prior to that she had few days of alternating diarrhea and constipation. In the ED diagnosed with SBO. [facility] Medical History Healthy adult Surgical History No pertinent past surgical history Social History Smoking Status: Never smoker Meds Home Medications and Allergies Home Medications Medication Instructions Recorded Confirmed Type latanoprost 0.005 % eye drops 1 drp EYE-BOTH BEDTIME 05/04/18 03/24/23 History carbidopa ER 50 mg-levodopa 200 mg 1 tab PO BID 03/24/23 03/24/23 History tablet,extended release sertraline 50 mg tablet 50 mg PO DAILY 03/24/23 03/24/23 History Allergies Allergy/AdvReac Type Severity Reaction Status Date / Time Penicillins Allergy Unknown Verified 03/24/23 01:10 Review of Systems Constitutional Comments: no fever had chills Cardiovascular Comments: w.o chest pressure or pain Respiratory Comments: w.o shortness of breath Gastrointestinal Comments: nausea, vomited x 3 , pain, distension Genitourinary Comments: w/o dysuria Neurologic Comments: chronic arm tremor Psychiatric Comments: stable mood Exam Vital Signs (past 8 hours): - 03/24/23 01:07 03/24/23 01:04 03/24/23 01:30 Temperature 97.8 F Pulse Rate 84 80 Respiratory Rate 18 16 Blood Pressure 192/90 H 168/77 H Pulse Oximetry 97 99 Oxygen Delivery Method Room Air Oxygen Flow Rate 03/24/23 01:30 03/24/23 02:08 03/24/23 02:31 Temperature Pulse Rate 81 81 88 Respiratory Rate Blood Pressure Pulse Oximetry 96 95 Oxygen Delivery Method Oxygen Flow Rate 03/24/23 02:50 03/24/23 02:50 03/24/23 03:00 Temperature Pulse Rate 72 Respiratory Rate 14 Blood Pressure 123/62 113/58 L Pulse Oximetry 96 Oxygen Delivery Method Oxygen Flow Rate 03/24/23 03:00 03/24/23 03:30 03/24/23 03:35 Temperature Pulse Rate 72 71 Respiratory Rate 15 16 Blood Pressure 93/52 L Pulse Oximetry 97 95 Oxygen Delivery Method Oxygen Flow Rate 03/24/23 03:35 03/24/23 03:34 03/24/23 04:00 Temperature 96.5 F L 96.5 F L Pulse Rate 71 76 76 Respiratory Rate 14 14 14 Blood Pressure 113/62 113/63 Pulse Oximetry 96 96 96 Oxygen Delivery Method Oxygen Flow Rate 0 Oxygen Delivery Method Room Air Oxygen Flow Rate 0 Const Other: Laying in bed, appears tired, in no distress Neck Other: supple Resp Other: CTA Cardio Other: RRR GI Other: distended, tender Skin Other: no rashes or jaundice Neuro Other: arm tremor, bradykinetic Extrem Other: w.o swelling Psych Other: flat affect Objective Labs 03/24/23 01:04 03/24/23 01:04 Labs: Laboratory Results - last 24 hr 03/24/23 03/24/23 03/24/23 01:04 01:04 01:04 WBC 11.9 H RBC 4.59 Hgb 13.8 Hct 40.8 MCV 88.8 MCH 30.1 MCHC 33.8 RDW 13.5 Plt Count 237 Neut % (Auto) 78.5 H Lymph % (Auto) 17.9 L [place] % (Auto) 3.3 Eos % (Auto) 0.0 L Baso % (Auto) 0.3 Neut # (Auto) 9300 H Lymph # (Auto) 2100 [place] # (Auto) 400 Eos # (Auto) 0 Baso # (Auto) 0 Sodium 141 Potassium 3.2 L Chloride 100 Carbon Dioxide 28 BUN 23 H Creatinine 0.69 Estimated GFR > 60 BUN/Creatinine Ratio 33.3 H Glucose 214 H Lactate 3.9 H Calcium 9.7 Total Bilirubin 0.9 AST 28 ALT 22 Alkaline Phosphatase 118 Total Protein 8.4 H Albumin 4.6 Globulin 3.8 Albumin/Globulin Ratio 1.2 Lipase 131 Procalcitonin Urine Color Urine Appearance Urine pH Ur Specific [place] Urine Protein Urine Glucose (UA) Urine Ketones Urine Occult Blood Urine Nitrate Urine Bilirubin Urine Urobilinogen Ur Leukocyte Esterase Urine RBC Urine WBC Ur Squamous Epith Cells Urine Bacteria Ur Culture Indicated? 03/24/23 03/24/23 03/24/23 01:04 02:35 03:26 WBC RBC Hgb Hct MCV MCH MCHC RDW Plt Count Neut % (Auto) Lymph % (Auto) [place] % (Auto) Eos % (Auto) Baso % (Auto) Neut # (Auto) Lymph # (Auto) [place] # (Auto) Eos # (Auto) Baso # (Auto) Sodium Potassium Chloride Carbon Dioxide BUN Creatinine Estimated GFR BUN/Creatinine Ratio Glucose Lactate Cancelled Calcium Total Bilirubin AST ALT Alkaline Phosphatase Total Protein Albumin Globulin Albumin/Globulin Ratio Lipase Procalcitonin 0.04 Urine Color Yellow Urine Appearance Clear Urine pH 6.5 Ur Specific [place] 1.010 Urine Protein Negative Urine Glucose (UA) 1+ H Urine Ketones Trace H Urine Occult Blood Negative Urine Nitrate Negative Urine Bilirubin Negative Urine Urobilinogen 0.2 Ur Leukocyte Esterase 1+ H Urine RBC None seen Urine WBC 1-5/hpf Ur Squamous Epith Cells None seen Urine Bacteria None seen Ur Culture Indicated? Specimen cultured 03/24/23 03:26 WBC RBC Hgb Hct MCV MCH MCHC RDW Plt Count Neut % (Auto) Lymph % (Auto) [place] % (Auto) Eos % (Auto) Baso % (Auto) Neut # (Auto) Lymph # (Auto) [place] # (Auto) Eos # (Auto) Baso # (Auto) Sodium Potassium Chloride Carbon Dioxide BUN Creatinine Estimated GFR BUN/Creatinine Ratio Glucose Lactate 2.2 H Calcium Total Bilirubin AST ALT Alkaline Phosphatase Total Protein Albumin Globulin Albumin/Globulin Ratio Lipase Procalcitonin Urine Color Urine Appearance Urine pH Ur Specific [place] Urine Protein Urine Glucose (UA) Urine Ketones Urine Occult Blood Urine Nitrate Urine Bilirubin Urine Urobilinogen Ur Leukocyte Esterase Urine RBC Urine WBC Ur Squamous Epith Cells Urine Bacteria Ur Culture Indicated? Assessment & Plan Assessment & Plan narrative: 1. SBO - NPO, NGT for suction - antiemetics, pain management, IVFs - Sx evaluating this morning for OR - likely adhesions from prior laparotomy 2. Parkinson's Disease - Sinemet 50/200 bid - restart postop 3. Glaucoma - Latanoprost drops 4. Depression - Zoloft 50 mg daily - restart postop
[2023-03-24] MEDS: LACTATED RINGERS 1,000 ML 100 ML IV ×2 (05:07→20:37)
--- NOTE | 2023-03-24 08:15 | P.PN_ITS ---
Subjective Subjective Interval history: Feeling tired since not much sleep last night. States her pain is not co mpletely adequately controlled. Is not passing any gas. Exam Vital Signs (past 8 hours): - 03/24/23 01:07 03/24/23 01:04 03/24/23 01:30 Temperature 97.8 F Pulse Rate 84 80 Respiratory Rate 18 16 Blood Pressure 192/90 H 168/77 H Pulse Oximetry 97 99 Oxygen Delivery Method Room Air Oxygen Flow Rate 03/24/23 01:30 03/24/23 02:08 03/24/23 02:31 Temperature Pulse Rate 81 81 88 Respiratory Rate Blood Pressure Pulse Oximetry 96 95 Oxygen Delivery Method Oxygen Flow Rate 03/24/23 02:50 03/24/23 02:50 03/24/23 03:00 Temperature Pulse Rate 72 Respiratory Rate 14 Blood Pressure 123/62 113/58 L Pulse Oximetry 96 Oxygen Delivery Method Oxygen Flow Rate 03/24/23 03:00 03/24/23 03:30 03/24/23 03:35 Temperature Pulse Rate 72 71 Respiratory Rate 15 16 Blood Pressure 93/52 L Pulse Oximetry 97 95 Oxygen Delivery Method Oxygen Flow Rate 03/24/23 03:35 03/24/23 03:34 03/24/23 04:43 Temperature 96.5 F L Pulse Rate 71 76 Respiratory Rate 14 14 Blood Pressure 113/62 Pulse Oximetry 96 96 Oxygen Delivery Method Room Air Oxygen Flow Rate 03/24/23 04:00 03/24/23 08:00 Temperature 96.5 F L 97.2 F L Pulse Rate 76 75 Respiratory Rate 14 16 Blood Pressure 113/63 119/53 L Pulse Oximetry 96 97 Oxygen Delivery Method Oxygen Flow Rate 0 0 Oxygen Delivery Method Room Air Oxygen Flow Rate 0 Narrative Exam Narrative: GENERAL: Alert and oriented x three, elderly female in moderate distress. HEENT: Head normocephalic, atraumatic, EOMI, pupils reactive, face symmetric, moist mucous membranes NECK: Supple, full range of motion CARDIOVASCULAR: Regular rate and rhythm without murmurs, rubs or gallops.? No JVD.? No swelling bilateral lower extremities. RESPIRATORY: Breath sounds equal bilaterally, no wheezes rales or rhonchi.? No tachypnea or accessory muscle use.? ABDOMEN: Soft, some generalized tenderness.? Very scant bowel sounds all 4 quadrants.? No guarding or rebound, rigidity, no mass, no pulsatile mass or bruit.? Patient has large midline vertical incision from a previous surgery. : No CVA tenderness EXTREMITIES: Normal range of motion, no clubbing or edema. 2+ pulses bilateral lower extremities.? Neurovascularly intact NEUROLOGICAL: Cranial nerves II through XII grossly intact.? Moving all extremities SKIN: Warm, dry, no petechiae, no rashes or lesions. Objective Labs 03/24/23 01:04 03/24/23 01:04 Labs: Laboratory Results - last 24 hr 03/24/23 03/24/23 03/24/23 01:04 01:04 01:04 WBC 11.9 H RBC 4.59 Hgb 13.8 Hct 40.8 MCV 88.8 MCH 30.1 MCHC 33.8 RDW 13.5 Plt Count 237 Neut % (Auto) 78.5 H Lymph % (Auto) 17.9 L [place] % (Auto) 3.3 Eos % (Auto) 0.0 L Baso % (Auto) 0.3 Neut # (Auto) 9300 H Lymph # (Auto) 2100 [place] # (Auto) 400 Eos # (Auto) 0 Baso # (Auto) 0 Sodium 141 Potassium 3.2 L Chloride 100 Carbon Dioxide 28 BUN 23 H Creatinine 0.69 Estimated GFR > 60 BUN/Creatinine Ratio 33.3 H Glucose 214 H Lactate 3.9 H Calcium 9.7 Total Bilirubin 0.9 AST 28 ALT 22 Alkaline Phosphatase 118 Total Protein 8.4 H Albumin 4.6 Globulin 3.8 Albumin/Globulin Ratio 1.2 Lipase 131 Procalcitonin Urine Color Urine Appearance Urine pH Ur Specific [place] Urine Protein Urine Glucose (UA) Urine Ketones Urine Occult Blood Urine Nitrate Urine Bilirubin Urine Urobilinogen Ur Leukocyte Esterase Urine RBC Urine WBC Ur Squamous Epith Cells Urine Bacteria Ur Culture Indicated? 03/24/23 03/24/23 03/24/23 01:04 02:35 03:26 WBC RBC Hgb Hct MCV MCH MCHC RDW Plt Count Neut % (Auto) Lymph % (Auto) [place] % (Auto) Eos % (Auto) Baso % (Auto) Neut # (Auto) Lymph # (Auto) [place] # (Auto) Eos # (Auto) Baso # (Auto) Sodium Potassium Chloride Carbon Dioxide BUN Creatinine Estimated GFR BUN/Creatinine Ratio Glucose Lactate Cancelled Calcium Total Bilirubin AST ALT Alkaline Phosphatase Total Protein Albumin Globulin Albumin/Globulin Ratio Lipase Procalcitonin 0.04 Urine Color Yellow Urine Appearance Clear Urine pH 6.5 Ur Specific [place] 1.010 Urine Protein Negative Urine Glucose (UA) 1+ H Urine Ketones Trace H Urine Occult Blood Negative Urine Nitrate Negative Urine Bilirubin Negative Urine Urobilinogen 0.2 Ur Leukocyte Esterase 1+ H Urine RBC None seen Urine WBC 1-5/hpf Ur Squamous Epith Cells None seen Urine Bacteria None seen Ur Culture Indicated? Specimen cultured 03/24/23 03:26 WBC RBC Hgb Hct MCV MCH MCHC RDW Plt Count Neut % (Auto) Lymph % (Auto) [place] % (Auto) Eos % (Auto) Baso % (Auto) Neut # (Auto) Lymph # (Auto) [place] # (Auto) Eos # (Auto) Baso # (Auto) Sodium Potassium Chloride Carbon Dioxide BUN Creatinine Estimated GFR BUN/Creatinine Ratio Glucose Lactate 2.2 H Calcium Total Bilirubin AST ALT Alkaline Phosphatase Total Protein Albumin Globulin Albumin/Globulin Ratio Lipase Procalcitonin Urine Color Urine Appearance Urine pH Ur Specific [place] Urine Protein Urine Glucose (UA) Urine Ketones Urine Occult Blood Urine Nitrate Urine Bilirubin Urine Urobilinogen Ur Leukocyte Esterase Urine RBC Urine WBC Ur Squamous Epith Cells Urine Bacteria Ur Culture Indicated? [facility] Medical History Healthy adult Surgical History No pertinent past surgical history Social History household members: spouse and family Smoking Status: Former smoker alcohol intake: current Comment: History of Parkinson's disease treated with carbidopa-levodopa Depression treated with sertraline. 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 Treatment of glaucoma with latanoprost eyedrops. Assessment & Plan Assessment & Plan narrative: 1. SBO - NPO, NGT for suction - antiemetics, pain management, IVFs - Sx evaluating this morning for possible OR - likely adhesions from prior laparotomy 2. Parkinson's Disease - Sinemet 50/200 bid - restart postop 3. 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 Removed approximately 2013. Follow labs. Follow clinically. Determine if patient is going to the OR today. Code status: Full code DVT prophylaxis: Preop not given Surrogate decision maker: Jw Simpson, COVID-19 COVID-19 status: Not tested Time Spent With Patient Time with patient: 30 to 49 minutes with 50% spent counseling/coordinating care Quality VTE Deep Vein Thrombosis/Pulmonary Embolism Present on Admission: No MIPS - Admit I confirm the patient?s Advance Care Plan is present, Code status is documented, Surrogate decision maker is in patient?s record [If Yes, STOP here]: Yes MIPS - Meds 'Current medications' to include all prescriptions, [id number] products, herbals, cannabis/cannabidiol products, and vitamin/mineral/dietary (nutritional) supplements. I have utilized all available resources to obtain, update, or review the patient?s current medications. [If Yes, STOP here]: Yes
--- NOTE | 2023-03-24 09:47 | PC.NURSE ---
Addendum entered by Tiffanie Johnson R.N. 03/24/23 17:11: Patient complained of a headache, given ice pack. She states that this is helpful to her. Up with 2 person assist to try and have a bowel movement. Patient is unsteady and does not follow direction well when getting her back to bed. Will use bed jesus next time she needs to get up. Patient is weak. Addendum entered by Tiffanie Johnson R.N. 03/24/23 15:50: Patient was trying to make herself throw up. Explained that she has an NG tube in and that she shouldnt try to make herself sick, as this tube is helping decompress her stomach. She stated that she felt like she had acid reflux. She had maybe 10cc out. Check placement of the tube, when air put into tube, gurgle heard when auscultating placement. Patient is putting out black bile in tube from suction. She is on LIS. Patient also has a pure wick in place. She is sleeping and tolerated all of her iv potassium. Original Note: Patient is alert and oriented x4, she is sleepy from pain medication given earlier. She has an NG tube to LIS with brownish biled colored output. Bowel tones are hypoactive x4. She will be getting some iv potassium replacement through her iv. Resting comfortably.
[2023-03-24] MEDS: POTASSIUM CHLORIDE IN WATER 10 MEQ/100 ML PIGGYBACK 100 MEQ IV ×2 (09:57→11:21)
--- NOTE | 2023-03-24 10:33 | CM.DANOTE ---
Initial Discharge Assessment Note: Case reviewed, met with patient who is feeling weak and fatigued. Introduced self and role. Payer: [facility] [employer] PCP: Dr Laney Damon 82 year old female with Parkinson's disease admitted with c/o of abdominal pain and diagnosed with SBO. History of laparotomy for tumor excision about 10 years ago per notes. Surgical consult, probable adhesions and possible OR today. NG tube intact to suction. Patient lives with spouse in [place]. She states that she works 5 days a week, 4 hours a day at [employer]. She is independent in her ADLs. Spouse will be in later today. PLAN: Possible OR today. Continue evaluating for discharge needs. MADDY Discharge Planning/Care Management CM Discharge Assessment Start: 03/24/23 10:30 Freq: Status: Active Protocol: Document 03/24/23 10:30 (Rec: 03/24/23 10:32 [id number]) Discharge Planning Assessment Assigned Order Checker Packer Processer Dipti Martin RN/DCP Advance Directives? No History Provided By Patient,Family Member Prior Living Arrangements House Comment Household members include spouse, son (Junaid), his fiance (Maite), and fiance' s two children (12yrs and 8yrs old) Household Members spouse,family Type of transporation used prior to Drives own vehicle admit Independent with ADL's Yes: Patient works 4 hours a day x 5 days at [employer] Is patient alert and oriented? Yes Caregiver for Another No Barriers to Discharge No Discharge Plan Home Transportation Arrangement Spouse Additional Comment To be determined, possible OR today Review Status In Process Next Review Type Continued Stay Review
--- NOTE | 2023-03-24 11:49 | PM.CN ---
History of Present Illness Consult details Date Patient Seen: 03/24/23 Time Patient Seen: 11:50 Chief complaint: abd/back pain Narrative: 82-year-old woman who presented last night with sudden onset of abdominal pain, distention, nausea and vomiting. A CT scan in the ER was consistent with a small-bowel obstruction. 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 She has never had a bowel obstruction before. She reports that she is not currently passing any flatus. An NG tube has been placed. Meds Home Medications and Allergies Home Medications Medication Instructions Recorded Confirmed Type latanoprost 0.005 % eye drops 1 drp EYE-BOTH BEDTIME 05/04/18 03/24/23 History carbidopa ER 50 mg-levodopa 200 mg 1 tab PO BID 03/24/23 03/24/23 History tablet,extended release sertraline 50 mg tablet 50 mg PO DAILY 03/24/23 03/24/23 History Allergies Allergy/AdvReac Type Severity Reaction Status Date / Time Penicillins Allergy Unknown Verified 03/24/23 01:10 Exam Vital Signs (past 8 hours): - 03/24/23 04:43 03/24/23 04:00 03/24/23 08:00 Temperature 96.5 F L 97.2 F L Pulse Rate 76 75 Respiratory Rate 14 16 Blood Pressure 113/63 119/53 L Pulse Oximetry 96 97 Oxygen Delivery Method Room Air Oxygen Flow Rate 0 0 Oxygen Delivery Method Room Air Oxygen Flow Rate 0 Narrative Exam Narrative: Abdomen soft No peritonitis Midline surgical scar from prior laparotomy Objective Labs 03/24/23 01:04 03/24/23 01:04 Labs: Laboratory Results - last 24 hr 03/24/23 03/24/23 03/24/23 01:04 01:04 01:04 WBC 11.9 H RBC 4.59 Hgb 13.8 Hct 40.8 MCV 88.8 MCH 30.1 MCHC 33.8 RDW 13.5 Plt Count 237 Neut % (Auto) 78.5 H Lymph % (Auto) 17.9 L [place] % (Auto) 3.3 Eos % (Auto) 0.0 L Baso % (Auto) 0.3 Neut # (Auto) 9300 H Lymph # (Auto) 2100 [place] # (Auto) 400 Eos # (Auto) 0 Baso # (Auto) 0 Sodium 141 Potassium 3.2 L Chloride 100 Carbon Dioxide 28 BUN 23 H Creatinine 0.69 Estimated GFR > 60 BUN/Creatinine Ratio 33.3 H Glucose 214 H Lactate 3.9 H Calcium 9.7 Total Bilirubin 0.9 AST 28 ALT 22 Alkaline Phosphatase 118 Total Protein 8.4 H Albumin 4.6 Globulin 3.8 Albumin/Globulin Ratio 1.2 Lipase 131 Procalcitonin Urine Color Urine Appearance Urine pH Ur Specific Glennie Urine Protein Urine Glucose (UA) Urine Ketones Urine Occult Blood Urine Nitrate Urine Bilirubin Urine Urobilinogen Ur Leukocyte Esterase Urine RBC Urine WBC Ur Squamous Epith Cells Urine Bacteria Ur Culture Indicated? 03/24/23 03/24/23 03/24/23 01:04 02:35 03:26 WBC RBC Hgb Hct MCV MCH MCHC RDW Plt Count Neut % (Auto) Lymph % (Auto) [place] % (Auto) Eos % (Auto) Baso % (Auto) Neut # (Auto) Lymph # (Auto) [place] # (Auto) Eos # (Auto) Baso # (Auto) Sodium Potassium Chloride Carbon Dioxide BUN Creatinine Estimated GFR BUN/Creatinine Ratio Glucose Lactate Cancelled Calcium Total Bilirubin AST ALT Alkaline Phosphatase Total Protein Albumin Globulin Albumin/Globulin Ratio Lipase Procalcitonin 0.04 Urine Color Yellow Urine Appearance Clear Urine pH 6.5 Ur Specific Glennie 1.010 Urine Protein Negative Urine Glucose (UA) 1+ H Urine Ketones Trace H Urine Occult Blood Negative Urine Nitrate Negative Urine Bilirubin Negative Urine Urobilinogen 0.2 Ur Leukocyte Esterase 1+ H Urine RBC None seen Urine WBC 1-5/hpf Ur Squamous Epith Cells None seen Urine Bacteria None seen Ur Culture Indicated? Specimen cultured 03/24/23 03:26 WBC RBC Hgb Hct MCV MCH MCHC RDW Plt Count Neut % (Auto) Lymph % (Auto) [place] % (Auto) Eos % (Auto) Baso % (Auto) Neut # (Auto) Lymph # (Auto) [place] # (Auto) Eos # (Auto) Baso # (Auto) Sodium Potassium Chloride Carbon Dioxide BUN Creatinine Estimated GFR BUN/Creatinine Ratio Glucose Lactate 2.2 H Calcium Total Bilirubin AST ALT Alkaline Phosphatase Total Protein Albumin Globulin Albumin/Globulin Ratio Lipase Procalcitonin Urine Color Urine Appearance Urine pH Ur Specific [place]ie Urine Protein Urine Glucose (UA) Urine Ketones Urine Occult Blood Urine Nitrate Urine Bilirubin Urine Urobilinogen Ur Leukocyte Esterase Urine RBC Urine WBC Ur Squamous Epith Cells Urine Bacteria Ur Culture Indicated? [facility] Medical History (Updated 03/24/23 @ 11:51 by Reece Renee MD) Healthy adult Surgical History No pertinent past surgical history Social History household members: spouse and family Tobacco & Substance Use Smoking Status: Former smoker alcohol intake: current Assessment & Plan Assessment and plan (1) Small bowel obstruction: Status: Acute Plan 82-year-old woman with a small-bowel obstruction, most likely adhesive in nature. Recommend NG tube decompression today. If no improvement by tomorrow morning we would move onto a Gastrografin challenge. If she passes flatus we can start to deescalate. Surgery for a small-bowel obstruction would be reserved for failure of conservative measures or development of peritonitis or sepsis.
[2023-03-24] MEDS: POTASSIUM CHLORIDE IN WATER 10 MEQ/100 ML PIGGYBACK 75 MEQ IV ×2 (12:40→14:04)
[2023-03-24] MEDS: ONDANSETRON 4 MG ODT PO (14:14)
[2023-03-25] VITALS (7 sets, daily range): BP systolic 116–148; BP diastolic 63–71; PULSE 73–86; RESP 16–18; TEMP 36.2–37.1; O2SAT 92–97
[2023-03-25] MEDS: ONDANSETRON 4 MG/2 ML INJ IV (04:10)
[2023-03-25] MEDS: HYDROMORPHONE 0.5 MG INJ IV (04:10)
[2023-03-25 06:08] LABS: Blood Urea Nitrogen 52 mg/dL (7-17); Calcium 8.4 mg/dL (8.4-10.2); Carbon Dioxide 22 mmol/L (22-32); Chloride 106 mmol/L (98-107); Estimated Glomerular Filt Rate 22 mL/min (>60); Glucose 161 mg/dL (80-110); HEMOLYSIS < 15 (0-50); Sodium 137 mmol/L (137-145)
[2023-03-25 06:13] LABS: Potassium 5.8 mmol/L (3.4-5.1)
[2023-03-25 06:17] LABS: Add Manual Diff / Slide Review NO; Basophils Absolute Auto 0 /uL (0-100); Basophils Percent Auto 0.1 % (0-2); Eosinophils Absolute Auto 0 /uL (0-450); Hematocrit 40.8 % (36-46); Hemoglobin 13.8 g/dL (12.0-16.0); Lymphocytes Absolute Auto 1200 /uL (1100-4500); Lymphocytes Percent Auto 5.1 % (25-40); Mean Corpuscular Hemoglobin 30.2 PG (26-34); Mean Corpuscular Volume 88.8 fL (80-100); Monocytes Absolute Auto 1800 /uL (0-900); Monocytes Percent Auto 7.7 % (3-14); Neutrophils Absolute Auto 20000 /uL (1500-7000); Neutrophils Percent Auto 87.1 % (50-75); Platelet Count 189 X10^3/uL (150-400); Red Blood Cell Count 4.59 X10^6/uL (4.0-5.2); Red Cell Distribution Width 14.1 % (11.6-14.8)
[2023-03-25] MEDS: LACTATED RINGERS 1,000 ML 100 ML IV ×2 (06:44→16:04)
[2023-03-25] MEDS: SODIUM CHLORIDE 0.9% 1,000 ML 250 ML IV ×2 (07:59→12:14)
--- NOTE | 2023-03-25 08:08 | PM.PN.1 ---
Subjective Subjective Interval history: Patient feeling better today. Not complaining of the abdominal pain. Is passing some gas. Exam Vital Signs (past 8 hours): - 03/25/23 00:28 03/25/23 03:57 Temperature 97.1 F L 97.2 F L Pulse Rate 86 83 Respiratory Rate 16 16 Blood Pressure 116/63 118/69 Pulse Oximetry 95 94 Oxygen Flow Rate 0 0 Oxygen Delivery Method Room Air Oxygen Flow Rate 0 Narrative Exam Narrative: GENERAL: Alert and oriented x three, in no acute medical distress HEENT: Head normocephalic, atraumatic, EOMI, pupils reactive, NECK: Supple, full range of motion CARDIOVASCULAR: Regular rate and rhythm without murmurs, rubs or gallops.? No JVD.? No swelling bilateral lower extremities. RESPIRATORY: Breath sounds equal bilaterally, no wheezes rales or rhonchi.? No tachypnea or accessory muscle use.? EXTREMITIES: Normal range of motion, no clubbing or edema. 2+ pulses bilateral lower extremities.? Neurovascularly intact NEUROLOGICAL: Cranial nerves II through XII grossly intact.? Normal sensation of all extremities. Objective Labs 03/25/23 05:28 03/25/23 05:28 Labs: Laboratory Results - last 24 hr 03/25/23 03/25/23 05:28 05:28 WBC 23.0 H D RBC 4.59 Hgb 13.8 Hct 40.8 MCV 88.8 MCH 30.2 MCHC 34.0 RDW 14.1 Plt Count 189 Neut % (Auto) 87.1 H Lymph % (Auto) 5.1 L [place] % (Auto) 7.7 Eos % (Auto) 0.0 L Baso % (Auto) 0.1 Neut # (Auto) 92595 H Lymph # (Auto) 1200 [place] # (Auto) 1800 H Eos # (Auto) 0 Baso # (Auto) 0 Sodium 137 Potassium 5.8 H D Chloride 106 Carbon Dioxide 22 BUN 52 H Creatinine 2.17 H Estimated GFR 22 L BUN/Creatinine Ratio 24.0 H Glucose 161 H Calcium 8.4 PFSH Medical History (Updated 03/24/23 @ 11:51 by Reece Renee MD) Healthy adult Surgical History No pertinent past surgical history Social History household members: spouse and family Smoking Status: Former smoker alcohol intake: current Assessment & Plan Assessment & Plan narrative: 1. SBO - NPO, NGT for suction - antiemetics, pain management, IVFs - will bolus this morning due to creatinine increased to 2.17 and BUN elevated to 52, patient also complaining that her mouth feels very dry. Bolus 1 L of normal saline over 4 hours, then resume Ringer's lactate at 100 per hour - likely adhesions from prior laparotomy -no planned surgery at this time 2. Parkinson's Disease - Sinemet 50/200 bid - restart when can take oral medication 3. 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 6. Elevated white blood count (23.0), elevated potassium, elevated creatinine -remeasure after intravenous bolus of 1 L of normal saline. Follow labs.? Follow clinically.? Code status:? Full code DVT prophylaxis:? No plans surgery at this time we will initiate with heparin so that reversal is possible if possible surgery. Heparin 5000 units subQ b.i.d. Surrogate decision maker:? Jw Simpson, Quality VTE Deep Vein Thrombosis/Pulmonary Embolism Present on Admission: No
--- NOTE | 2023-03-25 08:18 | PC.NURSE ---
Addendum entered by Tiffanie Johnson R.N. 03/25/23 16:10: Patients NG tube taken out, she tolerated this well. She is tolerating a few ice chips now. in room and visiting. Patient has been a bit confused today. Turned onto her r.side and resting. Original Note: Patient is alert and oriented this morning. She has NS infusing at 250cc/hr. Patients urine output low. She states that she feels a bit better today and is asking for water. Explained to patient that she is npo, will talk to Dr about ice chips. Bt are hypoactive x4, She is resting now. NG to LIS with bile colored drainage in tube. Patient resting now.
[2023-03-25 08:26] LABS: Add Manual Diff / Slide Review NO; Basophils Absolute Auto 0 /uL (0-100); Basophils Percent Auto 0.1 % (0-2); Eosinophils Absolute Auto 0 /uL (0-450); Hematocrit 40.2 % (36-46); Hemoglobin 13.5 g/dL (12.0-16.0); Lymphocytes Absolute Auto 1500 /uL (1100-4500); Lymphocytes Percent Auto 6.5 % (25-40); Mean Corpuscular HGB Conc 33.5 % (30-36); Mean Corpuscular Hemoglobin 30.2 PG (26-34); Mean Corpuscular Volume 90.1 fL (80-100); Monocytes Absolute Auto 1700 /uL (0-900); Monocytes Percent Auto 7.5 % (3-14); Neutrophils Absolute Auto 19900 /uL (1500-7000); Neutrophils Percent Auto 85.9 % (50-75); Platelet Count 203 X10^3/uL (150-400); Red Blood Cell Count 4.46 X10^6/uL (4.0-5.2); Red Cell Distribution Width 14.2 % (11.6-14.8); White Blood Cell Count 23.1 X10^3/uL (4.5-11.0)
[2023-03-25 08:38] LABS: BUN Creatinine Ratio 25.2 (6-22); Blood Urea Nitrogen 55 mg/dL (7-17); Calcium 8.3 mg/dL (8.4-10.2); Carbon Dioxide 25 mmol/L (22-32); Chloride 105 mmol/L (98-107); Estimated Glomerular Filt Rate 22 mL/min (>60); Glucose 162 mg/dL (80-110); HEMOLYSIS 19 (0-50); Potassium 5.2 mmol/L (3.4-5.1); Sodium 138 mmol/L (137-145)
[2023-03-25] MEDS: HEPARIN 5,000 UNIT/ML VIAL 5000 UNIT SUBCUT ×2 (09:56→19:58)
--- NOTE | 2023-03-25 10:51 | P.PN_ITS ---
Subjective Subjective Date Patient Seen: 03/25/23 Time Patient Seen: 10:51 Interval history: Kajal feels somewhat better today. She has passed some flatus. Exam Vital Signs (past 8 hours): - 03/25/23 03:57 03/25/23 08:00 Temperature 97.2 F L 97.7 F Pulse Rate 83 83 Respiratory Rate 16 18 Blood Pressure 118/69 119/64 Pulse Oximetry 94 92 Oxygen Flow Rate 0 0 Oxygen Delivery Method Room Air Oxygen Flow Rate 0 Narrative Exam Narrative: Abdomen soft, nontender Objective Labs 03/25/23 08:10 03/25/23 08:10 Labs: Laboratory Results - last 24 hr 03/25/23 03/25/23 03/25/23 05:28 05:28 08:10 WBC 23.0 H D 23.1 H RBC 4.59 4.46 Hgb 13.8 13.5 Hct 40.8 40.2 MCV 88.8 90.1 MCH 30.2 30.2 MCHC 34.0 33.5 RDW 14.1 14.2 Plt Count 189 203 Neut % (Auto) 87.1 H 85.9 H Lymph % (Auto) 5.1 L 6.5 L [place] % (Auto) 7.7 7.5 Eos % (Auto) 0.0 L 0.0 L Baso % (Auto) 0.1 0.1 Neut # (Auto) 61847 H 44344 H Lymph # (Auto) 1200 1500 [place] # (Auto) 1800 H 1700 H Eos # (Auto) 0 0 Baso # (Auto) 0 0 Sodium 137 Potassium 5.8 H D Chloride 106 Carbon Dioxide 22 BUN 52 H Creatinine 2.17 H Estimated GFR 22 L BUN/Creatinine Ratio 24.0 H Glucose 161 H Calcium 8.4 03/25/23 08:10 WBC RBC Hgb Hct MCV MCH MCHC RDW Plt Count Neut % (Auto) Lymph % (Auto) [place] % (Auto) Eos % (Auto) Baso % (Auto) Neut # (Auto) Lymph # (Auto) [place] # (Auto) Eos # (Auto) Baso # (Auto) Sodium 138 Potassium 5.2 H Chloride 105 Carbon Dioxide 25 BUN 55 H Creatinine 2.18 H Estimated GFR 22 L BUN/Creatinine Ratio 25.2 H Glucose 162 H Calcium 8.3 L [facility] Medical History (Updated 03/24/23 @ 11:51 by Reece Renee MD) Healthy adult Surgical History No pertinent past surgical history Social History household members: spouse and family Smoking Status: Former smoker alcohol intake: current Assessment & Plan Assessment and plan (1) Small bowel obstruction: Status: Acute Plan If she continues to pass flatus we will remove the NG tube later today. Quality VTE Deep Vein Thrombosis/Pulmonary Embolism Present on Admission: No
--- NOTE | 2023-03-25 14:11 | CM.DPC ---
DCP Continued: DATA TECHNICAL LEAD reviewed EMR. Per provider in rounds, patient is clinically doing better today. Provider reports likely no needs from CM team. DATA TECHNICAL LEAD attempted to speak with patient to check in. Patient was sleeping soundly and unable to be roused. DATA TECHNICAL LEAD spoke with nursing staff. Nursing staff reports and son are at home with patient and are good contacts for d/c planning/we have permission to speak with them. DATA TECHNICAL LEAD lvm with spouse to check in that family has no needs upon d/c. Plan: d/c home with supportive family when medically stable. CM Team will continue to follow closely. CHIKIS Kerns
[2023-03-25] MEDS: CARBIDOPA-LEVODOPA ER 50/200 TABLET 1 EACH PO (17:16)
[2023-03-25 18:11] LABS: Add Manual Diff / Slide Review NO; Basophils Absolute Auto 0 /uL (0-100); Basophils Percent Auto 0.1 % (0-2); Eosinophils Absolute Auto 0 /uL (0-450); Hematocrit 36.8 % (36-46); Hemoglobin 12.4 g/dL (12.0-16.0); Lymphocytes Absolute Auto 1300 /uL (1100-4500); Lymphocytes Percent Auto 6.1 % (25-40); Mean Corpuscular HGB Conc 33.7 % (30-36); Mean Corpuscular Volume 89.1 fL (80-100); Monocytes Absolute Auto 1700 /uL (0-900); Monocytes Percent Auto 8.2 % (3-14); Neutrophils Absolute Auto 17700 /uL (1500-7000); Neutrophils Percent Auto 85.6 % (50-75); Platelet Count 200 X10^3/uL (150-400); Red Blood Cell Count 4.13 X10^6/uL (4.0-5.2); White Blood Cell Count 20.6 X10^3/uL (4.5-11.0)
[2023-03-25 18:27] LABS: Alanine Aminotransferase 12 IU/L (<35); BUN Creatinine Ratio 27.6 (6-22); Blood Urea Nitrogen 59 mg/dL (7-17); Calcium 8.1 mg/dL (8.4-10.2); Carbon Dioxide 24 mmol/L (22-32); Chloride 107 mmol/L (98-107); Estimated Glomerular Filt Rate 23 mL/min (>60); Glucose 140 mg/dL (80-110); HEMOLYSIS < 15 (0-50); Sodium 138 mmol/L (137-145)
[2023-03-25 19:23] LABS: Hepatitis B Surface Antigen NEGATIVE s/c (NEGATIVE)
[2023-03-25 19:39] LABS: HIV 1 & 2 Ab/Ag 4th Gen Combo NEGATIVE (NEGATIVE); Hep C Virus Ab w/Reflex Quant NEGATIVE s/c (NEGATIVE)
[2023-03-25] MEDS: LATANOPROST 0.005% OPHTH 2.5 ML 1 DROPS EYE-BOTH (20:03)
[2023-03-25] MEDS: SERTRALINE 50 MG TABLET PO (20:03)
[2023-03-25] MEDS: cefTRIAXone 2,000 MG in SODIUM CHLORIDE 0.9% 100 ML 200 MG IV (21:47)
[2023-03-26] VITALS (16 sets, daily range): BP systolic 117–142; BP diastolic 57–78; PULSE 65–89; RESP 12–18; TEMP 36–37.6; O2SAT 90–97; BMI 22.6
--- NOTE | 2023-03-26 | PATH_ITS ---
[facility] Accession Number: [id number] No. of containers..01 Tissue . 01 Material submitted: . small bowel - SMALL BOWEL . 01 Diagnosis: Small Bowel, Segmental Resection: Segment of small bowel with transmural suppurative inflammation, serositis, and features of mucosal ischemia. Five benign mesenteric lymph nodes. Histologically viable margins of resection. No evidence of neoplasm. MRV 04/01/2023 1718 Local . 01 Electronically signed: . Bryce Reynoso MD, PhD, Pathologist NPI- [id number] . 01 Gross description: . The specimen is received in formalin labeled with the patient's name, , and small bowel, and consists of an unoriented segment of diffusely congested small bowel measuring 76.5 cm in length by 2.4 cm in average diameter with mesentery extending out to 5.6 cm. One staple line is inked blue, the opposite staple line is inked black, and the mesenteric margin is inked green. The serosa is intact and diffusely roughened and congested with no areas of puckering grossly identified. The mucosa is red-brown and velvety with a diffuse amount of villeda adherent material consistent with exudate taking on a sheet-like consistency across approximately 20% of the mucosal surface. No polyps or lesions are identified and the dodd average 0.4 cm thick. Palpation of the mesentery reveals five red-brown lymph node candidates ranging from 0.5 to 1.1 cm in greatest dimension. Physicians Assistant sections are submitted as follows: A1: Physicians Assistant margins en face. A2-A3: Full thickness sections to include area with sheet-like exudate. A4: Three intact lymph node candidates. A5: Two intact lymph node candidates. ([id number]) /[place]LEY 03/28/2023 0949 Local . 01 Pathologist provided ICD-10: K55.9 . 01 CPT . 322014 Specimen Comment: A courtesy copy of this report has been sent to [phone] Performed at: 01 [facility] [address] [place] [address], [place], [place] [id number] MD Wilfredo Esposito MD Phone: [phone]
--- NOTE | 2023-03-26 | DI.RAD.S_ITS ---
PROCEDURE: XR CHEST 1V INDICATIONS: NG TUBE PLACEMENT TECHNIQUE: One view of the chest was acquired. COMPARISON: [facility], CR, XR ABDOMEN 1V, 03/24/2023, 3:23. FINDINGS: Surgical changes and devices: Nasogastric tube has been mildly advanced with the distal tip quell within the left upper quadrant in the presumed location of the stomach. Lungs and pleura: Study was tailored for evaluation of nasogastric tube placement. The lungs are not well visualized secondary to imaging technique. Suggestion of patchy bibasilar opacities and possible small bilateral pleural effusions. Mediastinum: Mediastinal contours appear normal. Heart size is normal. Bones and chest wall: No suspicious bony lesions. Overlying soft tissues appear unremarkable. IMPRESSION: Nasogastric tube is in place and appears to be coiled within the expected location of the stomach. Dictated by: Gabriel Ortiz M.D. on 03/26/2023 at 13:36 Approved by: Gabriel Ortiz M.D. on 03/26/2023 at 13:37
[2023-03-26] MEDS: LACTATED RINGERS 1,000 ML 100 ML IV ×4 (02:47→23:15)
[2023-03-26 05:26] LABS: Add Manual Diff / Slide Review NO; Basophils Absolute Auto 0 /uL (0-100); Eosinophils Absolute Auto 0 /uL (0-450); Hematocrit 35.5 % (36-46); Hemoglobin 11.9 g/dL (12.0-16.0); Lymphocytes Absolute Auto 1100 /uL (1100-4500); Lymphocytes Percent Auto 6.9 % (25-40); Mean Corpuscular HGB Conc 33.6 % (30-36); Mean Corpuscular Hemoglobin 29.8 PG (26-34); Mean Corpuscular Volume 88.7 fL (80-100); Monocytes Absolute Auto 1600 /uL (0-900); Neutrophils Absolute Auto 13800 /uL (1500-7000); Neutrophils Percent Auto 83.1 % (50-75); Platelet Count 161 X10^3/uL (150-400); Red Blood Cell Count 4.01 X10^6/uL (4.0-5.2); Red Cell Distribution Width 14.3 % (11.6-14.8); White Blood Cell Count 16.6 X10^3/uL (4.5-11.0)
[2023-03-26 06:35] LABS: BUN Creatinine Ratio 44.7 (6-22); Blood Urea Nitrogen 63 mg/dL (7-17); Calcium 8.2 mg/dL (8.4-10.2); Carbon Dioxide 26 mmol/L (22-32); Chloride 107 mmol/L (98-107); Estimated Glomerular Filt Rate 37 mL/min (>60); Glucose 140 mg/dL (80-110); HEMOLYSIS 35 (0-50); Potassium 4.8 mmol/L (3.4-5.1); Sodium 137 mmol/L (137-145)
[2023-03-26] MEDS: CARBIDOPA-LEVODOPA ER 50/200 TABLET 1 EACH PO (09:43)
[2023-03-26] MEDS: HEPARIN 5,000 UNIT/ML VIAL 5000 UNIT SUBCUT (09:43)
--- NOTE | 2023-03-26 11:25 | PC.NURSE ---
Addendum entered by Armaan Kim R.N. 03/26/23 14:58: Ng out put 260. [email or web address] output 420. IV HL'd. Pt readied for transfer down to surgery. , son and son's girlfriend now in pre-op with Pt. Original Note: NG continues out at present time and Pt is returned to NPO with occasional ice chips per Dr. Wilkins. Pt experiencing some nausea and intermittent small emesis.
--- NOTE | 2023-03-26 11:42 | PM.PN.1 ---
Subjective Subjective Date Patient Seen: 03/26/23 Time Patient Seen: 11:42 Interval history: Kajal. Passing flatus. She feels uncomfortable and she has vomited some dark bilious for this morning. Exam Vital Signs (past 8 hours): - 03/26/23 08:00 Temperature 97.6 F Pulse Rate 81 Respiratory Rate 16 Blood Pressure 126/67 Pulse Oximetry 96 Oxygen Flow Rate 0 Oxygen Delivery Method Room Air Oxygen Flow Rate 0 Narrative Exam Narrative: Abdomen soft moderately tender without peritoneal signs Objective Labs 03/26/23 04:54 03/26/23 06:11 Labs: Laboratory Results - last 24 hr 03/25/23 03/25/23 03/25/23 17:56 17:56 17:56 WBC 20.6 H RBC 4.13 Hgb 12.4 Hct 36.8 MCV 89.1 MCH 30.0 MCHC 33.7 RDW 14.0 Plt Count 200 Neut % (Auto) 85.6 H Lymph % (Auto) 6.1 L [place] % (Auto) 8.2 Eos % (Auto) 0.0 L Baso % (Auto) 0.1 Neut # (Auto) 17824 H Lymph # (Auto) 1300 [place] # (Auto) 1700 H Eos # (Auto) 0 Baso # (Auto) 0 Sodium 138 Potassium 5.0 Chloride 107 Carbon Dioxide 24 BUN 59 H Creatinine 2.14 H Estimated GFR 23 L BUN/Creatinine Ratio 27.6 H Glucose 140 H Calcium 8.1 L ALT 12 Hep Bs Antigen Hepatitis C Antibody HIV 1&2 Ab/P24 Ag 4thGn 03/25/23 03/26/23 03/26/23 17:56 04:54 06:11 WBC 16.6 H RBC 4.01 Hgb 11.9 L Hct 35.5 L MCV 88.7 MCH 29.8 MCHC 33.6 RDW 14.3 Plt Count 161 Neut % (Auto) 83.1 H Lymph % (Auto) 6.9 L [place] % (Auto) 10.0 Eos % (Auto) 0.0 L Baso % (Auto) 0.0 Neut # (Auto) 49418 H Lymph # (Auto) 1100 [place] # (Auto) 1600 H Eos # (Auto) 0 Baso # (Auto) 0 Sodium 137 Potassium 4.8 Chloride 107 Carbon Dioxide 26 BUN 63 H Creatinine 1.41 H Estimated GFR 37 L BUN/Creatinine Ratio 44.7 H Glucose 140 H Calcium 8.2 L ALT Hep Bs Antigen Negative Hepatitis C Antibody Negative HIV 1&2 Ab/P24 Ag 4thGn Negative PFSH Medical History (Updated 03/24/23 @ 11:51 by Reece Renee MD) Healthy adult Surgical History No pertinent past surgical history Social History household members: spouse and family Smoking Status: Former smoker alcohol intake: current Assessment & Plan Assessment and plan (1) Small bowel obstruction: Status: Acute Plan Unfortunately she will need to have the NG tube replaced. Once the NG tube is in place will start a Gastrografin challenge. If the Gastrografin challenge does not open up the bowel obstruction we will need to proceed to the operating room for exploratory laparotomy and possible lysis of the patient's. Quality VTE Deep Vein Thrombosis/Pulmonary Embolism Present on Admission: No
--- NOTE | 2023-03-26 12:37 | PC.NURSE ---
NG tube 14F NG tube inserted into R nares and secured at 77cm. Tube to intermittent suction quickly returned 175cc coffee ground drainage. pt educated about maintaining HOB at 30 degrees or greater. Supportive spouse at bedside. into see pt.
--- NOTE | 2023-03-26 14:54 | PM.PN.1 ---
Subjective Subjective Interval history: Return of nausea and vomiting this morning. NG tube replaced this afternoon, possible OR this evening. Exam Vital Signs (past 8 hours): - 03/26/23 08:00 03/26/23 11:58 Temperature 97.6 F 98.0 F Pulse Rate 81 74 Respiratory Rate 16 16 Blood Pressure 126/67 127/60 Pulse Oximetry 96 95 Oxygen Flow Rate 0 0 Oxygen Delivery Method Room Air Oxygen Flow Rate 0 Narrative Exam Narrative: GENERAL: Elderly female, acutely ill appearing, slightly lethargic HEENT: Head normocephalic, atraumatic, EOMI, pupils reactive, NECK: Supple, full range of motion CARDIOVASCULAR: Regular rate and rhythm without murmurs, rubs or gallops.? No JVD.? No swelling bilateral lower extremities. RESPIRATORY: Breath sounds equal bilaterally, no wheezes rales or rhonchi.? No tachypnea or accessory muscle use.? EXTREMITIES: Normal range of motion, no clubbing or edema NEUROLOGICAL: Cranial nerves II through XII grossly intact.? Normal sensation of all extremities. Objective Labs 03/26/23 04:54 03/26/23 06:11 Labs: Laboratory Results - last 24 hr 03/25/23 03/25/23 03/25/23 17:56 17:56 17:56 WBC 20.6 H RBC 4.13 Hgb 12.4 Hct 36.8 MCV 89.1 MCH 30.0 MCHC 33.7 RDW 14.0 Plt Count 200 Neut % (Auto) 85.6 H Lymph % (Auto) 6.1 L [place] % (Auto) 8.2 Eos % (Auto) 0.0 L Baso % (Auto) 0.1 Neut # (Auto) 73399 H Lymph # (Auto) 1300 [place] # (Auto) 1700 H Eos # (Auto) 0 Baso # (Auto) 0 Sodium 138 Potassium 5.0 Chloride 107 Carbon Dioxide 24 BUN 59 H Creatinine 2.14 H Estimated GFR 23 L BUN/Creatinine Ratio 27.6 H Glucose 140 H Calcium 8.1 L ALT 12 Hep Bs Antigen Hepatitis C Antibody HIV 1&2 Ab/P24 Ag 4thGn 03/25/23 03/26/23 03/26/23 17:56 04:54 06:11 WBC 16.6 H RBC 4.01 Hgb 11.9 L Hct 35.5 L MCV 88.7 MCH 29.8 MCHC 33.6 RDW 14.3 Plt Count 161 Neut % (Auto) 83.1 H Lymph % (Auto) 6.9 L [place] % (Auto) 10.0 Eos % (Auto) 0.0 L Baso % (Auto) 0.0 Neut # (Auto) 17229 H Lymph # (Auto) 1100 [place] # (Auto) 1600 H Eos # (Auto) 0 Baso # (Auto) 0 Sodium 137 Potassium 4.8 Chloride 107 Carbon Dioxide 26 BUN 63 H Creatinine 1.41 H Estimated GFR 37 L BUN/Creatinine Ratio 44.7 H Glucose 140 H Calcium 8.2 L ALT Hep Bs Antigen Negative Hepatitis C Antibody Negative HIV 1&2 Ab/P24 Ag 4thGn Negative PFSH Medical History (Updated 03/24/23 @ 11:51 by Reece Renee MD) Healthy adult Surgical History No pertinent past surgical history Social History household members: spouse and family Smoking Status: Former smoker alcohol intake: current Assessment & Plan Assessment & Plan narrative: 1. SBO, likely secondary to adhesions -Failed trial of clears after NG tube removed yesterday, replaced today, possible OR this evening -appreciate general surgery consultation and management. 2. Parkinson's Disease - Sinemet 50/200 bid - restart when can take oral medication 3. 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 6. Leukocytosis, improving - likely reactive to bowel obstruction and in part dehydration as well. - continue IV fluids. 7. CAROLIN , improved - secondary to dehydration and SBO. Continue IV fluids. Creatinine 2.18 improved to 1.41 today. Code status:? Full code DVT prophylaxis:? No plans surgery at this time we will initiate with heparin so that reversal is possible if possible surgery. Heparin 5000 units subQ b.i.d. Surrogate decision maker:? Jw Simpson, Dispo: remains inpatient, discharge timing and location dependent on if surgery needed, and if so likely will need therapy evaluations. Timing also clear but likely multiple days. Additional history obtained via bedside staff, I have reviewed patients lab and imaging findings personally and prior provider's documentation. Discussed with care management team. Quality VTE Deep Vein Thrombosis/Pulmonary Embolism Present on Admission: No
--- NOTE | 2023-03-26 15:31 | P.PN_ITS ---
Subjective Subjective Date Patient Seen: 03/26/23 Time Patient Seen: 15:32 Interval history: Increased nausea and vomiting and abdominal pain today. NG tube was replaced. Exam Vital Signs (past 8 hours): - 03/26/23 08:00 03/26/23 11:58 03/26/23 15:15 Temperature 97.6 F 98.0 F 99.7 F H Pulse Rate 81 74 80 Respiratory Rate 16 16 16 Blood Pressure 126/67 127/60 126/66 Pulse Oximetry 96 95 92 Oxygen Delivery Method Room Air Oxygen Flow Rate 0 0 Oxygen Delivery Method Room Air Oxygen Flow Rate 0 Narrative Exam Narrative: Soft, tender, no peritonitis, distended Objective Labs 03/26/23 04:54 03/26/23 06:11 Labs: Laboratory Results - last 24 hr 03/25/23 03/25/23 03/25/23 17:56 17:56 17:56 WBC 20.6 H RBC 4.13 Hgb 12.4 Hct 36.8 MCV 89.1 MCH 30.0 MCHC 33.7 RDW 14.0 Plt Count 200 Neut % (Auto) 85.6 H Lymph % (Auto) 6.1 L [place] % (Auto) 8.2 Eos % (Auto) 0.0 L Baso % (Auto) 0.1 Neut # (Auto) 30010 H Lymph # (Auto) 1300 [place] # (Auto) 1700 H Eos # (Auto) 0 Baso # (Auto) 0 Sodium 138 Potassium 5.0 Chloride 107 Carbon Dioxide 24 BUN 59 H Creatinine 2.14 H Estimated GFR 23 L BUN/Creatinine Ratio 27.6 H Glucose 140 H Calcium 8.1 L ALT 12 Hep Bs Antigen Hepatitis C Antibody HIV 1&2 Ab/P24 Ag 4thGn 03/25/23 03/26/23 03/26/23 17:56 04:54 06:11 WBC 16.6 H RBC 4.01 Hgb 11.9 L Hct 35.5 L MCV 88.7 MCH 29.8 MCHC 33.6 RDW 14.3 Plt Count 161 Neut % (Auto) 83.1 H Lymph % (Auto) 6.9 L [place] % (Auto) 10.0 Eos % (Auto) 0.0 L Baso % (Auto) 0.0 Neut # (Auto) 01537 H Lymph # (Auto) 1100 [place] # (Auto) 1600 H Eos # (Auto) 0 Baso # (Auto) 0 Sodium 137 Potassium 4.8 Chloride 107 Carbon Dioxide 26 BUN 63 H Creatinine 1.41 H Estimated GFR 37 L BUN/Creatinine Ratio 44.7 H Glucose 140 H Calcium 8.2 L ALT Hep Bs Antigen Negative Hepatitis C Antibody Negative HIV 1&2 Ab/P24 Ag 4thGn Negative PFSH Medical History (Updated 03/24/23 @ 11:51 by Reece Renee MD) Healthy adult Surgical History No pertinent past surgical history Social History household members: spouse and family Smoking Status: Former smoker alcohol intake: current Assessment & Plan Assessment and plan (1) Small bowel obstruction: Status: Acute Plan Because of failure to progress and increase in abdominal pain we will proceed to the operating room for an exploratory laparotomy and any indicated procedures. The risks benefits and indications of the surgery were explained to the patient and her family and she would like to proceed. Quality VTE Deep Vein Thrombosis/Pulmonary Embolism Present on Admission: No
--- NOTE | 2023-03-26 16:11 | SUR.OPER ---
Supine on padded OR bed, head on pillow, arms secured on padded arm boards at <90 degrees abduction, legs uncrossed, safety belt at thigh, tape over blanket over lower legs.
[2023-03-26] MEDS: metroNIDAZOLE 500 MG/100 ML PIGGYBACK 100 MG IV (16:20)
[2023-03-26] MEDS: BUPIVACAINE 0.5% (PF) 10 ML VIAL 30 ML SUBCUT (16:31)
--- NOTE | 2023-03-26 16:39 | CM.DPC ---
DCP Continued: ASSET PROTECTION SPECIALIST reviewed EMR. Per provider in rounds, patient vomited over night and will not d/c today. ASSET PROTECTION SPECIALIST attempted to speak with patient twice today, unable to be roused. ASSET PROTECTION SPECIALIST lvm with spouse Jw to discuss d/c plan. no response. ASSET PROTECTION SPECIALIST approached in [place] by Gaston Owens RN from [facility] regarding Guardian Sh[facility] care. Gaston reported they are new caregivers for patient as of today and asked to be updated upon d/c. ASSET PROTECTION SPECIALIST received VM from Delmy Hinson at an unknown agency. Delmy reported she was a d/c habitat conservation planner/CM and asked to be updated with patient d/c. When this ASSET PROTECTION SPECIALIST called the number back to gather more information, the call would not go through. Per note, increased nausea and vomiting today. Because of failure to progress and increase in abdominal pain we will proceed to the operating room for an exploratory laparotomy and any indicated procedures and NG tube will be replaced. Plan: d/c plan to follow post operation. CM team will continue to follow up with patient/family/guardian nurses for safe d/c plan. CM team will continue to follow closely. CHIKIS Kerns
[2023-03-26] MEDS: ONDANSETRON 4 MG/2 ML INJ IV (17:22)
--- NOTE | 2023-03-26 17:25 | P.OP_ITS ---
Operative Date/Time/Diagnoses Date of procedure: 03/26/23 Time of procedure: 17:25 Pre-op diagnosis: Small bowel obstruction Post-op diagnosis: same Procedure & Clinicians Procedure: Exploratory laparotomy and small-bowel resection Same procedure as scheduled: Yes Surgeon: Reece Renee Pricing/Signage Team Member: Marshall Bond Operative Notes Procedure in detail: Marshall BELCHER provided assistance with exposure, retraction and closure of incisions. The patient is an 82-year-old woman who presented with a small-bowel obstruction. She was treated with an NG-tube and after a day or so seem to be improving with flatus and decreased pain however on the day of surgery she became more tender and started vomiting again. Was no longer passing flatus. The NG tube was replaced and she was consented for an exploratory laparotomy. The patient was brought to the operating room and placed on the table in the supine position. General endotracheal anesthesia was induced. The abdomen was prepped and draped in the usual fashion and a time-out was performed. The patient was on ceftriaxone and Flagyl was added. A low midline incision was created from the umbilicus to the pubic symphysis. Initially there was blood- tinged ascites that was suctioned with a pool sucker. A [place] retractor was positioned into the wound. There was a loop of congested, dusky bowel. We traced the mesentery down to a band of scar tissue in the posterior peritoneal cavity which was divided with cautery. Once the bowel was freed we inspected it closely. There was no obvious necrotic bowel. Warm moist laps were wrapped around the bowel and we waited for about 5 minutes. We then re-examined bowel. There were several areas that were suspicious for irreversible infarction and so a decision was made to resect the infarcted segment. We removed approximately 80 cm of small bowel. There was about 15 cm of terminal ileum that remained healthy appearing and viable and over 150 cm of proximal bowel. No other adhesions were seen involving the small bowel. After resecting the bowel using the LigaSure for the mesentery and the linear cutting stapler with 75 mm blue loads we created a [id number] functional end-to-end anastomosis using an additional firing of the 75 mm blue load stapler. We close the enterotomy defects in 2 layers using a running 2 0 PDS followed by multiple interrupted 2-0 silk Lembert sutures. The mesenteric defect was closed with a running 2 0 Vicryl. We then irrigated the abdomen until all the irrigant returned clear. There was no contamination noted. We then closed the fascia with a running 0 PDS suture and the skin was closed with gianni. EBL: 20 mL Specimen: Small bowel Disposition: ICU
[2023-03-26] MEDS: cefTRIAXone 2,000 MG in SODIUM CHLORIDE 0.9% 100 ML 200 MG IV (18:28)
[2023-03-26 20:00] LABS: MRSA (Nasal) PCR Not Detected (Not Detect)
[2023-03-27] VITALS (27 sets, daily range): BP systolic 101–126; BP diastolic 53–60; PULSE 59–105; RESP 11–21; TEMP 36.3–37.7; O2SAT 82–96
[2023-03-27] MEDS: HYDROMORPHONE 0.5 MG INJ IV ×2 (01:42→19:51)
[2023-03-27 04:45] LABS: Add Manual Diff / Slide Review NO; Basophils Absolute Auto 0 /uL (0-100); Eosinophils Absolute Auto 0 /uL (0-450); Hemoglobin 9.4 g/dL (12.0-16.0); Lymphocytes Absolute Auto 600 /uL (1100-4500); Lymphocytes Percent Auto 8.8 % (25-40); Mean Corpuscular HGB Conc 34.8 % (30-36); Mean Corpuscular Hemoglobin 31.1 PG (26-34); Mean Corpuscular Volume 89.3 fL (80-100); Monocytes Absolute Auto 500 /uL (0-900); Monocytes Percent Auto 7.9 % (3-14); Neutrophils Absolute Auto 5600 /uL (1500-7000); Neutrophils Percent Auto 83.3 % (50-75); Platelet Count 147 X10^3/uL (150-400); Red Blood Cell Count 3.02 X10^6/uL (4.0-5.2); Red Cell Distribution Width 13.8 % (11.6-14.8); White Blood Cell Count 6.7 X10^3/uL (4.5-11.0)
[2023-03-27 04:57] LABS: Alanine Aminotransferase 10 IU/L (<35); Albumin 2.2 g/dL (3.5-5.0); Albumin Globulin Ratio 0.9 (1.0-2.8); Alkaline Phosphatase 50 U/L (38-126); Aspartate Aminotransferase 19 IU/L (14-36); BUN Creatinine Ratio 41.2 (6-22); Bilirubin Total 0.3 mg/dL (0.2-1.3); Blood Urea Nitrogen 35 mg/dL (7-17); Calcium 7.5 mg/dL (8.4-10.2); Carbon Dioxide 28 mmol/L (22-32); Chloride 110 mmol/L (98-107); Estimated Glomerular Filt Rate > 60 mL/min (>60); Globulin 2.5 g/dL (1.7-4.1); Glucose 123 mg/dL (80-110); HEMOLYSIS < 15 (0-50); Magnesium 2.2 mg/dL (1.6-2.3); Potassium 4.5 mmol/L (3.4-5.1); Sodium 139 mmol/L (137-145); Total Protein 4.7 g/dL (6.3-8.2)
--- NOTE | 2023-03-27 06:22 | PC.NURSE ---
Regional Clinical Director Note- Patient was drowsy and slept most of the night. Woke around 0100 mildly confused and pulling at gown and lines, warm to touch, HR 90s, T 99.9 orally, many blankets removed, cool cloth to forehead, and fan used to cool her, IV Dilaudid given for abdominal pain-effective. 200ml out from NGT, 800ml UOP in Chambers.
[2023-03-27 08:37] LABS: Hepatitis B Surf Ab Qualitativ Reactive (.)
[2023-03-27] MEDS: LACTATED RINGERS 1,000 ML 100 ML IV ×2 (08:50→23:36)
--- NOTE | 2023-03-27 08:50 | P.PN_ITS ---
Subjective Subjective Date Patient Seen: 03/27/23 Time Patient Seen: 08:51 Interval history: No new problems overnight. No significant complaints of pain. Exam Vital Signs (past 8 hours): - 03/27/23 01:00 03/27/23 01:36 03/27/23 01:36 Temperature 99.9 F H Pulse Rate 71 92 H Respiratory Rate 18 21 Blood Pressure 108/55 L Pulse Oximetry 94 91 Oxygen Flow Rate 2 03/27/23 02:00 03/27/23 02:00 03/27/23 03:00 Temperature Pulse Rate 87 Respiratory Rate 14 Blood Pressure 108/56 L 115/59 L Pulse Oximetry 93 Oxygen Flow Rate 2 03/27/23 03:00 03/27/23 04:00 03/27/23 04:00 Temperature 98.6 F Pulse Rate 70 65 Respiratory Rate 11 L 12 Blood Pressure 106/59 L Pulse Oximetry 95 94 Oxygen Flow Rate 2 2 03/27/23 05:00 03/27/23 05:00 03/27/23 06:00 Temperature Pulse Rate 59 L Respiratory Rate 12 Blood Pressure 112/56 L 114/53 L Pulse Oximetry 93 Oxygen Flow Rate 2 03/27/23 06:00 03/27/23 07:00 03/27/23 07:00 Temperature Pulse Rate 59 L 74 Respiratory Rate 12 12 Blood Pressure 126/58 L Pulse Oximetry 94 90 L Oxygen Flow Rate 03/27/23 08:00 Temperature 98.9 F Pulse Rate Respiratory Rate Blood Pressure Pulse Oximetry Oxygen Flow Rate Oxygen Delivery Method Room Air Oxygen Flow Rate 2 Narrative Exam Narrative: Awake and alert Abdomen soft with dressings in place Objective Labs 03/27/23 04:31 03/27/23 04:31 Labs: Laboratory Results - last 24 hr 03/25/23 03/26/23 03/27/23 17:56 18:04 04:31 WBC 6.7 D RBC 3.02 L Hgb 9.4 L Hct 27.0 L MCV 89.3 MCH 31.1 MCHC 34.8 RDW 13.8 Plt Count 147 L Neut % (Auto) 83.3 H Lymph % (Auto) 8.8 L [place] % (Auto) 7.9 Eos % (Auto) 0.0 L Baso % (Auto) 0.0 Neut # (Auto) 5600 Lymph # (Auto) 600 L [place] # (Auto) 500 Eos # (Auto) 0 Baso # (Auto) 0 Sodium Potassium Chloride Carbon Dioxide BUN Creatinine Estimated GFR BUN/Creatinine Ratio Glucose Calcium Magnesium Total Bilirubin AST ALT Alkaline Phosphatase Total Protein Albumin Globulin Albumin/Globulin Ratio Nasal Screen MRSA (PCR) Not detected Hep Bs Antibody Reactive 03/27/23 04:31 WBC RBC Hgb Hct MCV MCH MCHC RDW Plt Count Neut % (Auto) Lymph % (Auto) [place] % (Auto) Eos % (Auto) Baso % (Auto) Neut # (Auto) Lymph # (Auto) [place] # (Auto) Eos # (Auto) Baso # (Auto) Sodium 139 Potassium 4.5 Chloride 110 H Carbon Dioxide 28 BUN 35 H Creatinine 0.85 Estimated GFR > 60 BUN/Creatinine Ratio 41.2 H Glucose 123 H Calcium 7.5 L Magnesium 2.2 Total Bilirubin 0.3 AST 19 ALT 10 Alkaline Phosphatase 50 D Total Protein 4.7 L Albumin 2.2 L Globulin 2.5 Albumin/Globulin Ratio 0.9 L Nasal Screen MRSA (PCR) Hep Bs Antibody [facility] Medical History (Updated 03/27/23 @ 08:51 by Reece Renee MD) Healthy adult Surgical History No pertinent past surgical history Social History household members: spouse and family Smoking Status: Former smoker alcohol intake: current Assessment & Plan Assessment and plan (1) Postoperative examination: Status: Acute Plan Doing well on postoperative day 1 following exploratory laparotomy and small- 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 Discontinue NG tube and Chambers today Floor status Start Lovenox Quality VTE Deep Vein Thrombosis/Pulmonary Embolism Present on Admission: No
--- NOTE | 2023-03-27 09:33 | CM.DPC ---
Addendum entered by CHIKIS Kerns 03/28/23 08:38: Late Entry Patient had some questions re: filling out FML information. IRON MINER asked provider if it was on him or surgical team. Provider referred patient and family to surgical team. IRON MINER referred patient and family to have paperwork filled out by [facility]. Family appeared appreciative. SL Original Note: DCP Continued: IRON MINER reviewed EMR. From nursing staff, patient is able to be on clears and have small ice ships and is still on O2. From provider, likely here a few more days. IRON MINER entered room and introduced self and role. Patient was laying in bed and appeared A/Ox4. Patient was accompanied by spouse Jw. Jw was no receiving this IRON MINER's messages for the past few days due to us having the wrong number for him. His actual number is [phone]. Patient and spouse reported they are unsure who Guardian Nurses is, but believes their son may have signed her up for some more caregiving support or they are from [facility] [employer]. Spouse Jw reports he will look into it more. Patient and Spouse report they have no clue who Delmy is and could be calling from (see IRON MINER note from yesterday). Their theory was maybe it was someone from [facility] or [facility] calling for additional care management needs. Patient and spouse report they are open to HH if needed. Spouse feels comfortable care giving for her and does not think it'll be necessary at this time. Patient and family asked if their Medicare information was in the chart. IRON MINER confirmed it was along with their [facility] primary coverage. Plan: d/c home with family when medically stable. CM team will continue to follow closely. Transport with family in POV. CHIKIS Kerns
[2023-03-27] MEDS: ENOXAPARIN 40 MG/0.4 ML SYRINGE SUBCUT (09:44)
[2023-03-27] MEDS: CARBIDOPA-LEVODOPA ER 50/200 TABLET 1 EACH PO ×2 (09:45→21:35)
--- NOTE | 2023-03-27 09:55 | PC.NURSE ---
Addendum entered by Jw Fang R.N. 03/27/23 17:47: [facility], 2 person assist. no complaints of pain or nausea after returning to bed. Original Note: NG tube and chavis catheter removed. Patient tolerated well.
--- NOTE | 2023-03-27 14:34 | PM.PN.1 ---
Subjective Subjective Interval history: 82 F admitted with bowel obstruction now POD#1 s/p ex-lap with small bowel resection. She feels better today, no significant pain. Some nausea but tolerating some sips. She reports passing gas this morning. Wanting to try more liquids. Exam Vital Signs (past 8 hours): - 03/27/23 07:00 03/27/23 07:00 03/27/23 08:00 Temperature 98.9 F Pulse Rate 74 Respiratory Rate 12 Blood Pressure 126/58 L Pulse Oximetry 90 L Oxygen Delivery Method Oxygen Flow Rate 03/27/23 10:00 03/27/23 12:00 03/27/23 08:00 Temperature 98.5 F Pulse Rate Respiratory Rate Blood Pressure 111/56 L Pulse Oximetry 92 Oxygen Delivery Method Nasal Cannula Oxygen Flow Rate 3 03/27/23 08:00 03/27/23 09:00 03/27/23 09:00 Temperature Pulse Rate 64 69 Respiratory Rate 13 16 Blood Pressure 115/58 L Pulse Oximetry 93 92 Oxygen Delivery Method Oxygen Flow Rate 03/27/23 10:00 03/27/23 10:00 03/27/23 11:00 Temperature Pulse Rate 67 Respiratory Rate 15 Blood Pressure 110/57 L 122/58 L Pulse Oximetry 92 Oxygen Delivery Method Oxygen Flow Rate 03/27/23 11:00 03/27/23 12:00 03/27/23 12:00 Temperature Pulse Rate 63 64 Respiratory Rate 14 14 Blood Pressure 118/56 L Pulse Oximetry 94 91 Oxygen Delivery Method Oxygen Flow Rate Oxygen Delivery Method Nasal Cannula Oxygen Flow Rate 3 Narrative Exam Narrative: GENERAL: Alert and oriented x three, in no acute medical distress HEENT: Head normocephalic, atraumatic, EOMI, pupils reactive, NECK: Supple, full range of motion CARDIOVASCULAR: Regular rate and rhythm without murmurs, rubs or gallops.? No JVD.? No swelling bilateral lower extremities. RESPIRATORY: Breath sounds equal bilaterally, no wheezes rales or rhonchi.? No tachypnea or accessory muscle use.? EXTREMITIES: Normal range of motion, no clubbing or edema. 2+ pulses bilateral lower extremities.? Neurovascularly intact NEUROLOGICAL: Cranial nerves II through XII grossly intact.? Normal sensation of all extremities. Objective Labs 03/27/23 04:31 03/27/23 04:31 Labs: Laboratory Results - last 24 hr 03/25/23 03/26/23 03/27/23 17:56 18:04 04:31 WBC 6.7 D RBC 3.02 L Hgb 9.4 L Hct 27.0 L MCV 89.3 MCH 31.1 MCHC 34.8 RDW 13.8 Plt Count 147 L Neut % (Auto) 83.3 H Lymph % (Auto) 8.8 L [place] % (Auto) 7.9 Eos % (Auto) 0.0 L Baso % (Auto) 0.0 Neut # (Auto) 5600 Lymph # (Auto) 600 L [place] # (Auto) 500 Eos # (Auto) 0 Baso # (Auto) 0 Sodium Potassium Chloride Carbon Dioxide BUN Creatinine Estimated GFR BUN/Creatinine Ratio Glucose Calcium Magnesium Total Bilirubin AST ALT Alkaline Phosphatase Total Protein Albumin Globulin Albumin/Globulin Ratio Nasal Screen MRSA (PCR) Not detected Hep Bs Antibody Reactive 03/27/23 04:31 WBC RBC Hgb Hct MCV MCH MCHC RDW Plt Count Neut % (Auto) Lymph % (Auto) [place] % (Auto) Eos % (Auto) Baso % (Auto) Neut # (Auto) Lymph # (Auto) [place] # (Auto) Eos # (Auto) Baso # (Auto) Sodium 139 Potassium 4.5 Chloride 110 H Carbon Dioxide 28 BUN 35 H Creatinine 0.85 Estimated GFR > 60 BUN/Creatinine Ratio 41.2 H Glucose 123 H Calcium 7.5 L Magnesium 2.2 Total Bilirubin 0.3 AST 19 ALT 10 Alkaline Phosphatase 50 D Total Protein 4.7 L Albumin 2.2 L Globulin 2.5 Albumin/Globulin Ratio 0.9 L Nasal Screen MRSA (PCR) Hep Bs Antibody [facility] Medical History (Updated 03/27/23 @ 08:51 by Reece Renee MD) Healthy adult Surgical History No pertinent past surgical history Social History household members: spouse and family Smoking Status: Former smoker alcohol intake: current Assessment & Plan Assessment & Plan narrative: 1. SBO, likely secondary to adhesions, s/p ex-lap and small bowel resection. -POD #1 ex-lap with small bowel resection with general surgery -management per surgical service, advance diet per surgeon. 2. Parkinson's Disease - Sinemet 50/200 bid 3. 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 6. Leukocytosis, resolved - likely reactive to bowel obstruction and in part dehydration as well. - continue IV fluids. 7. CAROLIN , improved - secondary to dehydration and SBO. Continue IV fluids. Creatinine 2.18 improved to 0.85 today. Code status:? Full code DVT prophylaxis:?Lovenox daily Surrogate decision maker:? Jw Simpson, Dispo: remains inpatient, anticipate probable discharge home in 2-3 days depending on recovery after bowel surgery Additional history obtained via bedside staff, I have reviewed patients lab and imaging findings personally and prior provider's documentation. Discussed with care management team. Quality VTE Deep Vein Thrombosis/Pulmonary Embolism Present on Admission: No
--- NOTE | 2023-03-27 17:32 | PT-IP ANOTE ---
PT attempted to see patient @ 1700. Pt refused d/t lethargy and fatigue.
[2023-03-27] MEDS: cefTRIAXone 2,000 MG in SODIUM CHLORIDE 0.9% 100 ML 200 MG IV (18:12)
[2023-03-28] VITALS (26 sets, daily range): BP systolic 112–149; BP diastolic 57–76; PULSE 60–80; RESP 16–19; TEMP 36–36.9; O2SAT 81–96
[2023-03-28 05:09] LABS: Add Manual Diff / Slide Review NO; Basophils Absolute Auto 0 /uL (0-100); Basophils Percent Auto 0.1 % (0-2); Eosinophils Absolute Auto 100 /uL (0-450); Eosinophils Percent Auto 0.8 % (2-4); Hemoglobin 8.7 g/dL (12.0-16.0); Lymphocytes Absolute Auto 1300 /uL (1100-4500); Mean Corpuscular HGB Conc 34.9 % (30-36); Mean Corpuscular Volume 88.7 fL (80-100); Monocytes Absolute Auto 600 /uL (0-900); Monocytes Percent Auto 9.4 % (3-14); Neutrophils Absolute Auto 4700 /uL (1500-7000); Neutrophils Percent Auto 69.7 % (50-75); Platelet Count 159 X10^3/uL (150-400); Red Blood Cell Count 2.82 X10^6/uL (4.0-5.2); Red Cell Distribution Width 13.6 % (11.6-14.8); White Blood Cell Count 6.7 X10^3/uL (4.5-11.0)
[2023-03-28 05:18] LABS: Alanine Aminotransferase 8 IU/L (<35); Albumin 2.1 g/dL (3.5-5.0); Albumin Globulin Ratio 0.9 (1.0-2.8); Alkaline Phosphatase 43 U/L (38-126); Aspartate Aminotransferase 20 IU/L (14-36); BUN Creatinine Ratio 35.7 (6-22); Bilirubin Total 0.2 mg/dL (0.2-1.3); Blood Urea Nitrogen 25 mg/dL (7-17); Calcium 7.3 mg/dL (8.4-10.2); Carbon Dioxide 30 mmol/L (22-32); Chloride 107 mmol/L (98-107); Estimated Glomerular Filt Rate > 60 mL/min (>60); Globulin 2.4 g/dL (1.7-4.1); Glucose 109 mg/dL (80-110); HEMOLYSIS < 15 (0-50); Magnesium 2.2 mg/dL (1.6-2.3); Potassium 3.8 mmol/L (3.4-5.1); Sodium 137 mmol/L (137-145); Total Protein 4.5 g/dL (6.3-8.2)
--- NOTE | 2023-03-28 06:42 | PC.NURSE ---
pt has slept well tonight; she was medicated with dilaudid early in the shift and has not had any more complaints of pain; she was placed on o2/2l/nc for o2sat in the mid 80's while asleep
[2023-03-28] MEDS: ENOXAPARIN 40 MG/0.4 ML SYRINGE SUBCUT (08:31)
[2023-03-28] MEDS: CARBIDOPA-LEVODOPA ER 50/200 TABLET 1 EACH PO ×2 (08:31→20:45)
--- NOTE | 2023-03-28 13:58 | DI.RAD.S_ITS ---
PROCEDURE: XR CHEST 1V INDICATIONS: eval for pneumonia TECHNIQUE: One view of the chest was acquired. COMPARISON: [facility], CR, XR CHEST 1V, 03/26/2023, 13:11. FINDINGS: Surgical changes and devices: None. Lungs and pleura: Increased left pleural effusion. Haziness at the right base may represent additional pleural effusion Bibasilar opacities, may represent atelectasis or infection. No pneumothorax. Mediastinum: Mediastinal contours appear normal. Heart size is normal. Bones and chest wall: No suspicious bony lesions. Overlying soft tissues appear unremarkable. IMPRESSION: Increased size of now small to moderate left pleural effusion. Haziness at the right base may represent small pleural effusion. Bibasilar opacities, likely atelectasis. Dictated by: Kumar Jason M.D. on 03/28/2023 at 15:40 Approved by: Kumar Jason M.D. on 03/28/2023 at 15:42
--- NOTE | 2023-03-28 14:15 | PT.IIE ---
Current Diagnoses Unspecified intestinal obstruction, unspecified as to partial versus complete obstruction (03/24/23) Encounter for follow-up examination after completed treatment for conditions other than malignant neoplasm (03/24/23) Surgery Performed Operation Date: 03/26/23 15:45 Actual Procedures p Exploratory Laparotomy with small bowel resection - Reece Renee MD Surgical History (Last Reviewed 03/24/23 @ 08:18 by Gracia Buck MD) No pertinent past surgical history Medical History (Last Reviewed 03/24/23 @ 08:18 by Gracia Buck MD) Healthy adult Physical Therapy Inpatient Evaluation/Re-Eval M1 PT/OT-IP Prior Functional Status Start: 03/28/23 15:18 Freq: NEEDED Status: Active Protocol: Document 03/28/23 14:15 AB (Rec: 03/28/23 15:38 AB [id number]) Medical Review Prior Functional Status Medical History Reviewed Yes Communication able to make needs known Mobility and Gait pt stated that she is modified independent with all mobilities and ambulation without AD Social History Household Members spouse,family Living Arrangements House Number of Floors (Floors) 3 or More Floors Number of Stairs To Enter/Railing? pt lives in a split level house: has to walk ~ 40 ft uphill from the car to the entrance with 7 steps to enter R rail ascending and another 7 steps without rails to living area/bedroom Home Environment Standard Height Toilet,Tub/ Shower Home Equipment Hand Held Shower,Grab Bars In Shower Additional Social History Comment pt has her spouse, son/DIL/ grandchildren at home to assist her if needed M2 PT-IP Current Condition Start: 03/28/23 15:18 Freq: NEEDED Status: Active Protocol: Document 03/28/23 14:15 AB (Rec: 03/28/23 15:38 AB [email or web address]) Physical Therapy Current Condition Current Condition Evaluation Date 03/28/23 Treatment Diagnosis SBO s/p ex-lap and small bowel resection; difficulty in walking Onset Date 03/24/23 M3 PT-IP Subjective Start: 03/28/23 15:18 Freq: NEEDED Status: Active Protocol: Document 03/28/23 14:15 AB (Rec: 03/28/23 15:38 AB [email or web address]) Subjective Physical Therapy Visit Type Type Initial Evaluation Visit Start Time 14:15 Visit Stop Time 15:13 Total Visit Minutes 58 Number of PANEL SEWER Visits 0 Physical Therapy Visit Comments Patient Comments agreeable to do PT Therapy Pain Assessment Pain When Pain Assessed At Rest Pain Present Pain Present Pain Reported Location Abdomen Intensity 6 Scale Used Numeric (0 - 10) Pain Management Techniques Distraction,Modification of Treatment,Re-positioning, Timing of Activity with Medications M4 PT-IP Mobility and Gait Start: 03/28/23 15:18 Freq: NEEDED Status: Active Protocol: Document 03/28/23 14:15 AB (Rec: 03/28/23 15:38 AB [id number]) PT-Bed Mobility Assessment Rolling Type of Rolling Log Rolling Level of Assist Maximal Assistance Supine to Sit Supine to Sit Maximum Assistance Scooting Scooting to Edge of Bed Maximum Assistance PT-Transfer Assessment Sit to and From Stand Sit to and from Stand Moderate Assistance,Maximum Assistance,1 Person Assistance ,Use of Upper Extremities Equipment Transfer Assistive Device Gait Belt,Front Wheeled Walker Orthotic/Prosthetic Devices or Brace: No Transfers Transfer Destination Chair Transfer Technique ambulated Transfer Ability Level of Assist Moderate Assistance,Maximum Assistance,1 Person Assistance ,Use of Upper Extremities Comments Mobility Comments pt supine in bed and spouse in room. educated pt and spouse regarding abdominal precautions and log roll bed mobility. handout provided. pt completed log roll supine to sit max A and max cues. able to sit on EOB min A. required max A for scooting to EOB. completed sit to stand mod to max A and max cues and ambulated in room using FWW mod to max A and max cues. presents with increase lateral trunk lean to the L and occasional retrolean requiring mod A for steadiness. pt with stooped posture and cued for upright posture. pt also has slow nancie with narrow KISHOR and tends to push FWW too far forward. pt needs management with FWW. pt agreed to sit on the chair. positioned pt on the chair. call light and table placed within reach. pt also slow to respond. Gait Assessment Gait Gait Assistance Required: Moderate Assistance,Maximum Assistance,1 Person Assist Distance (Feet) 10 Able to Maintain Weight Bearing Status Yes During Gait Assistive Devices Assistive Device Gait Belt,Front Wheeled Walker Orthotic/Prosthetic Devices or Brace: No Gait Deviations General Gait Pattern Decreased Stride Length, Decreased Feet Clearance, Flexed Trunk,Lateral Trunk Lean,Narrow Based Gait,Step-to Gait Factors Limiting Gait Function Factors Limiting Gait Function Decreased Activity Tolerance, Decreased Sensation,Decreased Strength,Difficulty Following Directions,Limited Range of Motion,Pain,Poor Balance,Poor Safety Awareness,Respiratory Distress PT-Balance Assessment Sitting Balance and Reactions Static Sitting Balance Ability Fair Dynamic Sitting Balance Ability Fair Standing Balance and Reactions Static Standing Balance Ability Poor Dynamic Standing Balance Ability Poor Device Used FWW M5 PT-IP Objective Assessments Start: 03/28/23 15:18 Freq: NEEDED Status: Active Protocol: Document 03/28/23 14:15 AB (Rec: 03/28/23 15:38 AB [id number]) Orientation Orientation/Cognition Level of Alertness Alert Orientation Name Safety Awareness Decreased Safety Awareness Memory Description Short Term Impaired Gross Range of Motion Lower Extremity ROM Assessment Within Functional Limits Strength Lower Extremity Strength Assessment Left Impaired Hip 4-/5 Knee 4-/5 Ankle 3+/5 Muscle Tone Muscle Tone WNL Yes M6 PT-IP Treatment Start: 03/28/23 15:18 Freq: NEEDED Status: Active Protocol: Document 03/28/23 14:15 AB (Rec: 03/28/23 15:38 AB [email or web address]) Physical Therapy Treatment Education Education Provided Precautions,Weight Bearing Status,Post-Op Packet,Safety M7 PT-IP Assessment and Plan Start: 03/28/23 15:18 Freq: NEEDED Status: Active Protocol: Document 03/28/23 14:15 AB (Rec: 03/28/23 15:38 AB [email or web address]) PT Summary Assessment and Plan Potential Rehabilitation Potential Fair Status of Condition at Evaluation Evolving Summary Impairments Pain,ROM,Strength,Balance, Coordination,Sensation,Tone, Cognition,Bed Mobility, Transfers,Gait,Activity Tolerance Assessment Summary pt admitted 03/24/23 for SBO and underwent ex-lap and small bowel resection 03/26/23. pt also has dx PD contributing to current mobility level. pt requiriing max A with bed mobility and mod to max A for transfers and ambulation using FWW. pt needs 24/7 assist at this time and lives on a split level house with 14 steps to enter. pt only tolerated ~ 10 ft of ambulation using FWW mod to max A and max cues. pt lives with spouse and will be able to provide assistance. informed pt and spouse regarding SNF recommendation and spouse agreed but pt stated that she wants to go home. informed field nurse case manager regarding pt's mobility and d/ c recommendation. will continue to assess progress. Goals Bed Mobility Goal Minimal Assistance Transfer Goal Minimal Assistance,Front Wheeled Walker Gait Goal Minimal Assistance,Front Wheel Walker Gait Distance 100 Other Goals improve bed mobility: SBA improve transfers using FWW SBA improve ambulation using FWW SBA 200 ft up/down 7 steps R rail ascending SBA up/down 7 steps without rails/ JIG AND FIXTURE REPAIRER min A Days to Meet Goals 10 Frequency of Treatment Frequency Of Treatment Once a Day Treatment Plan Physical Therapy Treatment Plan Bed Mobility Training,Transfer Training,Gait Training, Therapeutic Exercise,Balance Retraining,Post Op Education, Discharge Planning,Hot or Cold Pack,Neuromuscular Re-ed, Coordination Retraining,Manual Therapy Precautions Abdominal Surgery Precautions Log Roll,Lifting Restrictions, Gait Belt above Incisional Area Recommendations To Nursing Amount of Assist Needed 1 Person Assist Discharge Recommendations PT Discharge Recommendations Home with 18/03 Assist Available,Home Health,SNF Rehab,Home vs SNF Equipment Needed for Home Before FWW Discharge Transportation Needs at Discharge Private Vehicle,Wheelchair/ Cabulance
--- NOTE | 2023-03-28 15:38 | P.PN_ITS ---
Subjective Subjective Interval history: 82 F admitted with bowel obstruction now POD#2 s/p ex-lap with small bowel resection. She feels better today, no significant pain. Tolerating liquids. Has passed gas, no bowel movements. Exam Vital Signs (past 8 hours): - 03/28/23 08:00 03/28/23 07:53 03/28/23 12:00 Temperature 98.5 F 96.8 F L Pulse Rate 71 74 68 Respiratory Rate 16 18 Blood Pressure 129/59 L 129/60 Pulse Oximetry 95 95 93 Oxygen Delivery Method Nasal Cannula Oxygen Flow Rate 2 3 2 Fraction of Inspired Oxygen 32 Fraction of Inspired Oxygen 32 SaO2/FiO2 Ratio 296 Oxygen Delivery Method Nasal Cannula Oxygen Flow Rate 2 Narrative Exam Narrative: GENERAL: Alert and oriented x three, in no acute medical distress HEENT: Head normocephalic, atraumatic, EOMI, pupils reactive, NECK: Supple, full range of motion CARDIOVASCULAR: Regular rate and rhythm without murmurs, rubs or gallops.? No JVD.? No swelling bilateral lower extremities. RESPIRATORY: Breath sounds equal bilaterally, no wheezes rales or rhonchi.? No tachypnea or accessory muscle use.? EXTREMITIES: Normal range of motion, no clubbing or edema. 2+ pulses bilateral lower extremities.? Neurovascularly intact NEUROLOGICAL: Cranial nerves II through XII grossly intact.? Normal sensation of all extremities. Objective Labs 03/28/23 04:33 03/28/23 04:33 Labs: Laboratory Results - last 24 hr 03/28/23 03/28/23 04:33 04:33 WBC 6.7 RBC 2.82 L Hgb 8.7 L Hct 25.0 L MCV 88.7 MCH 31.0 MCHC 34.9 RDW 13.6 Plt Count 159 Neut % (Auto) 69.7 Lymph % (Auto) 20.0 L [place] % (Auto) 9.4 Eos % (Auto) 0.8 L Baso % (Auto) 0.1 Neut # (Auto) 4700 Lymph # (Auto) 1300 [place] # (Auto) 600 Eos # (Auto) 100 Baso # (Auto) 0 Sodium 137 Potassium 3.8 Chloride 107 Carbon Dioxide 30 BUN 25 H Creatinine 0.70 Estimated GFR > 60 BUN/Creatinine Ratio 35.7 H Glucose 109 Calcium 7.3 L Magnesium 2.2 Total Bilirubin 0.2 AST 20 ALT 8 Alkaline Phosphatase 43 Total Protein 4.5 L Albumin 2.1 L Globulin 2.4 Albumin/Globulin Ratio 0.9 L [facility] Medical History (Updated 03/27/23 @ 08:51 by Reece Renee MD) Healthy adult Surgical History No pertinent past surgical history Social History household members: spouse and family Smoking Status: Former smoker alcohol intake: current Assessment & Plan Assessment & Plan narrative: 1. SBO, likely secondary to adhesions, s/p ex-lap and small bowel resection. -POD #2 ex-lap with small bowel resection with general surgery -management per surgical service, advance diet per surgeon. 2. Parkinson's Disease - Sinemet 50/200 bid 3. 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 6. Leukocytosis, resolved - likely reactive to bowel obstruction and in part dehydration as well. - continue IV fluids. 7. CAROLIN , improved - secondary to dehydration and SBO. Continue IV fluids. Creatinine 2.18 i mproved to 0.7 today. Code status:? Full code DVT prophylaxis:?Lovenox daily Surrogate decision maker:? Jw RachelTatiana, Dispo: remains inpatient, anticipate probable discharge home in a couple of days, ordered for PT today. Additional history obtained via bedside staff, I have reviewed patients lab and imaging findings personally and prior provider's documentation. Discussed with care management team. Quality VTE Deep Vein Thrombosis/Pulmonary Embolism Present on Admission: No
--- NOTE | 2023-03-28 16:30 | CM.DPC ---
DCP Continued: FISHING TOOL OPERATOR reviewed EMR. Per Provider, patient doing well but will not d/c today. PT is recommending SNF at this time. FISHING TOOL OPERATOR entered room and reintroduced self and role. Patient accompanied by spouse at bedside. Patient and spouse open to SNF or HH for PT/OT. First preference is [facility] for SNF and then [facility] or [facility] for HH. Preference overall is home with family if patient gets more strength after being able to tolerate a diet. FISHING TOOL OPERATOR called [facility] to inform them of the new referral. All three agencies agreed to review. FISHING TOOL OPERATOR faxed Facesheet, H&P, PT eval, and PN to all three agencies. Plan: 1) home with family support/[facility] home care givers 2) home with [facility] or [facility] for nursing/PT/OT pending their acceptance 3) [facility] for rehab pending their acceptance. CHIKIS Kerns
--- NOTE | 2023-03-28 17:58 | P.PN_ITS ---
Subjective Subjective Date Patient Seen: 03/28/23 Interval history: Feeling better today. Pain is well controlled. Continues to pass flatus. She has tolerated clear liquid diet. Exam Vital Signs (past 8 hours): - 03/28/23 12:00 03/28/23 16:00 03/28/23 11:55 Temperature 96.8 F L 98.2 F Pulse Rate 68 68 67 Respiratory Rate 18 19 Blood Pressure 129/60 130/58 L Pulse Oximetry 93 96 92 Oxygen Flow Rate 2 2 03/28/23 11:56 03/28/23 11:56 03/28/23 14:31 Temperature Pulse Rate 67 Respiratory Rate Blood Pressure 129/60 Pulse Oximetry 93 92 Oxygen Flow Rate 03/28/23 14:32 03/28/23 14:32 03/28/23 15:02 Temperature Pulse Rate 70 79 Respiratory Rate Blood Pressure 149/65 H Pulse Oximetry 93 95 Oxygen Flow Rate 03/28/23 16:49 Temperature Pulse Rate Respiratory Rate Blood Pressure Pulse Oximetry 84 L Oxygen Flow Rate Fraction of Inspired Oxygen 32 SaO2/FiO2 Ratio 296 Oxygen Delivery Method Nasal Cannula Oxygen Flow Rate 2 Narrative Exam Narrative: Soft Appropriately tender Minimally distended Incision is clean and dry Objective Labs 03/28/23 04:33 03/28/23 04:33 Labs: Laboratory Results - last 24 hr 03/28/23 03/28/23 04:33 04:33 WBC 6.7 RBC 2.82 L Hgb 8.7 L Hct 25.0 L MCV 88.7 MCH 31.0 MCHC 34.9 RDW 13.6 Plt Count 159 Neut % (Auto) 69.7 Lymph % (Auto) 20.0 L [place] % (Auto) 9.4 Eos % (Auto) 0.8 L Baso % (Auto) 0.1 Neut # (Auto) 4700 Lymph # (Auto) 1300 [place] # (Auto) 600 Eos # (Auto) 100 Baso # (Auto) 0 Sodium 137 Potassium 3.8 Chloride 107 Carbon Dioxide 30 BUN 25 H Creatinine 0.70 Estimated GFR > 60 BUN/Creatinine Ratio 35.7 H Glucose 109 Calcium 7.3 L Magnesium 2.2 Total Bilirubin 0.2 AST 20 ALT 8 Alkaline Phosphatase 43 Total Protein 4.5 L Albumin 2.1 L Globulin 2.4 Albumin/Globulin Ratio 0.9 L [facility] Medical History (Updated 03/27/23 @ 08:51 by Reece Renee MD) Healthy adult Surgical History No pertinent past surgical history Social History household members: spouse and family Smoking Status: Former smoker alcohol intake: current Assessment & Plan Assessment and plan (1) Postoperative examination: Status: Acute Plan Doing well postoperative day 2 after small-bowel resection Advanced to regular diet but start with small volumes with each meal Dr. Braxton will round tomorrow. She could potentially go home tomorrow or Saturday depending how she does with her diet and her pain control Quality VTE Deep Vein Thrombosis/Pulmonary Embolism Present on Admission: No
[2023-03-28] MEDS: cefTRIAXone 2,000 MG in SODIUM CHLORIDE 0.9% 100 ML 200 MG IV (18:48)
[2023-03-28] MEDS: SERTRALINE 50 MG TABLET PO (20:45)
[2023-03-29] VITALS (22 sets, daily range): BP systolic 141–172; BP diastolic 65–92; PULSE 64–80; RESP 16–18; TEMP 36.2–36.8; O2SAT 80–97
[2023-03-29 04:54] LABS: Add Manual Diff / Slide Review NO; Basophils Absolute Auto 0 /uL (0-100); Basophils Percent Auto 0.1 % (0-2); Eosinophils Absolute Auto 200 /uL (0-450); Eosinophils Percent Auto 2.3 % (2-4); Hematocrit 27.9 % (36-46); Hemoglobin 9.7 g/dL (12.0-16.0); Lymphocytes Absolute Auto 1500 /uL (1100-4500); Lymphocytes Percent Auto 22.3 % (25-40); Mean Corpuscular HGB Conc 34.7 % (30-36); Mean Corpuscular Hemoglobin 31.1 PG (26-34); Mean Corpuscular Volume 89.6 fL (80-100); Monocytes Absolute Auto 600 /uL (0-900); Monocytes Percent Auto 8.5 % (3-14); Neutrophils Absolute Auto 4500 /uL (1500-7000); Neutrophils Percent Auto 66.8 % (50-75); Platelet Count 163 X10^3/uL (150-400); Red Blood Cell Count 3.11 X10^6/uL (4.0-5.2); Red Cell Distribution Width 13.4 % (11.6-14.8); White Blood Cell Count 6.8 X10^3/uL (4.5-11.0)
[2023-03-29 05:02] LABS: Alanine Aminotransferase 7 IU/L (<35); Albumin 2.3 g/dL (3.5-5.0); Alkaline Phosphatase 47 U/L (38-126); Aspartate Aminotransferase 24 IU/L (14-36); BUN Creatinine Ratio 27.6 (6-22); Bilirubin Total 0.2 mg/dL (0.2-1.3); Blood Urea Nitrogen 16 mg/dL (7-17); Calcium 7.3 mg/dL (8.4-10.2); Carbon Dioxide 31 mmol/L (22-32); Chloride 105 mmol/L (98-107); Estimated Glomerular Filt Rate > 60 mL/min (>60); Globulin 2.4 g/dL (1.7-4.1); Glucose 103 mg/dL (80-110); HEMOLYSIS < 15 (0-50); Magnesium 1.9 mg/dL (1.6-2.3); Potassium 3.3 mmol/L (3.4-5.1); Sodium 137 mmol/L (137-145); Total Protein 4.7 g/dL (6.3-8.2)
[2023-03-29] MEDS: ENOXAPARIN 40 MG/0.4 ML SYRINGE SUBCUT (08:58)
[2023-03-29] MEDS: CARBIDOPA-LEVODOPA ER 50/200 TABLET 1 EACH PO ×2 (08:58→21:05)
[2023-03-29] MEDS: POTASSIUM CHLORIDE 20 MEQ TAB 40 MEQ PO (09:49)
--- NOTE | 2023-03-29 12:36 | DI.RAD.S_ITS ---
PROCEDURE: XR ABDOMEN 1V INDICATIONS: postop ileus TECHNIQUE: One view of the abdomen acquired. COMPARISON: [facility], CR, XR ABDOMEN 1V, 03/24/2023, 3:23. FINDINGS: Surgical changes and devices: Postsurgical gianni extend from the lower abdomen across the midline of the pelvis. Bowel: Bowel gas pattern is nonspecific, with no evidence of intestinal obstruction or perforation.. Soft tissues: No suspicious abdominal calcifications. Visualized solid organ contours appear normal in size. Bones: No suspicious bony lesions. IMPRESSION: Recent postoperative changes, nonspecific bowel gas pattern without evidence of intestinal obstruction or perforation. Esophagogastric tube is not identified. Dictated by: Mariano Hairston M.D. on 03/29/2023 at 14:32 Approved by: Mariano Hairston M.D. on 03/29/2023 at 14:33
--- NOTE | 2023-03-29 13:22 | CM.DPNOTE ---
Discharge Planning Note: Patient in bed, at bedside. She is postop bowel surgery POD 3. Yesterday a nurse Dustin from [facility] (through their [employer] insurance) came to visit patient and spouse and she signed up for services. Dustin called today for an update; he desribes their service as an overseer and can help with appointment etc. We had faxed referral to [facility] who declined patient due to does not accept their insurance. We sent referrals to [facility] (doesn't take insurance) and [facility] and awaiting acceptance notice (which could be doubtful due to [employer] insurance). PLAN: Discharge home to care of spouse when medically cleared. Follow up with [facility] if can accept or not. Dipti Martin RN/DCP
--- NOTE | 2023-03-29 14:37 | P.PN_ITS ---
Subjective Subjective Date Patient Seen: 03/29/23 Interval history: 82 F admitted with bowel obstruction now POD#3 s/p ex-lap with small bowel resection.?Pt is tolerating advanced diet, however no BM yet. AXR with nl postop changes. Exam Vital Signs (past 8 hours): - 03/29/23 07:32 03/29/23 08:32 03/29/23 12:00 Temperature 97.8 F 98 F Pulse Rate 66 66 66 Respiratory Rate 16 17 Blood Pressure 171/76 H 160/75 H Pulse Oximetry 94 96 96 Oxygen Delivery Method Room Air Oxygen Flow Rate 0 0 0 Fraction of Inspired Oxygen 21 Fraction of Inspired Oxygen 21 SaO2/FiO2 Ratio 447 Oxygen Delivery Method Room Air Oxygen Flow Rate 0 Narrative Exam Narrative: Gen: alert, NAD Lungs: clear Abd: mildly distended, surgical incision clean and dry Ext: no edema Objective Labs 03/29/23 04:20 03/29/23 04:20 Labs: Laboratory Results - last 24 hr 03/29/23 03/29/23 04:20 04:20 WBC 6.8 RBC 3.11 L Hgb 9.7 L Hct 27.9 L MCV 89.6 MCH 31.1 MCHC 34.7 RDW 13.4 Plt Count 163 Neut % (Auto) 66.8 Lymph % (Auto) 22.3 L [place] % (Auto) 8.5 Eos % (Auto) 2.3 Baso % (Auto) 0.1 Neut # (Auto) 4500 Lymph # (Auto) 1500 [place] # (Auto) 600 Eos # (Auto) 200 Baso # (Auto) 0 Sodium 137 Potassium 3.3 L Chloride 105 Carbon Dioxide 31 BUN 16 Creatinine 0.58 Estimated GFR > 60 BUN/Creatinine Ratio 27.6 H Glucose 103 Calcium 7.3 L Magnesium 1.9 Total Bilirubin 0.2 AST 24 ALT 7 Alkaline Phosphatase 47 Total Protein 4.7 L Albumin 2.3 L Globulin 2.4 Albumin/Globulin Ratio 1.0 [facility] Medical History (Updated 03/27/23 @ 08:51 by Reece Renee MD) Healthy adult Surgical History No pertinent past surgical history Social History household members: spouse and family Smoking Status: Former smoker alcohol intake: current Assessment & Plan Assessment & Plan narrative: 1. SBO, likely secondary to adhesions, s/p ex-lap and small bowel resection. -POD #3 ex-lap with small bowel resection with general surgery -postop anemia stable -management per surgical service, awaiting return of bowel fxn 2. Parkinson's Disease - Sinemet 50/200 bid 3. 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 6. Leukocytosis, resolved 7. CAROLIN, resolved ?- secondary to dehydration and SBO. Continue IV fluids. Creatinine 2.18 peak and down to nl range Code status:? Full code DVT prophylaxis:?Lovenox daily Surrogate decision maker:? Jw Simpson, Quality VTE Deep Vein Thrombosis/Pulmonary Embolism Present on Admission: No
--- NOTE | 2023-03-29 15:10 | PT.IPTN ---
Current Diagnoses Unspecified intestinal obstruction, unspecified as to partial versus complete obstruction (03/24/23) Encounter for follow-up examination after completed treatment for conditions other than malignant neoplasm (03/24/23) Surgery Performed Operation Date: 03/26/23 15:45 Actual Procedures p Exploratory Laparotomy with small bowel resection - Reece Renee MD Physical Therapy Treatment Note M2 PT-IP Current Condition Start: 03/28/23 15:18 Freq: NEEDED Status: Active Protocol: Document 03/28/23 14:15 AB (Rec: 03/28/23 15:38 AB [id number]) Physical Therapy Current Condition Current Condition Evaluation Date 03/28/23 Treatment Diagnosis SBO s/p ex-lap and small bowel resection; difficulty in walking Onset Date 03/24/23 M3 PT-IP Subjective Start: 03/28/23 15:18 Freq: NEEDED Status: Active Protocol: Document 03/29/23 15:58 TS (Rec: 03/29/23 16:13 TS [id number]) Subjective Physical Therapy Visit Type Type Treatment Note Visit Start Time 15:10 Visit Stop Time 15:39 Total Visit Minutes 29 Notes Spo2 92% on RA Number of ACUTE CARE NURSING ASSISTANT Visits 1 Physical Therapy Visit Comments Patient Comments Pt found resting in bed, spouse in room, agreeable to PT. M4 PT-IP Mobility and Gait Start: 03/28/23 15:18 Freq: NEEDED Status: Active Protocol: Document 03/29/23 15:58 TS (Rec: 03/29/23 16:13 TS [id number]) PT-Bed Mobility Assessment Rolling Type of Rolling Log Rolling Level of Assist Minimal Assistance Supine to Sit Supine to Sit Minimal Assistance Scooting Scooting to Edge of Bed Contact Guard Assistance PT-Transfer Assessment Sit to and From Stand Sit to and from Stand Minimal Assistance,1 Person Assistance,Use of Upper Extremities Equipment Transfer Assistive Device Gait Belt,Front Wheeled Walker Orthotic/Prosthetic Devices or Brace: No Comments Mobility Comments Logroll Flor to R side, pt demonstrated good carryover of sequencing but required some cueing for staying on bed before uprighting trunk. Sit to stand with FWW Flor for slight posterior LOB. In standing pt c/o some lightheadedness and SOB, SPo2 92% on RA, pt states it is difficult to breath from the tube she had in her throat. Pt ambulated in room ~50' CGA/ SBA with FWW, intially slow gait but progressed to quicker step thru gait. Pt was left in chair with spouse in room, call light nearby, RN notified . Gait Assessment Gait Gait Assistance Required: Minimum Assistance,1 Person Assist Distance (Feet) 50 Able to Maintain Weight Bearing Status Yes During Gait Assistive Devices Assistive Device Gait Belt,Front Wheeled Walker Orthotic/Prosthetic Devices or Brace: No Gait Deviations General Gait Pattern Decreased Stride Length, Decreased Feet Clearance, Flexed Trunk,Lateral Trunk Lean,Narrow Based Gait,Step-to Gait Factors Limiting Gait Function Factors Limiting Gait Function Decreased Activity Tolerance, Decreased Sensation,Decreased Strength,Difficulty Following Directions,Limited Range of Motion,Pain,Poor Balance,Poor Safety Awareness,Respiratory Distress Comments Gait Comments See mobility comments. PT-Balance Assessment Sitting Balance and Reactions Static Sitting Balance Ability Good Dynamic Sitting Balance Ability Fair Standing Balance and Reactions Static Standing Balance Ability Fair Dynamic Standing Balance Ability Fair Device Used FWW M5 PT-IP Objective Assessments Start: 03/28/23 15:18 Freq: NEEDED Status: Active Protocol: Document 03/28/23 14:15 AB (Rec: 03/28/23 15:38 AB [id number]) Orientation Orientation/Cognition Level of Alertness Alert Orientation Name Safety Awareness Decreased Safety Awareness Memory Description Short Term Impaired Gross Range of Motion Lower Extremity ROM Assessment Within Functional Limits Strength Lower Extremity Strength Assessment Left Impaired Hip 4-/5 Knee 4-/5 Ankle 3+/5 Muscle Tone Muscle Tone WNL Yes M6 PT-IP Treatment Start: 03/28/23 15:18 Freq: NEEDED Status: Active Protocol: Document 03/29/23 15:58 TS (Rec: 03/29/23 16:13 TS [id number]) Physical Therapy Treatment Education Education Provided Precautions,Weight Bearing Status,Post-Op Packet,Safety M7 PT-IP Assessment and Plan Start: 03/28/23 15:18 Freq: NEEDED Status: Active Protocol: Document 03/29/23 15:58 TS (Rec: 03/29/23 16:13 TS [id number]) PT Summary Assessment and Plan Potential Rehabilitation Potential Fair Summary Impairments Pain,ROM,Strength,Balance, Coordination,Sensation,Tone, Cognition,Bed Mobility, Transfers,Gait,Activity Tolerance Progress Towards Goals Progressing Toward Goals Assessment Summary Pt made good progress with her mobility this afternoon. She progressed her logroll to Flor with good carryover of sequencing but required some cueing to keep LEs on bed before uprighting trunk. She progressed her sit to stand to Flor, had x1 posterior LOB due to feeling SOB, Spo2 92%. She progressed her gait to ~50 ' SBA/CGA with FWW, initially had a slow gait and progressed to a quicker pace step thru gait. Spouse was present throughout session. PT is recommending 24/7 assist with HHPT vs SNF at this time. If pt continues to improve while here in hospital she could be safe to d/c with spouse. Goals Bed Mobility Goal Minimal Assistance Transfer Goal Minimal Assistance,Front Wheeled Walker Gait Goal Minimal Assistance,Front Wheel Walker Gait Distance 100 Other Goals improve bed mobility: SBA improve transfers using FWW SBA improve ambulation using FWW SBA 200 ft up/down 7 steps R rail ascending SBA up/down 7 steps without rails/ TOWER EQUIPMENT INSTALLER min A Days to Meet Goals 10 Frequency of Treatment Frequency Of Treatment Once a Day Treatment Plan Physical Therapy Treatment Plan Bed Mobility Training,Transfer Training,Gait Training, Therapeutic Exercise,Balance Retraining,Post Op Education, Discharge Planning,Hot or Cold Pack,Neuromuscular Re-ed, Coordination Retraining,Manual Therapy Precautions Abdominal Surgery Precautions Log Roll,Lifting Restrictions, Gait Belt above Incisional Area Recommendations To Nursing Amount of Assist Needed 1 Person Assist Discharge Recommendations PT Discharge Recommendations Home with 24/7 Assist Available,Home Health,SNF Rehab,Home vs SNF Equipment Needed for Home Before FWW Discharge Transportation Needs at Discharge Private Vehicle,Wheelchair/ Cabulance
[2023-03-29] MEDS: cefTRIAXone 2,000 MG in SODIUM CHLORIDE 0.9% 100 ML 200 MG IV (18:00)
--- NOTE | 2023-03-29 19:50 | PC.NURSE ---
1949- Discussed order to give a enema tonight. Patient states she is too tired to do that. Patient request to do the po stool softner and if no results by morning she will agree to take the enema. Will monitor.
--- NOTE | 2023-03-29 20:52 | P.PN_ITS ---
Subjective Subjective Date Patient Seen: 03/29/23 Time Patient Seen: 20:52 Interval history: Patient states that she is passing flatus but has not had any bowel movement. She is having some intermittent coughing and feeling hot and cold otherwise she is been out of bed and ambulatory in the room but not in the cole. Her pain is present but controlled. Exam Vital Signs (past 8 hours): - 03/29/23 17:50 03/29/23 20:06 Temperature 98 F 98.3 F Pulse Rate 78 78 Respiratory Rate 16 17 Blood Pressure 153/92 H 159/74 H Pulse Oximetry 97 93 Oxygen Flow Rate 0 Fraction of Inspired Oxygen 21 SaO2/FiO2 Ratio 447 Oxygen Delivery Method Room Air Oxygen Flow Rate 0 Narrative Exam Narrative: She is awake alert and oriented with her family member at the bedside currently. Abdomen is distended but soft and appropriately tender. The wound is clean dry and intact with gianni in place. Objective Labs 03/29/23 04:20 03/29/23 04:20 Labs: Laboratory Results - last 24 hr 03/29/23 03/29/23 04:20 04:20 WBC 6.8 RBC 3.11 L Hgb 9.7 L Hct 27.9 L MCV 89.6 MCH 31.1 MCHC 34.7 RDW 13.4 Plt Count 163 Neut % (Auto) 66.8 Lymph % (Auto) 22.3 L [place] % (Auto) 8.5 Eos % (Auto) 2.3 Baso % (Auto) 0.1 Neut # (Auto) 4500 Lymph # (Auto) 1500 [place] # (Auto) 600 Eos # (Auto) 200 Baso # (Auto) 0 Sodium 137 Potassium 3.3 L Chloride 105 Carbon Dioxide 31 BUN 16 Creatinine 0.58 Estimated GFR > 60 BUN/Creatinine Ratio 27.6 H Glucose 103 Calcium 7.3 L Magnesium 1.9 Total Bilirubin 0.2 AST 24 ALT 7 Alkaline Phosphatase 47 Total Protein 4.7 L Albumin 2.3 L Globulin 2.4 Albumin/Globulin Ratio 1.0 [facility] Medical History (Updated 03/27/23 @ 08:51 by Reece Renee MD) Healthy adult Surgical History No pertinent past surgical history Social History household members: spouse and family Smoking Status: Former smoker alcohol intake: current Assessment & Plan Assessment & Plan narrative: Postoperative day 3 status post exploratory laparotomy and small-bowel resection for a small bowel obstruction. She is passing flatus and tolerating clear liquids. She does have distention of the abdomen and an x-ray done today shows some possible ileus but there is also stool within her colon. I am starting a gentle bowel regimen with Colace twice daily and have recommended a Fleet's enema to see if that will help. Additionally I recommend walking in the halls as much as possible and getting to the chair 3 times daily. I also recommend DVT prophylaxis which has been ordered. I will continue to monitor her for any postoperative infections such as pneumonia or urinary tract infection but she certainly has some atelectasis at this time and I encouraged her to use incentive spirometer. Additionally she has a sore throat and I have ordered Cepacol lozenge to suture this. This may be from intubation. I will continue to follow along she can advance her diet as tolerated but I would move slowly as sometimes return of bowel function especially in elderly people who have had small-bowel resections may take several days and this is normal the best thing to do is to continue to encourage ambulation and minimize narcotics. Quality VTE Deep Vein Thrombosis/Pulmonary Embolism Present on Admission: No
[2023-03-29] MEDS: DOCUSATE 100 MG CAPSULE PO (21:05)
[2023-03-29] MEDS: LATANOPROST 0.005% OPHTH 2.5 ML 1 DROPS EYE-BOTH (21:05)
[2023-03-29] MEDS: SERTRALINE 50 MG TABLET PO (21:06)
[2023-03-29] MEDS: BENZOCAINE/MENTHOL 1 LOZ PKT 1 EACH PO (21:07)
[2023-03-30 04:05] VITALS: PULSE 85; O2SAT 92
[2023-03-30 04:07] VITALS: BP 165/74; PULSE 59; O2SAT 98
[2023-03-30 04:20] VITALS: BP 165/74; PULSE 71; RESP 18; TEMP 37; O2SAT 96
[2023-03-30 08:17] VITALS: O2SAT 81
[2023-03-30 08:18] VITALS: BP 153/76; PULSE 72; O2SAT 89
[2023-03-30] MEDS: CARBIDOPA-LEVODOPA ER 50/200 TABLET 1 EACH PO (08:53)
[2023-03-30] MEDS: ENOXAPARIN 40 MG/0.4 ML SYRINGE SUBCUT (08:53)
[2023-03-30] MEDS: DOCUSATE 100 MG CAPSULE PO (08:53)
--- NOTE | 2023-03-30 11:38 | CM.DPNOTE ---
Discharge Planning Note: Patient has still not returned to full bowel function, bowel regime instituted and patient is to mobilize more today. [facility] can accept, RN/PT. Faxed orders and F2F to [facility] and will notify them that we still do not know discharge date but in next day or two most likely. PLAN: When medically cleared, discharge home to care of spouse at discharge. Notify Whitney and fax DC summary Dipti Martin RN/DCP
[2023-03-30 12:00] VITALS: BP 151/74; PULSE 88; RESP 18; O2SAT 95
--- NOTE | 2023-03-30 12:00 | PT.IPTN ---
Current Diagnoses Unspecified intestinal obstruction, unspecified as to partial versus complete obstruction (03/24/23) Encounter for follow-up examination after completed treatment for conditions other than malignant neoplasm (03/24/23) Surgery Performed Operation Date: 03/26/23 15:45 Actual Procedures p Exploratory Laparotomy with small bowel resection - Reece Renee MD Physical Therapy Treatment Note M2 PT-IP Current Condition Start: 03/28/23 15:18 Freq: NEEDED Status: Active Protocol: Document 03/28/23 14:15 AB (Rec: 03/28/23 15:38 AB [id number]) Physical Therapy Current Condition Current Condition Evaluation Date 03/28/23 Treatment Diagnosis SBO s/p ex-lap and small bowel resection; difficulty in walking Onset Date 03/24/23 M3 PT-IP Subjective Start: 03/28/23 15:18 Freq: NEEDED Status: Active Protocol: Document 03/30/23 12:35 TS (Rec: 03/30/23 12:49 TS [id number]) Subjective Physical Therapy Visit Type Type Treatment Note Visit Start Time 12:00 Visit Stop Time 12:28 Total Visit Minutes 28 Notes Son and SO present. Number of JUSTICE COURT DEPUTY CLERK Visits 2 Physical Therapy Visit Comments Patient Comments RN reports pt had a BM and are looking to d/c today, pt agreeable to PT. M4 PT-IP Mobility and Gait Start: 03/28/23 15:18 Freq: NEEDED Status: Active Protocol: Document 03/30/23 12:35 TS (Rec: 03/30/23 12:49 TS [id number]) PT-Bed Mobility Assessment Rolling Type of Rolling Log Rolling Level of Assist Standby Assistance Supine to Sit Supine to Sit Standby Assistance Scooting Scooting to Edge of Bed Standby Assistance PT-Transfer Assessment Sit to and From Stand Sit to and from Stand Standby Assistance,Use of Upper Extremities Equipment Orthotic/Prosthetic Devices or Brace: No Comments Mobility Comments Logroll SBA to R side, pt demonstrated good carryover of sequencing. Sit to stand SBA with BUE support on FWW, pt has good standing balance with no retroleaning. She ambulated ~100' SBA with a slow step thru gait with FWW. She performed stairs x12SBA with B rail step over step, pt has no buckling or LOB. Pt was brought back to room to rest in chair for lunch, son and SO in room, awaiting d/c to home. Gait Assessment Gait Gait Assistance Required: Standby Assistance Distance (Feet) 100 Able to Maintain Weight Bearing Status Yes During Gait Assistive Devices Assistive Device Gait Belt,Front Wheeled Walker Orthotic/Prosthetic Devices or Brace: No Gait Deviations General Gait Pattern Decreased Stride Length, Decreased Feet Clearance, Narrow Based Gait Factors Limiting Gait Function Factors Limiting Gait Function Decreased Activity Tolerance, Decreased Strength,Limited Range of Motion,Pain, Respiratory Distress Comments Gait Comments See mobility comments. Stair Climbing Assessment Evaluation Level of Assist On Stairs Standby Assistance Devices Stair Climbing Assistive Devices Left Railing,Right Railing Technique/Endurance Stair Climbing Direction Ascend and Descend Stair Climbing Technique Step Over Step Number of Steps Climbed 12 Comments Stair Climbing Comments See mobility comments. PT-Balance Assessment Sitting Balance and Reactions Static Sitting Balance Ability Good Dynamic Sitting Balance Ability Fair Standing Balance and Reactions Static Standing Balance Ability Good Dynamic Standing Balance Ability Fair Device Used FWW M5 PT-IP Objective Assessments Start: 03/28/23 15:18 Freq: NEEDED Status: Active Protocol: Document 03/28/23 14:15 AB (Rec: 03/28/23 15:38 AB [id number]) Orientation Orientation/Cognition Level of Alertness Alert Orientation Name Safety Awareness Decreased Safety Awareness Memory Description Short Term Impaired Gross Range of Motion Lower Extremity ROM Assessment Within Functional Limits Strength Lower Extremity Strength Assessment Left Impaired Hip 4-/5 Knee 4-/5 Ankle 3+/5 Muscle Tone Muscle Tone WNL Yes M6 PT-IP Treatment Start: 03/28/23 15:18 Freq: NEEDED Status: Active Protocol: Document 03/30/23 12:35 TS (Rec: 03/30/23 12:49 TS [id number]) Physical Therapy Treatment Education Education Provided Precautions,Weight Bearing Status,Post-Op Packet,Safety M7 PT-IP Assessment and Plan Start: 03/28/23 15:18 Freq: NEEDED Status: Active Protocol: Document 03/30/23 12:35 TS (Rec: 03/30/23 12:49 TS [id number]) PT Summary Assessment and Plan Potential Rehabilitation Potential Fair Summary Impairments Pain,ROM,Strength,Balance, Coordination,Sensation,Tone, Cognition,Bed Mobility, Transfers,Gait,Activity Tolerance Progress Towards Goals Progressing Toward Goals Assessment Summary Pt continues to make progress with her mobility. She requires minimal cueing and demonstrates good carryover of her abdominal precautions and logroll technique. She is SBA with all mobility this session. She progressed her gait to ~100' SBA with FWW. She performed stairs SBA with B rails step over step with no LOB or buckling of LEs. Pt is still weak and somewhat frail , would recommend 24/7 assist at home from family and HHPT. Goals Bed Mobility Goal Minimal Assistance Transfer Goal Minimal Assistance,Front Wheeled Walker Gait Goal Minimal Assistance,Front Wheel Walker Gait Distance 100 Other Goals improve bed mobility: SBA improve transfers using FWW SBA improve ambulation using FWW SBA 200 ft up/down 7 steps R rail ascending SBA up/down 7 steps without rails/ CERTIFIED MEDICAL TECHNICIAN min A Days to Meet Goals 10 Frequency of Treatment Frequency Of Treatment Once a Day Treatment Plan Physical Therapy Treatment Plan Bed Mobility Training,Transfer Training,Gait Training, Therapeutic Exercise,Balance Retraining,Post Op Education, Discharge Planning,Hot or Cold Pack,Neuromuscular Re-ed, Coordination Retraining,Manual Therapy Precautions Abdominal Surgery Precautions Log Roll,Lifting Restrictions, Gait Belt above Incisional Area Recommendations To Nursing Amount of Assist Needed 1 Person Assist Discharge Recommendations PT Discharge Recommendations Home with 24/7 Assist Available,Home Health Equipment Needed for Home Before FWW Discharge Transportation Needs at Discharge Private Vehicle,Wheelchair/ Cabulance
--- NOTE | 2023-03-30 14:39 | PM.DS.1 ---
History of Present Illness History of Present Illness Chief complaint: abd/back pain Narrative: 82-year-old woman who presented last night with sudden onset of abdominal pain, distention, nausea and vomiting.? A CT scan in the ER was consistent with a small-bowel obstruction.? 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 She has never had a bowel obstruction before.? She reports that she is not currently passing any flatus.? An NG tube has been placed. Discharge Providers Provider Date of admission: 03/24/23 02:57 Discharge Date: 03/30/23 Primary care physician: Laney Damon PA-C Consults: 03/27/23 15:18 Consult to Physical Therapy Evaluate & Treat Comment: Physician Instructions: Evaluate and Treat 03/30/23 12:00 Consult to Home Health Routine Comment: Reason For Exam: Home Health: for RN, PT Discharge provider: Bernabe Oliver MD Summary Hospital Course Discharge Diagnosis: 1. Small bowel obstruction secondary to adhesions 2. parkinsons disease 3. CAROLIN Operative Date/Time/Diagnoses Date of procedure: 03/26/23 Time of procedure: 17:25 Pre-op diagnosis: Small bowel obstruction Post-op diagnosis: same Procedure & Clinicians Procedure: Exploratory laparotomy and small-bowel resection Same procedure as scheduled: Yes Surgeon: Reece Renee Jeweler Apprentice: [facility] Course: Pt had ex lap with Dr Renee. Did well postop. Tolerating regular diet and had large BM prior to discharge. Status at Discharge Cognitive/behavioral status at discharge: oriented Functional status at discharge: independent ambulation Overall status at discharge: patient is progressing back to baseline Time Spent with Patient Time spent: Greater than 30 minutes Exam Vital Signs (past 8 hours): - 03/30/23 08:17 03/30/23 08:18 03/30/23 08:18 Pulse Rate 72 Respiratory Rate Blood Pressure 153/76 H Pulse Oximetry 81 L 89 L 03/30/23 12:00 Pulse Rate 88 Respiratory Rate 18 Blood Pressure 151/74 H Pulse Oximetry 95 Fraction of Inspired Oxygen 21 SaO2/FiO2 Ratio 447 Oxygen Delivery Method Room Air Oxygen Flow Rate 0 Narrative Exam Narrative: Gen: alert, NAD Lungs: clear Abd: incision clean and dry Ext: no edema Objective Labs 03/29/23 04:20 03/29/23 04:20 [facility] Medical History (Updated 03/27/23 @ 08:51 by Reece Renee MD) Healthy adult Surgical History No pertinent past surgical history Social History household members: spouse and family Smoking Status: Former smoker alcohol intake: current Discharge Plan Discharge Plan Patient Disposition: Home Discharge orders & Medications Prescriptions: Continued latanoprost 0.005 % Drops 1 drp EYE-BOTH BEDTIME carbidopa-levodopa 50-200 mg Tablet Extended Release 1 tab PO BID sertraline 50 mg Tablet 50 mg PO DAILY Follow up/Referrals: Laney Damon PA-C [Primary Care Provider] - Karen Braxton MD [Physician] - (f/u 7 to 10 days) Diet/Activity/Treatments Diet: Regular Visit Report/Discharge Packet Stand Alone Forms: Patient Portal/API, Stroke Signs & Symptoms Discharge Data Primary Care Provider: Laney Damon Quality VTE Deep Vein Thrombosis/Pulmonary Embolism Present on Admission: No
== END 2023-03-30 15:40 | disposition home or self-care (01) | DRG 329 ==
LOC: ED 02:57 → AC 02:58 → ICU 03-26 17:12
PROVIDERS: Internal Medicine; Neuromusculoskeletal Medicine, Sports Medicine; Surgery; Admitting Provider Internal Medicine; Emergency Provider Emergency Medicine; Family Provider Physician Assistant; PCP Physician Assistant; Referring Provider Emergency Medicine; Visit Provider Internal Medicine
PROC: 0DB80ZZ Excision of Small Intestine, Open Approach (ICD-10-PCS; CPT 49000; principal; 2023-03-26 15:45)
DX: K56.50 Intestinal adhesions [bands], unspecified as to partial versus complete obstruction (principal); K55.029 Acute infarction of small intestine, extent unspecified; N17.9 Acute kidney failure, unspecified; G20 Parkinson's disease; H40.9 Unspecified glaucoma; F32.A Depression, unspecified; Z87.891 Personal history of nicotine dependence
CPT/HCPCS: 36415; 71045; 74018; 74177; 80048; 80053; 81001; 81003; 83605; 83690; 83735; 84145; 85025; 87040; 87086; 87797; 93005; 93010; 94762; 96374; 96375; 97116; 97162; 97530; 99285; J0330; J0696; J1100; J1170; J1644; J1650; J2270; J2405; J2704; J3010; Q9967

== ENCOUNTER 2023-12-02 15:04 | Emergency (ER) | payer OTHER, MEDICARE, SELFPAY ==
[2023-05-01 11:37] VITALS: BMI 22.6
[2023-12-02 15:48] VITALS: BP 154/90; PULSE 83; RESP 18; TEMP 37.5; O2SAT 97; BMI 21.2
--- NOTE | 2023-12-02 19:05 | PC.NURSE ---
Patient was brought over from the [facility] for c/o rash, vaginal prolapse, and nausea. Reports nausea has been going on for weeks, vaginal prolapse for days, and rash since yesterday. There is a lower back rash that is mostly on the left side and half of the right side. Patient vague about her symptoms regarding her 3 issues and shushed me when I asked directly about her vagina prolapse.
[2023-12-02 19:11] VITALS: BP 138/83; PULSE 83; O2SAT 96
--- NOTE | 2023-12-02 19:21 | ED.GENADULT ---
HPI - General Adult General Chief complaint: Urogenital-Female Stated complaint: vag.prolapse PCP ref Time Seen by Provider: 12/02/23 18:10 Source: patient and family Mode of arrival: Wheelchair History of Present Illness HPI narrative: Patient is an 83-year-old female. History of Parkinson's disease. Is here for evaluation of a rash on her lower back. It has been there for the past couple days. Her did put some castor oil over the area 1 time at the start of the symptoms. It did seem to improve it for short period of time. It is somewhat tender to palpation and also itching. She was also here for concerns of a vaginal prolapse. States she felt what seemed to be like a balloon in her vagina couple days ago. She has not having any problems urinating. She was feeling her bladder empty. No fevers. No change in bowel habits. Related Data Home Medications Medication Instructions Recorded Confirmed latanoprost 0.005 % eye drops 1 drp EYE-BOTH BEDTIME 05/04/18 12/02/23 carbidopa ER 50 mg-levodopa 200 mg 1 tab PO BID 03/24/23 12/02/23 tablet,extended release sertraline 50 mg tablet 50 mg PO DAILY 03/24/23 12/02/23 Allergies Allergy/AdvReac Type Severity Reaction Status Date / Time Penicillins Allergy Unknown Verified 12/02/23 14:35 Review of Systems Constitutional Constitutional: Reports system reviewed and no additional complaints, except as documented Gastrointestinal Gastrointestinal: Reports system reviewed and no additional complaints, except as documented Genitourinary Genitourinary: Reports system reviewed and no additional complaints, except as documented Integumentary/Breasts Skin/Breast: Reports system reviewed and no additional complaints, except as documented Neurologic Neurologic: Reports system reviewed and no additional complaints, except as documented Patient History Medical History Healthy adult Surgical History (Updated 05/06/23 @ 10:18 by Jovanna Katz RN) Hx of resection of small bowel Social History household members: spouse and family Smoking Status: Former smoker alcohol intake: current Smoking Status: Former smoker alcohol intake frequency: holidays/special occasions only Substance Use Type: does not use Exam Initial Vital Signs Initial Vital Signs: Vital Signs Temperature 99.5 F 12/02/23 15:48 Pulse Rate 83 12/02/23 15:48 Respiratory Rate 18 12/02/23 15:48 Blood Pressure 154/90 H 12/02/23 15:48 Pulse Oximetry 97 12/02/23 15:48 Oxygen Delivery Method Room Air 12/02/23 15:48 GI Inspection: normal to inspection and non-distended General: bladder normal to inspection External Female Exam: normal external appearance Other: No bladder nor vaginal prolapse noted Skin Other: Patient does have dry flaky skin bilateral lower back. Minimal erythema. No pustules. No vesicles. Course Vital Signs Vital signs: Vital Signs - 8 hr 12/02/23 19:11 12/02/23 19:11 Pulse Rate 83 Blood Pressure 138/83 Pulse Oximetry 96 Medical Decision Making MDM Narrative Medical decision making narrative: Patient does not have any findings consistent with a vaginal nor bladder prolapse on her exam today. They did tell them that potentially this is something that can come and go it that they should talk with her primary doctor about a referral to see business solutions consultant. We discussed return precautions with regard to this. Patient does have what appears to be a dry flaky skin on her bilateral lower back. Is not consistent with zoster. Not consistent with cellulitis. We discussed this as well. Recommended starting with a moisturizing regimen. I discuss this with them. If her symptoms are not improving with this they could try a [id number] topical steroid. There was no indication for antibiotics. Discussed all this with the patient and . They were return precautions. They expressed understanding and agreement. Discharge Plan Departure Patient Disposition: Home Clinical Impression: Rash Instructions: DI for Rash Activity Restrictions/Additional Instructions: Continue to take all of your medications as directed. I would recommend that you start with a moisturizer cream on your lower back for the next several days. If your symptoms are not improving with that then I would recommend a [id number] hydrocortisone cream. If the symptoms are worsening please return to the emergency department. I also recommend that you talk with your primary doctor about a referral to see business solutions consultant. Prescriptions: No Action latanoprost 0.005 % Drops 1 drp EYE-BOTH BEDTIME carbidopa-levodopa 50-200 mg Tablet Extended Release 1 tab PO BID sertraline 50 mg Tablet 50 mg PO DAILY Referrals: Laney Damon PA-C [Primary Care Provider] - Stand Alone Forms: Patient Portal/API, Work Release Note
== END 2023-12-02 19:46 | disposition home or self-care (01) ==
PROVIDERS: Emergency Provider Emergency Medicine; Family Provider Physician Assistant; PCP Physician Assistant
DX: R21 Rash and other nonspecific skin eruption (principal)
CPT/HCPCS: 99281